=== PATIENT | male | born 1950 | race African-American/Black ===

== ENCOUNTER 2020-04-12 14:48 | Outpatient (RCR) | payer MEDICARE, OTHER, SELFPAY | END 2020-04-12 23:59 | LOC: IMMUN 14:48 | PROVIDERS: PCP Nurse Practitioner Family; Referring Provider Family Medicine; Visit Provider Family Medicine | DX: Z23 Encounter for immunization (principal) | CPT/HCPCS: 0011A; 0012A ==

== ENCOUNTER → 2022-05-07 | Outpatient (CLI) | payer MEDICARE, OTHER, SELFPAY ==
[2022-05-07] MEDS: 0.9% NaCl Peripheral Flush Adult/Peds IV (11:52)
[2022-05-07] MEDS: 0.9% NaCl IVPB Med Flush (250 mL) 15 ML IV (11:52)
[2022-05-07 11:53] VITALS: BP 146/78; PULSE 88; RESP 16; TEMP 36.2; O2SAT 98; BMI 26.1
[2022-05-07 14:09] VITALS: BP 126/64; PULSE 78; RESP 16; O2SAT 98
== END | disposition home or self-care (01) ==
LOC: MEDOUTP 10:56
PROVIDERS: PCP Nurse Practitioner Family; Referring Provider Internal Medicine Nephrology; Visit Provider Internal Medicine Nephrology
DX: N18.4 Chronic kidney disease, stage 4 (severe) (principal); D63.1 Anemia in chronic kidney disease
CPT/HCPCS: 96365; 96366; J1756; J7050; A4216

== ENCOUNTER → 2022-05-13 | Outpatient (CLI) | payer MEDICARE, OTHER, SELFPAY ==
[2022-05-13 12:10] VITALS: BP 144/70; PULSE 77; RESP 16; TEMP 35.9; O2SAT 100; BMI 25.0
[2022-05-13] MEDS: 0.9% NaCl IVPB Med Flush (250 mL) 15 ML IV (12:21)
[2022-05-13] MEDS: 0.9% NaCl Peripheral Flush Adult/Peds IV (12:21)
[2022-05-13 14:28] VITALS: BP 129/67; PULSE 81; RESP 17; TEMP 36.1; O2SAT 97
== END | disposition home or self-care (01) ==
LOC: MEDOUTP 11:57
PROVIDERS: PCP Nurse Practitioner Family; Referring Provider Internal Medicine Nephrology; Visit Provider Internal Medicine Nephrology
DX: N18.4 Chronic kidney disease, stage 4 (severe) (principal); D63.1 Anemia in chronic kidney disease
CPT/HCPCS: 96365; 96366; J1756; J7050; A4216

== ENCOUNTER → 2022-05-20 | Outpatient (CLI) | payer MEDICARE, OTHER, SELFPAY ==
[2022-05-20 12:04] VITALS: BP 153/71; PULSE 84; RESP 16; TEMP 36; O2SAT 100; BMI 25.0
[2022-05-20] MEDS: 0.9% NaCl IVPB Med Flush (250 mL) 15 ML IV (12:12)
[2022-05-20] MEDS: 0.9% NaCl Peripheral Flush Adult/Peds IV (12:12)
[2022-05-20 14:16] VITALS: BP 143/71; PULSE 82
== END | disposition home or self-care (01) ==
LOC: MEDOUTP 11:48
PROVIDERS: PCP Nurse Practitioner Family; Referring Provider Internal Medicine Nephrology; Visit Provider Internal Medicine Nephrology
DX: N18.4 Chronic kidney disease, stage 4 (severe) (principal); D63.1 Anemia in chronic kidney disease
CPT/HCPCS: 96365; 96366; J1756; J7050; A4216

== ENCOUNTER 2022-06-11 14:21 | Inpatient (IN) | payer MEDICARE, OTHER, SELFPAY ==
[2022-06-11 13:29] VITALS: BMI 20.4
[2022-06-11 13:30] VITALS: BP 120/62; PULSE 83; RESP 16; TEMP 36.6; O2SAT 94
--- NOTE | 2022-06-11 15:03 | WOUNDNOTE ---
wound photo: sacrum
--- NOTE | 2022-06-11 15:08 | WOUNDNOTE ---
wound photo: sacrum
--- NOTE | 2022-06-11 16:32 | RAD_ITS ---
STUDY: X-RAY CHEST REASON FOR EXAM: Male, 72 years old. cough TECHNIQUE: PA and lateral views of the chest. COMPARISON: None. FINDINGS: Left costophrenic angle blunting is noted with chronic effusion not excluded. There is no demonstrated pleural abnormality. Normal size heart. Normal mediastinum and leslie. Normal visualized pulmonary arteries. There is prominence along the left lateral mediastinum which is concerning for underlying aortic aneurysm though not completely characterized. There are diffuse degenerative changes of the visualized thoracic spine. Normal visualized ribs, clavicles, and shoulders. There is no demonstrated abnormality of the visualized soft tissue structures of the upper abdomen. RAD/Chest PA and Lateral IMPRESSION: There is a smooth bordered shadow overlying the left aspect of the aortic arch and mediastinum concerning for underlying thoracic aortic aneurysm with chronic layering left effusion also a consideration. Recommend cross-sectional CT chest imaging with contrast for further characterization and baseline imaging. Electronically Signed: Rony Luna DO at 17:03 EDT ,
--- NOTE | 2022-06-11 16:34 | CON.PCM.SX_ITS ---
Assessment & Plan Assessment/Plan (1) Chronic kidney disease (CKD): PLAN: This is a 72-year-old male with past history of hypertension and hyperlipidemia who has been monitored for a diagnosis of chronic kidney disease over the previous 7 to 8 years. He appears to have had a gradual deterioration of his renal function with a more acute change this past week. Nephrology, Dr. Carrillo, now plans to initiate hemodialysis for patient?duration unknown. Patient has had no prior history of central line placement, but also does not have a fistula/graft. Therefore, he requires placement of chronic access via a tunneled hemodialysis catheter. This procedure was discussed with the patient in detail to include infection risk. He tentatively accepts the recommendation, but states that he must also discussed these plans with his spouse. Given that Mr. Zelaya is right-hand dominant, I would imagine his left upper extremity would be initially preferred for fistula consideration. Therefore, it is my plan to proceed to the operating room tomorrow early afternoon for ultrasound and fluoroscopy guided placement of right versus left tunneled hemodialysis catheter. Patient should be made n.p.o. past midnight in anticipation of this procedure. HPI Consult Data Date of Consult: 06/11/22 HPI Narrative Reason for Consultation: Placement of tunneled hemodialysis catheter HPI Narrative: ILDA ZELAYA, is a 72 M who presents to [facility] at the behest of his specialist field engineer, Dr. Carrillo for worsening renal function. He states that he has been monitored for the last 70 years for kidney dysfunction, but over the last 2 days developed increasing shortness of breath and weakness. Additionally he has noted a cough, but denies any increased confusion. With these reports, nephrology obtained new labs that showed increase in patient's BUN and creatinine. He was advised to present to the emergency department for evaluation, but first went to [place] emergency department before arriving to our facility. Surgery has been consulted to evaluate patient for possible tunneled hemodialysis access. Mr. Zelaya denies any prior consultation for fistula. He confirms that he is right-handed. He denies any history of central lines or PICC lines. He denies any history of MRSA or staph infections. [facility] Medical History (Updated 06/11/22 @ 16:[address] Bennie Jorgensen MD) CKD (chronic kidney disease), stage IV Hypertension Home Medications cholecalciferol (vitamin D3) 125 mcg (5,000 unit) tablet (Vitamin D3) 125 mcg PO DAILY 05/07/22 [History Last Taken Unknown] ferrous sulfate 325 mg (65 mg iron) tablet (iron) 325 mg PO DAILY 05/07/22 [History Last Taken Unknown] finasteride 5 mg tablet 5 mg PO DAILY 05/07/22 [History Last Taken 06/10/22] losartan 100 mg tablet 100 mg PO DAILY 05/07/22 [History Last Taken 06/10/22] multivitamin 1 tab PO DAILY 05/07/22 [History Last Taken Unknown] simvastatin 40 mg tablet 40 mg PO DAILY 05/07/22 [History Last Taken 06/10/22] tamsulosin 0.4 mg capsule (Flomax) 0.4 mg PO DAILY 05/07/22 [History Last Taken 06/10/22] vardenafil 20 mg tablet 20 mg PO DAILY PRN sexual dysfunction 05/07/22 [History Last Taken Unknown] amlodipine 10 mg tablet 10 mg PO DAILY bp 06/11/22 [History Last Taken Unknown] furosemide 40 mg tablet 40 mg PO DAILY PRN swelling 06/11/22 [History Last Taken Unknown] hydrocodone-acetaminophen 5-325mg 5mg-325mg 1 tab PO Q6H PRN Pain 06/11/22 [History Last Taken 06/10/22] Allergy/AdvReac Type Severity Reaction Status Date / Time No Known Allergies Allergy Verified 05/20/22 12:04 Family History no significant family his Surgical History (Updated 06/11/22 @ 13:42 by Reny Funes) H/O knee surgery Social History Smoking Status: Former smoker Physical Exam Const Constitutional Narrative: Patient appears somewhat drowsy and slow to respond at times General Appearance: cooperative Neck Neck Narrative: No scars along bilateral neck or upper chest. No signs of rash or infection Charges/Coding Visit Charges Inpatient E&M: 45246 Init Hosp L2
[2022-06-11 16:55] VITALS: O2SAT 86; O2SAT 93
[2022-06-11 16:57] VITALS: BP 118/46; PULSE 84; RESP 18; TEMP 36.7; O2SAT 93
[2022-06-11] MEDS: Tamsulosin HCl 0.4 MG Capsule PO (17:03)
--- NOTE | 2022-06-11 18:15 | CT_ITS ---
EXAM: CT ANGIOGRAPHY CHEST WITHOUT AND WITH INTRAVENOUS CONTRAST CLINICAL INDICATION: abnormal chest x-ray TECHNIQUE: Helically acquired angiography images were obtained of the chest without and with intravenous contrast. This CT exam was performed using one or more of the following dose reduction techniques: automated exposure control, adjustment of the mA and/or kV according to patient size, and/or use of iterative reconstruction technique. This report was created using [employer] [address] [employer] report generation technology. MIP reconstructed images were created and reviewed. CONTRAST: IV 75mL [id number]-[id number] COMPARISON: None. FINDINGS: PULMONARY ARTERIES: Unremarkable. Normal in caliber. No evidence of pulmonary embolism. AORTA: Unremarkable. Normal in caliber. No evidence of dissection. GREAT VESSELS OF AORTIC ARCH: Unremarkable. Normal in caliber. No evidence of dissection. LUNGS AND PLEURAL SPACES: There is a loculated fluid collection at the left base which may represent a loculated effusion. There is also consolidation in the left lower lobe compatible with pneumonia. There is a second fluid collection within the consolidated lung possibly representing developing left lower lobe abscess. No mass. HEART: Unremarkable. Heart size is normal. No pericardial effusion. No significant coronary artery calcifications. MEDIASTINUM: Unremarkable. No mediastinal or hilar adenopathy. Esophagus is unremarkable. No hiatal hernia. THYROID: Unremarkable. No thyroid lesions. BONES/JOINTS: Unremarkable. No suspicious lytic or blastic abnormality. CT/CTA Chest W/WO Contrast IMPRESSION: Large loculated fluid collection in the left lower lobe compatible with a loculated effusion. There is consolidation in the left base compatible with pneumonia. There is a second fluid collection within the consolidated lung which may represent a developing abscess. Electronically Signed: Flo Mcallister MD at 20:01 EDT ,
--- NOTE | 2022-06-11 19:58 | HP.PCM.HOS_ITS ---
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 It was noted that the patient's creatinine had elevated over his baseline and there were concerns that the patient was going into renal failure. Patient had been seen by nephrology for several years and his labs have been monitored for worsening kidney function. Patient's chronic medical problems include hypertension, hyperlipidemia, and BPH. Lab obtained in the emergency room at [facility] revealed his creatinine to be 9.44, BUN was 148, potassium was 3.3, and patient's hemoglobin was 7.5. Patient's creatinine last week was 8 according to the emergency room physician at [facility]. Patient was admitted to PCU, he will be seen by nephrology and also by general surgery for insertion of a tunneled dialysis catheter. [facility] Medical History (Updated 06/11/22 @ 16:[address] Bennie Jorgensen MD) CKD (chronic kidney disease), stage IV Hypertension Home Medications cholecalciferol (vitamin D3) 125 mcg (5,000 unit) tablet (Vitamin D3) 125 mcg PO DAILY 05/07/22 [History Last Taken Unknown] ferrous sulfate 325 mg (65 mg iron) tablet (iron) 325 mg PO DAILY 05/07/22 [History Last Taken Unknown] finasteride 5 mg tablet 5 mg PO DAILY 05/07/22 [History Last Taken 06/10/22] losartan 100 mg tablet 100 mg PO DAILY 05/07/22 [History Last Taken 06/10/22] multivitamin 1 tab PO DAILY 05/07/22 [History Last Taken Unknown] simvastatin 40 mg tablet 40 mg PO DAILY 05/07/22 [History Last Taken 06/10/22] tamsulosin 0.4 mg capsule (Flomax) 0.4 mg PO DAILY 05/07/22 [History Last Taken 06/10/22] vardenafil 20 mg tablet 20 mg PO DAILY PRN sexual dysfunction 05/07/22 [History Last Taken Unknown] amlodipine 10 mg tablet 10 mg PO DAILY bp 06/11/22 [History Last Taken Unknown] furosemide 40 mg tablet 40 mg PO DAILY PRN swelling 06/11/22 [History Last Taken Unknown] hydrocodone-acetaminophen 5-325mg 5mg-325mg 1 tab PO Q6H PRN Pain 06/11/22 [History Last Taken 06/10/22] Allergy/AdvReac Type Severity Reaction Status Date / Time No Known Allergies Allergy Verified 05/20/22 12:04 Family History no significant family his Surgical History (Updated 06/11/22 @ 13:42 by Reny Funes) H/O knee surgery Social History Smoking Status: Former smoker ROS Constitutional Constitutional: Reports change in weight, fatigue and weakness; Denies anorexia, fever(s) or night sweats Eyes Eyes: Denies blurry vision, change in vision, discharge from eye(s) or eye pain Cardiovascular Cardiovascular: Denies chest pain, claudication, dyspnea on exertion, edema or palpitations Respiratory/Chest Respiratory/Chest: Reports cough; Denies hemoptysis, shortness of breath at rest or shortness of breath with exertion Gastrointestinal Gastrointestinal: Denies abdominal pain, constipation, diarrhea, hematemesis, hematochezia, melena, nausea or vomiting Genitourinary Genitourinary: Denies dysuria, hematuria, urinary frequency, urinary hesitancy, urinary incontinence or urinary urgency Musculoskeletal Musculoskeletal: Denies back pain, joint pain, joint stiffness, joint swelling, myalgias or neck pain Neurologic Neurologic: Denies abnormal gait, abnormal speech, dizziness, focal weakness, headache(s), loss of vision, numbness, other visual disturbances, paresthesias, syncope or tingling Psychiatric Psychiatric: Denies anxiety, cognitive impairment, depression, irritability, mood swings or suicidal ideation Endocrine Endocrinology: Denies change in body appearance, cold intolerance, excessive sweating, heat intolerance, polydipsia or polyuria Hematologic/Lymphatic Hematologic/Lymphatic: Denies none, anemia, easy bleeding, easy bruising or lymphadenopathy Allergic/Immunologic Allergic/Immunologic: Denies rhinitis, urticaria, eczemia or asthma Vital Signs Vital Signs Vital Signs: 06/11/22 13:30 06/11/22 16:55 06/11/22 16:57 Temperature 97.8 F 98.1 F Temperature Source Oral Oral Pulse Rate 83 84 Respiratory Rate 16 18 Respiratory Effort Respiratory Depth Respiratory Pattern Blood Pressure 120/62 118/46 L Blood Pressure Mean 81 70 Blood Pressure Source Monitor Monitor Blood Pressure Position Semi-Fowlers Semi-Fowlers Blood Pressure Location Right Arm Right Arm Pulse Ox 94 86 93 Oxygen Delivery Method Room Air Room Air Nasal Cannula Oxygen Flow Rate (L/min) 2 06/11/22 16:55 06/11/22 14:00 06/11/22 17:14 Temperature Temperature Source Pulse Rate Respiratory Rate Respiratory Effort Normal Non-Labored Normal Non-Labored Respiratory Depth Normal Normal Respiratory Pattern Normal Normal Blood Pressure Blood Pressure Mean Blood Pressure Source Blood Pressure Position Blood Pressure Location Pulse Ox 93 Oxygen Delivery Method Nasal Cannula Room Air Nasal Cannula Oxygen Flow Rate (L/min) 2 2 Weight Weight: 70.1 kg Body Mass Index (BMI) 20.4 Physical Exam Const alert, oriented x3 and no apparent distress Constitutional Narrative: Patient appears cachectic and unwell General Appearance: cooperative, well kempt and well developed Orientation / Consciousness: awake, oriented to person, oriented to place and oriented to time HEENT normocephalic, head/scalp atraumatic, hearing grossly normal bilaterally and moist oral mucous membranes Eyes PERRL, EOMs intact bilaterally and conjunctivae normal Neck supple, no JVD, thyroid normal and no carotid bruits General: trachea midline Resp normal respiratory effort, no retractions and no use of accessory muscles Resp Narrative: Inspiratory rales are noted over the lower lung buckner bilaterally Auscultation: rales bilateral lower; Negative for rhonchi or wheezes Cardio regular rate, regular rhythm, S1 normal heart sound, S2 normal heart sound, no murmurs, no rub and no gallops GI normal to inspection, nondistended, normoactive bowel sounds, soft to palpation, non-tender and non-distended Extremity no clubbing, cyanosis or edema Skin no rashes or lesions noted General Skin Exam: no breakdown Neuro oriented x3, CN's II-XII intact bilaterally, moves all extremities, no focal motor deficits and no sensory deficits noted Sensorium / Orientation: awake and alert Speech: speech normal Psych affect normal Results Radiology Impression Chest X-Ray 06/11/22 16:32 IMPRESSION: There is a smooth bordered shadow overlying the left aspect of the aortic arch and mediastinum concerning for underlying thoracic aortic aneurysm with chronic layering left effusion also a consideration. Recommend cross-sectional CT chest imaging with contrast for further characterization and baseline imaging. Electronically Signed: Rony Luna DO at 17:03 EDT , Assessment & Plan Assessment/Plan (1) Chronic kidney disease (CKD): PLAN: Plan 1. Acute renal failure on a backdrop of chronic kidney disease stage IV-patient was admitted to PCU as a direct admission from [facility], he will be seen in consultation by nephrology, he will be seen by general surgery for placement of a tunneled dialysis catheter. Labs will be monitored. #2 essential hypertension-patient will remain on his current blood pressure medications and his blood pressure will be monitored #3 cough-nonproductive according to patient, etiology unclear-I have decided to order chest x-ray, patient stated that he has not had a chest x-ray recently, d epending on this result, he may need to have further imaging studies. #4 anorexia-etiology unclear, according to nursing, patient and patient's spouse have told nursing that he has lost 20 to 30 pounds of weight over the last few months, this may be due to increasing kidney failure or some other process such as a neoplasm. Patient will be seen by nutritional services #5 BPH-patient's bladder will be scanned to make sure he is not retaining urine, I will talk to nephrology regarding the last time the patient had an ultrasound of the kidneys. Total clinical time spent by myself addressing the patient's medical issues, reviewing all of his data, and collaborating with patient's care team: 75 minutes Charges/Coding Visit Charges Inpatient E&M: 46436 Init Hosp L3
--- NOTE | 2022-06-11 20:35 | PCM.HOSP.N ---
Hospitalist Note Patient had abnormal chest x-ray done this afternoon, it required a CTA of the chest which showed a possible pneumonia at the left lung base, there was also noted to be a large loculated fluid collection in the left lower lobe compatible with a loculated effusion. I will obtain sputum cultures on the patient, get blood cultures x2, I have the patient be seen by pulmonary medicine, and placed the patient on IV Rocephin and Zithromax.
[2022-06-11] MEDS: Ceftriaxone 1 GM/50 ML BAG IV (21:47)
[2022-06-11] MEDS: Atorvastatin Calcium 20 MG Tablet PO (21:53)
[2022-06-11 21:54] VITALS: BP 124/56; PULSE 91; RESP 18; TEMP 36.8; O2SAT 95
[2022-06-11 23:10] VITALS: O2SAT 88
[2022-06-11 23:16] VITALS: O2SAT 93
--- NOTE | 2022-06-11 23:19 | NURSING ---
pt refused heparin subq and also refused 2nd set of blood cultures. Pt education provided, pt continues to refused. aware.
[2022-06-12] VITALS (10 sets, daily range): BP systolic 89–126; BP diastolic 42–78; PULSE 65–100; RESP 16–18; TEMP 36.1–36.8; O2SAT 88–100; BMI 20.4
--- NOTE | 2022-06-12 | FLU_PTH ---
PATIENT: ILDA CAST LOC: [facility] U#:[id number] AGE/SX: 72/M ROOM: [facility] RE06/11/[address]: Dr. Deon Boucher DO : 1950 BED: 1 DIS: 06/12/2022 SPEC #: [id number] RECD: 06/12/22 12:32 STATUS: RUSSEL RE #: [id number] SEBASTIEN: 06/12/22 00:[address]: Deon Boucher DEPT: CYTOLOGY RECD BY: Griselda Singh ENTERED: 06/13/22 10:03 SP TYPE: Fluid OTHR DR: MD Dr. Brandyn Espinal DO Dr. Jayaprakas Dasari, MD Dr. Lee Ann Baggott, MD Dr. Michael Bortz, MD Dr. Tanmay Panchabhai, MD Christina Muller, GATE WATCHMAN-C Jossue Yeboah, GATE WATCHMAN-C Tissues: Pleural fluid, NOS Procedures: Special Stain Group II Surgery Specimen Level IV Cytospin Fluid HEADER OPERATION: Ultrasound-guided thoracentesis left PRE-OP DIAGNOSIS: Left pleural effusion TISSUE SUBMITTED: Thoracentesis fluid for cytology DIAGNOSIS CYTOLOGY Thoracentesis fluid for cytology (cytospin and cell block): Negative for malignant cells. Marked acute inflammation. AM:barbara 06/14/2022 COMMENT Case has been reviewed in consultation with Dr. Grant who concurs with the above diagnosis. IDC:SJ CYTOLOGY STUDY Slides are reviewed. CYTOLOGY GROSS Received is 90 ml of milky white fluid labeled with the patient's name and and designated per the requisition as thoracentesis. Submitted for cytology preparation including cell block. / barbara 06/13/2022 TC:2 CPT: 82040, 53926
--- NOTE | 2022-06-12 05:14 | NURSING ---
pt refused AM lab works, notified.
--- NOTE | 2022-06-12 05:55 | EKG12_ITS ---
Test Reason : AM EKG Blood Pressure : / mmHG Vent. Rate : 088 BPM Atrial Rate : 088 BPM P-R Int : 166 ms QRS Dur : 112 ms QT Int : 388 ms P-R-T Axes : 047 014 064 degrees QTc Int : 469 ms Normal sinus rhythm Minimal voltage criteria for LVH, may be normal variant ( [place] ) Borderline ECG No previous ECGs available Confirmed by TRAM CASEY, LILIAN ([id number]), editor publications MIRTHA MELGAR ([id number]) on 06/13/2022 9:26:00 AM Referred By: Deon Boucher Confirmed By:LILIAN UGALDE MD
--- NOTE | 2022-06-12 10:00 | EX.PCM.CONCC ---
Assessment & Plan Assessment/Plan (1) Pleural effusion, left: PLAN: Plan RECOMMENDATIONS: 1. Obtain diagnostic and therapeutic thoracentesis on the left 2. Possible transfer for CT surgery evaluation 3. Consider temporary hemodialysis line until empyema can be ruled out 4. Encourage incentive spirometer 5. Outpatient evaluation with pulmonary function testing 6. Agree with empiric antibiotics IMPRESSIONS: 1. Acute hypoxic respiratory insufficiency secondary to new left pleural effusion with possible abscess Review of the CT scan does show findings consistent with a partially loculated left pleural effusion and potential secondary abscess. High clinical suspicion for empyema versus parapneumonic effusion. Patient does have some emphysematous changes, but this does not appear to be significant. Metabolic acidosis will increase respiratory muscle demand, but patient appears to be relatively comfortable at this time. A diagnostic and therapeutic thoracentesis has been ordered. If this is consistent with empyema, patient will have to be transferred for CT surgery evaluation. Patient will be at risk for bronchopleural fistula given the close proximity of possible abscess and pleural effusion. 2. Acute on chronic kidney disease Nephrology has been consulted. Patient with significant elevation of BUN and creatinine. Would consider placement of a temporary hemodialysis line as patient may be bacteremic given CT scan of the chest. Defer to surgery and primary service. Hemodialysis likely does not need to have much volume removal as patient appears to be overall volume low, likely secondary to decreased p.o. intake. However, acid-base and improvement in uremia will decrease metabolic demand for respiratory compensation. 3. Chronic pain syndrome/BPH/hypertension/Trypanophobia Complicates care, management, recovery and prognosis. Okay to continue with baseline medications from my perspective. We will continue to work with the patient to allow for blood draws and invasive procedures necessary to make a diagnosis. Patient's appears to be significantly helpful in this aspect. Would hold on any further diuretics HPI Consult Data Date of Consult: 06/12/22 HPI Narrative HPI Narrative: ILDA CAST is a 72 M, with past medical history listed below, who presents to [facility] 06/11/2022 as a direct transfer from [facility] secondary to abnormal labs. 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 Patient had been seen by nephrology for several years secondary to chronic kidney disease associated with hypertension. At the outside facility, patient was noted to have a creatinine of 9.44 with a BUN of 148, potassium of 3.3 and a hemoglobin of 7.5. Patient was admitted to be PCU for a possible tunneled hemodialysis catheter. After admission, patient has CTA of the chest suggestive of a possible pulmonary abscess versus empyema. Patient had initially refused labs until his arrived, so additional information was difficult to obtain. Most of the history that I have is from the at the bedside. Patient reportedly had had a productive cough in February for 2 to 3 weeks. Patient's is unclear if the patient received any antibiotics, but he was given Lasix with some improvement. Recently, patient had continued to have a cough productive of clear to white sputum. Patient's reports he has been more whiny with decreased p.o. intake over the last 2 to 3 weeks. Patient had not reported any chest discomfort and was unaware of any fevers. Patient does have a long smoking history, but quit sometime ago. Patient has never seen a manager helpdesk or had PFTs done. Patient does not require supplemental oxygen at baseline, but has been noted to be 86% on room air at rest while in the hospital. Patient has had some dry mouth, but is not reporting any polyuria or polydipsia. Patient has had significant weight loss that his attributes to his anorexia. Review of systems otherwise negative from a constitutional, HEENT, respiratory, cardiovascular, GI, genitourinary, musculoskeletal, skin, neurologic, psychiatric and hematologic system unless stated above. [facility] Medical History CKD (chronic kidney disease), stage IV Hypertension Home Medications cholecalciferol (vitamin D3) 125 mcg (5,000 unit) tablet (Vitamin D3) 125 mcg PO DAILY 05/07/22 [History Last Taken Unknown] ferrous sulfate 325 mg (65 mg iron) tablet (iron) 325 mg PO DAILY 05/07/22 [History Last Taken Unknown] finasteride 5 mg tablet 5 mg PO DAILY 05/07/22 [History Last Taken 06/10/22] losartan 100 mg tablet 100 mg PO DAILY 05/07/22 [History Last Taken 06/10/22] multivitamin 1 tab PO DAILY 05/07/22 [History Last Taken Unknown] simvastatin 40 mg tablet 40 mg PO DAILY 05/07/22 [History Last Taken 06/10/22] tamsulosin 0.4 mg capsule (Flomax) 0.4 mg PO DAILY 05/07/22 [History Last Taken 06/10/22] vardenafil 20 mg tablet 20 mg PO DAILY PRN sexual dysfunction 05/07/22 [History Last Taken Unknown] amlodipine 10 mg tablet 10 mg PO DAILY bp 06/11/22 [History Last Taken Unknown] furosemide 40 mg tablet 40 mg PO DAILY PRN swelling 06/11/22 [History Last Taken Unknown] hydrocodone-acetaminophen 5-325mg 5mg-325mg 1 tab PO Q6H PRN Pain 06/11/22 [History Last Taken 06/10/22] Allergy/AdvReac Type Severity Reaction Status Date / Time No Known Allergies Allergy Verified 05/20/22 12:04 Family History no significant family his Surgical History H/O knee surgery Social History Smoking Status: Former smoker ROS ROS Narrative See HPI Physical Exam Const alert, oriented x3 and no apparent distress Constitutional Narrative: Patient appears cachectic and unwell HEENT normocephalic, head/scalp atraumatic and hearing grossly normal bilaterally HEENT Narrative: Dry mucous membranes Eyes PERRL, EOMs intact bilaterally and conjunctivae normal Neck supple, no JVD, thyroid normal and no carotid bruits General: trachea midline Lymph Lymphatic Narrative: Some cervical lymphadenopathy appreciated Resp normal respiratory effort, no retractions and no use of accessory muscles Auscultation: rales bilateral lower and diminished lung sounds left lower; Negative for rhonchi or wheezes Percussion: dullness Lower: left Cardio regular rate, regular rhythm, S1 normal heart sound, S2 normal heart sound, no murmurs, no rub and no gallops GI normal to inspection, nondistended, normoactive bowel sounds, soft to palpation, non-tender and non-distended no CVA tenderness Extremity no clubbing, cyanosis or edema Skin no rashes or lesions noted General Skin Exam: no breakdown Neuro oriented x3, CN's II-XII intact bilaterally, moves all extremities, no focal motor deficits and no sensory deficits noted Psych Mood & Affect: anxious and flat affect Medical Records Data Attestation: I reviewed the patient's medical records Lab / Micro Data Attestation: I reviewed the patient's lab results. Result Diagrams: 06/12/22 09:50 06/12/22 09:50 Micro: Microbiology 06/11/22 22:08 Urine, Clean Catch Legionella Antigen - Final 06/11/22 22:08 Urine, Clean Catch Streptococcus pneumoniae Antigen (M - Final Radiology Impression Chest X-Ray 06/11/22 16:32 IMPRESSION: There is a smooth bordered shadow overlying the left aspect of the aortic arch and mediastinum concerning for underlying thoracic aortic aneurysm with chronic layering left effusion also a consideration. Recommend cross-sectional CT chest imaging with contrast for further characterization and baseline imaging. Electronically Signed: Rony Luna DO at 17:03 EDT , Chest CTA 06/11/22 18:15 IMPRESSION: Large loculated fluid collection in the left lower lobe compatible with a loculated effusion. There is consolidation in the left base compatible with pneumonia. There is a second fluid collection within the consolidated lung which may represent a developing abscess. Electronically Signed: Flo Mcallister MD at 20:01 EDT ,
[2022-06-12 10:26] LABS: International Normalized Ratio 1.4; Prothrombin Time (Protime)PT. 17.2 SECONDS (11.7-14.9)
[2022-06-12 10:27] LABS: LDH 133 U/L (87-241)
[2022-06-12 10:32] LABS: Absolute Lymphocyte Count 1.08 X10^3/uL (0.83-4.51); Basophil# 0.02 X10^3/uL; Basophil% 0.2 % (0-1); Eosinophil# 0.09 X10^3/uL; Hematocrit 19.9 % (40-54); Hemoglobin 6.7 g/dL (13.0-16.5); Lymphocyte # 1.08 X10^3/ul (0.83-4.51); Lymphocyte % 11.9 % (19-41); Mean Corp Hgb Conc 33.7 g/dL (32-36); Mean Corpuscular Hgb 25.4 pg (27.0-32.0); Mean Corpuscular Volume 75.4 fL (80-94); Mean Platelet Vol. 8.9 fl (6.2-12.0); Monocyte# 0.81 X10^3/uL; Monocyte% 8.9 % (0-10); NRBC Flagged by Analyzer 0 % (0-5); Neutrophil # 7.01 X10^3/uL (2.7-7.7); Neutrophil % 77.3 % (47-70); POSITIVE MORPHOLOGY YES; Platelet Count 353 K/mm3 (150-450); RBC Distribution Width CV 16.7 % (11.6-14.6); RBC Distribution Width SD 45.4 fl (35.1-43.9); Red Blood Count 2.64 M/mm3 (4.6-6.2); White Blood Count 9.1 K/mm3 (4.4-11.0)
[2022-06-12 10:33] LABS: ALB/GLOB Ratio 0.3 RATIO (0.9-2.4); AST(SGOT) 9 U/L (15-37); Alanine Aminotransfer ALT/SGPT 16 U/L (16-61); Albumin, Serum 1.6 g/dL (3.2-5.0); Alkaline Phosphatase 61 U/L (45-117); Anion Gap 13 (5-15); BUN 148 mg/dL (7-18); BUN/Creat Ratio 15.8 RATIO (10-20); Calcium,Total 8.3 mg/dL (8.5-10.1); Chloride 103 mmol/L (98-107); Creatinine, Serum 9.35 mg/dL (0.70-1.30); EST Glomerular Filtration Rate 6 mL/min (>60); Est Glom Filt Rate - Afr Amer 7 mL/min (>60); Estimated Creatinine Clearance 7.08 ml/min; Globulin 5.8 g/dL (2.2-4.2); Glucose 109 mg/dL (74-106); Magnesium 2.7 mg/dL (1.6-2.6); Partial Thromboplast Time 33.1 Seconds (24.1-36.2); Phosphorus 7.8 mg/dL (2.5-4.9); Potassium 3.3 mmol/L (3.5-5.1); Protein, Total 7.4 g/dL (6.4-8.2); Sodium Level 134 mmol/L (136-145)
[2022-06-12 10:39] LABS: Differential Indicated SCAN CRITERIA MET
--- NOTE | 2022-06-12 11:25 | US_ITS ---
PROCEDURE: ULTRASOUND GUIDED THORACENTESIS. DATE: June 12, 2022. INDICATION: Male, 72 years old. Left pleural effusion. PHYSICIAN: Harshil Craft M.D. PROCEDURE: The risks, benefits, and alternatives to the procedure were explained to the patient. The specific risks of bleeding, infection, and pneumothorax requiring chest tube insertion were discussed and accepted. Written informed consent was obtained. Ultrasonographic evaluation of the left lower pleural space was carried out. An adequate pocket was identified. The patient was placed in the sitting, upright position. The overlying skin was prepped and draped in sterile fashion. 1% lidocaine was administered subcutaneously for local anesthesia. Under ultrasound guidance, a 5 [place] thoracentesis needle/catheter system was advanced into the left posterior lower pleural fluid collection. Approximately 530 mL of purulent fluid was drained. The catheter was removed, and a sterile dressing was applied. A specimen was collected and sent to the laboratory for analysis, as requested by the referring clinician. The patient tolerated the procedure well. A chest x-ray was ordered. US/Thoracentesis W US IMPRESSION: Ultrasound-guided left thoracentesis. Electronically Signed: Harshil Craft MD at 12:52 EDT ,
[2022-06-12 11:38] LABS: Hypochromasia 1+
[2022-06-12] MEDS: Lidocaine 2% (20 ml mdv) 20 ML Vial INFILT (12:16)
--- NOTE | 2022-06-12 12:25 | RAD_ITS ---
STUDY: X-RAY CHEST REASON FOR EXAM: Male, 72 years old. Pneumothorax -- immediately post thoracentesis TECHNIQUE: AP inspiration and expiration views following a left thoracentesis. COMPARISON: Comparison is made with prior study dated June 11, 2022. FINDINGS: No evidence of pneumothorax. Mild residual left pleural-parenchymal changes. RAD/Chest Insp/Exp 2 View IMPRESSION: No evidence of pneumothorax on the immediate post left thoracentesis images. Mild degree of residual pleural parenchymal changes at the left lung base. Electronically Signed: Harshil Craft MD at 12:46 EDT ,
[2022-06-12 12:38] LABS: Cytology, Body Fluid / CSF SEE PATHOLOGY REPORT
[2022-06-12] MEDS: 0.9% Saline Lock 10 ML Syringe IV (13:11)
[2022-06-12] MEDS: Cefazolin 2 GM in 0.9% Normal Saline 100 ML IV (13:11)
--- NOTE | 2022-06-12 13:19 | CON.PCM.RE_ITS ---
Assessment & Plan Assessment/Plan (1) CKD stage 5 secondary to hypertension: PLAN: CKD stage V for several months. Had some uremic symptoms at the time of his last visit, recommended dialysis but he did not want to proceed. Came in with worsening azotemic and uremic symptoms. he needs to start dialysis. Plan was to have a tunneled dialysis catheter for dialysis initiation. Overnight he had a CT chest with contrast which showed empyema. Discussed with hospitalist. Plan is to get a pleural Today. If this is consistent with e mpyema, he will likely need to be transferred to tertiary care center for initiation of dialysis. Discussed with at bedside. HPI Consult Data Date of Consult: 06/12/22 HPI Narrative Reason for Consultation: cele HPI Narrative: ILDA CAST, is a 72 M who presents to the hospital with acute renal failure. Nephrology consultation requested due to advanced renal failurre. He is well known to me from my office. History of CKD stage V. He was seen in the office last month and at that time his GFR was 13 and he had uremic symptoms including lower extremity edema, shortness of breath and cough. Advised him to start dialysis but he was somewhat reluctant. He was supposed to come into the office next week, reported blood work showed extremely high BUN and creatinine since he was sent into the emergency room. Looks markedly cachectic. Poor appetite, significant weight loss. Lower extremity edema is resolved. No asterixis. [facility] Medical History CKD (chronic kidney disease), stage IV Hypertension Home Medications cholecalciferol (vitamin D3) 125 mcg (5,000 unit) tablet (Vitamin D3) 125 mcg PO DAILY 05/07/22 [History Last Taken Unknown] ferrous sulfate 325 mg (65 mg iron) tablet (iron) 325 mg PO DAILY 05/07/22 [History Last Taken Unknown] finasteride 5 mg tablet 5 mg PO DAILY 05/07/22 [History Last Taken 06/10/22] losartan 100 mg tablet 100 mg PO DAILY 05/07/22 [History Last Taken 06/10/22] multivitamin 1 tab PO DAILY 05/07/22 [History Last Taken Unknown] simvastatin 40 mg tablet 40 mg PO DAILY 05/07/22 [History Last Taken 06/10/22] tamsulosin 0.4 mg capsule (Flomax) 0.4 mg PO DAILY 05/07/22 [History Last Taken 06/10/22] vardenafil 20 mg tablet 20 mg PO DAILY PRN sexual dysfunction 05/07/22 [History Last Taken Unknown] amlodipine 10 mg tablet 10 mg PO DAILY bp 06/11/22 [History Last Taken Unknown] furosemide 40 mg tablet 40 mg PO DAILY PRN swelling 06/11/22 [History Last Taken Unknown] hydrocodone-acetaminophen 5-325mg 5mg-325mg 1 tab PO Q6H PRN Pain 06/11/22 [History Last Taken 06/10/22] Allergy/AdvReac Type Severity Reaction Status Date / Time No Known Allergies Allergy Verified 05/20/22 12:04 Family History no significant family his Surgical History H/O knee surgery Social History Smoking Status: Former smoker ROS ROS Narrative negative except above Physical Exam Narrative Alert awake oriented x 3 no obvious distress no pallor no icterus no JVD s1s2 no murmurs lungs clear abdomen soft no organomegaly no edema no cyanosis Lab / Micro Data Result Diagrams: 06/12/22 09:50 06/12/22 09:50 Labs: Laboratory Results - last 24 hr 06/12/22 09:50: WBC 9.1, RBC 2.64 L, Hgb 6.7 L, Hct 19.9 L, MCV 75.4 L, MCH 25.4 L, MCHC 33.7, RDW Std Deviation 45.4 H, RDW Coeff of Radhika 16.7 H, Plt Count 353, MPV 8.9, Immature Gran % (Auto) 0.700, Neut % (Auto) 77.3 H, Lymph % (Auto) 11.9 L, Waldo % (Auto) 8.9, Eos % (Auto) 1.0, Baso % (Auto) 0.2, Absolute Neuts (auto) 7.0, Absolute Lymphs (auto) 1.08, Nucleated RBC % 0, Hypochromasia 1+ 06/12/22 09:50: PT 17.2 H, INR 1.4 06/12/22 09:50: Sodium 134 L, Potassium 3.3 L, Chloride 103, Carbon Dioxide 18.0 L, Anion Gap 13, BUN 148 H*, Creatinine 9.35 H*, Estim Creat Clear Calc 7.08, Est GFR (MDRD) Af Amer 7 L, Est GFR (MDRD) Non-Af 6 L, BUN/Creatinine Ratio 15.8, Glucose 109 H, Calcium 8.3 L, Phosphorus 7.8 H, Magnesium 2.7 H, Total Bilirubin 0.30, AST 9 L, ALT 16, Alkaline Phosphatase 61, Total Protein 7.4, Albumin 1.6 L, Globulin 5.8 H, Albumin/Globulin Ratio 0.3 L 06/12/22 09:50: APTT 33.1 06/12/22 09:50: Lactate Dehydrogenase 133 Micro: Microbiology 06/11/22 22:08 Urine, Clean Catch Legionella Antigen - Final 06/11/22 22:08 Urine, Clean Catch Streptococcus pneumoniae Antigen (M - Final Radiology Impression Chest X-Ray 06/11/22 16:32 IMPRESSION: There is a smooth bordered shadow overlying the left aspect of the aortic arch and mediastinum concerning for underlying thoracic aortic aneurysm with chronic layering left effusion also a consideration. Recommend cross-sectional CT chest imaging with contrast for further characterization and baseline imaging. Electronically Signed: Rony Luna DO at 17:03 EDT , Chest CTA 06/11/22 18:15 IMPRESSION: Large loculated fluid collection in the left lower lobe compatible with a loculated effusion. There is consolidation in the left base compatible with pneumonia. There is a second fluid collection within the consolidated lung which may represent a developing abscess. Electronically Signed: Flo Mcallister MD at 20:01 EDT , Thoracentesis Ultrasound 06/12/22 11:25 IMPRESSION: Ultrasound-guided left thoracentesis. Electronically Signed: Harshil Craft MD at 12:52 EDT , Chest X-Ray 06/12/22 12:25 IMPRESSION: No evidence of pneumothorax on the immediate post left thoracentesis images. Mild degree of residual pleural parenchymal changes at the left lung base. Electronically Signed: Harshil Craft MD at 12:46 EDT ,
[2022-06-12 13:25] LABS: Body Fluid Mononuclear WBC % 28.2 %; Body Fluid Polynuclear WBC % 71.8 %; Red Cell Count/Body Fluid 0.133 10^6/ul
[2022-06-12 14:32] LABS: Glucose, Body Fluid 14 mg/dL (40-70)
[2022-06-12 15:11] LABS: Lymphocytes 1 %; Neutrophil (Segs) 94 %; Other Cell Type/BF 5 %
[2022-06-12 15:13] LABS: Auto B Fluid Analyzer BKGD Ct COUNTS W/IN LIMITS (W/IN LIMITS)
[2022-06-12 15:14] LABS: Appearance/Body Fluid TURBID; Color/Body Fluid YELLOW; Source- Body Fluid THORACENTESIS
[2022-06-12 15:15] LABS: Body Fluid QC Type(s) BF2Q
--- NOTE | 2022-06-12 15:58 | DS.PCM_ITS ---
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 Comment: wound on coccyx 06/11/22 16:02 Consult: General Surgery Routine Consulting Provider: Bennie Jorgensen Reason for Consult: dialysis cath insertion EMERGENT Consult: No Notified: Yes Date Notified: 06/11/22 Time Notified: 14:30 Method of Notification: Verbal Consult: Nephrology Routine Consulting Provider: Funmilayo Carrillo Reason for Consult: renal failure EMERGENT Consult: No Notified: Yes Date Notified: 06/11/22 Time Notified: 14:30 Method of Notification: Verbal 06/11/22 20:36 Consult: Family Life Counselor / Pulmonary Medicine Routine Consulting Provider: Pulmonary Medicine benigno [place] Reason for Consult: left lower lobe infiltrate/effusion EMERGENT Consult: No Notified: Yes Date Notified: 06/12/22 Time Notified: 07:31 Method of Notification: Text Reason For Visit: RENAL FAILURE Diagnosis Discharge Diagnosis (1) CKD stage 5 secondary to hypertension: Status: Chronic Code(s): I12.0 - Hypertensive chronic kidney disease with stage 5 chronic kidney disease or end stage renal disease; N18.5 - Chronic kidney disease, stage 5 Plan 1. Acute renal failure on a backdrop of chronic kidney disease stage IV #2 essential hypertension-patient will remain on his current blood pressure medications and his blood pressure will be monitored #3 Left-sided empyema-Gram stain positive for gram-positive cocci, exact bacterial etiology unknown at the time of discharge #4 anorexia-etiology unclear #5 BPH #6 acute hypoxia secondary to left-sided empyema Total clinical time spent by myself addressing the patient's medical issues, reviewing all of his data, and collaborating with patient's care team: 75 minutes Medications at Discharge Home Medications cholecalciferol (vitamin D3) 125 mcg (5,000 unit) tablet (Vitamin D3) 125 mcg PO DAILY 05/07/22 ferrous sulfate 325 mg (65 mg iron) tablet (iron) 325 mg PO DAILY 05/07/22 finasteride 5 mg tablet 5 mg PO DAILY 05/07/22 losartan 100 mg tablet 100 mg PO DAILY 05/07/22 multivitamin 1 tab PO DAILY 05/07/22 simvastatin 40 mg tablet 40 mg PO DAILY 05/07/22 tamsulosin 0.4 mg capsule (Flomax) 0.4 mg PO DAILY 05/07/22 vardenafil 20 mg tablet 20 mg PO DAILY PRN sexual dysfunction 05/07/22 amlodipine 10 mg tablet 10 mg PO DAILY bp 06/11/22 furosemide 40 mg tablet 40 mg PO DAILY PRN swelling 06/11/22 hydrocodone-acetaminophen 5-325mg 5mg-325mg 1 tab PO Q6H PRN Pain 06/11/22 Hospital Course Operations None Procedures Thoracentesis Summary of Care Provided Minutes Spent on Discharge: 32 Hospital Course: This 72-year-old white male was directly admitted to PCU from [facility] due to abnormal lab work which had been obtained several days prior indicating the patient had worsening renal failure. Patient is a chronic patient of nephrology (Dr. Carrillo) and abnormal labs were obtained last week and Dr. Carrillo notified the patient to go to the ER for evaluation. Patient went to [facility] ER, labs were obtained which showed an elevated creatinine and BUN, patient's potassium was slightly low, his hemoglobin was also low. Patient was directly admitted to PCU, he was seen and examined by myself and also seen in consultation by nephrology and general surgery initially. Upon examining the patient, he appeared to be unwell and he had a nonproductive cough, I obtained a chest x-ray which showed a possible aortic aneurysm, this was followed up by a CTA of the chest which showed a fluid collection in the left hemithorax suggestive of an abscess. Patient was placed on IV antibiotics and he was seen in consultation by pulmonology who recommended a thoracentesis be performed. Patient initially resisted any lab draws and care, his came in early in the morning on 06/12/2022 and talk to the patient and he changes mind and agreed to the thoracentesis and lab work. Thoracentesis was performed on that date, there was approximately 530 cc of purulent fluid removed and it was felt that the patient would be better served at a tertiary facility due to his empyema. I discussed this extensively with the patient's who requested [facility] in [facility] as a transfer hospital. I contacted [facility] at the request of the patient's and they agree to take the patient for further care. On 06/12/2022, patient was seen and examined: On examination he appeared frail and unwell. Vital signs as documented. Skin warm and dry and without overt rashes. Neck without JVD, neck was supple, trachea midline, thyroid was normal. Lungs-inspiratory rales were noted over the lung bases bilaterally, decreased breath sounds were noted over the left lower lung field. Heart exam notable for regular rhythm, normal sounds and absence of murmurs, rubs or gallops. Abdomen unremarkable and without evidence of organomegaly, masses, or abdominal aortic enlargement. Bowel sounds are present, abdomen is not distended. Extremities nonedematous, no cyanosis was noted, no clubbing was noted. Neuro: Cranial nerves II through XII are grossly intact, no focal motor deficits were noted, sensation to light touch and pinprick intact, motor exam 5/5 throughout. Psych: Patient is alert, his affect is flat and he appears unwell On 06/12/2022, patient was transferred to [facility] in [facility] for further care in stable condition. Medical Records Data Medical Nutrition Assessment Dietitian: Malnutrition Criteria Met Start: 06/12/22 14:21 Freq: Status: Active Protocol: Document 06/12/22 14:21 AG (Rec: 06/12/22 14:21 AG [id number]) Nutrition Malnutrition Evidence of Malnutrition Exists Yes Malnutrition (severe): Chronic Evidenced By Suboptimal Energy Intake ( Severe),Weight Loss (Severe) Clinical Problem Chronic Disease or Condition Related Malnutrition Etiology severe malnutrition related to inadequate energy intake Signs/Symptoms as evidenced by reported poor PO intake meeting <75% of estimated energy needs > 3 weeks, unintentional 55.5#/26% wt loss x3 months Status Active Problem Recommendation Dietitian Recommendations/Changes recommend advance diet as tolerated to renal-general; consider protein restriction if unable to initiate dialysis . Will offer ONS once PO intake is established pending plan of care given evidence of malnutrition. Weight / BMI Weight Weight: 70.1 kg Body Mass Index (BMI) 20.4 ABG / Lab / Microbiology Data Result Diagrams: 06/12/22 09:50 06/12/22 09:50 Laboratory: Laboratory Results - last 24 hr 06/12/22 09:50: WBC 9.1, RBC 2.64 L, Hgb 6.7 L, Hct 19.9 L, MCV 75.4 L, MCH 25.4 L, MCHC 33.7, RDW Std Deviation 45.4 H, RDW Coeff of Radhika 16.7 H, Plt Count 353, MPV 8.9, Immature Gran % (Auto) 0.700, Neut % (Auto) 77.3 H, Lymph % (Auto) 11.9 L, Trinity % (Auto) 8.9, Eos % (Auto) 1.0, Baso % (Auto) 0.2, Absolute Neuts (auto) 7.0, Absolute Lymphs (auto) 1.08, Nucleated RBC % 0, Hypochromasia 1+ 06/12/22 09:50: PT 17.2 H, INR 1.4 06/12/22 09:50: Sodium 134 L, Potassium 3.3 L, Chloride 103, Carbon Dioxide 18.0 L, Anion Gap 13, BUN 148 H*, Creatinine 9.35 H*, Estim Creat Clear Calc 7.08, Est GFR (MDRD) Af Amer 7 L, Est GFR (MDRD) Non-Af 6 L, BUN/Creatinine Ratio 15.8, Glucose 109 H, Calcium 8.3 L, Phosphorus 7.8 H, Magnesium 2.7 H, Total Bilirubin 0.30, AST 9 L, ALT 16, Alkaline Phosphatase 61, Total Protein 7.4, Albumin 1.6 L, Globulin 5.8 H, Albumin/Globulin Ratio 0.3 L 06/12/22 09:50: APTT 33.1 06/12/22 09:50: Lactate Dehydrogenase 133 06/12/22 09:59: Fluid Glucose 14 L*, Fluid Total Protein 4.0 06/12/22 12:36: Fluid Source THORACENTESIS, Fluid Color YELLOW, Fluid Appearance TURBID, Fluid WBC 800.700, Fluid RBC 0.133, Fluid Tot Cell Count 822.100, Fld Polynuclear WBCs # 376.302, Fld Polynuclear WBCs % 71.8, Fluid Mononuclear WBCs 147.665, Fld Mononuclear WBCs % 28.2, Fluid Neutrophils 94, Fluid Lymphocytes 1, Fluid Other Cells 5, Fl Pathologist Comment May follow, Fluid Comment 2 SEE CO MMENT Microbiology: Microbiology 06/11/22 23:03 Sputum, Expectorated/Coughed Gram Stain - Final 06/11/22 22:08 Urine, Clean Catch Legionella Antigen - Final 06/11/22 22:08 Urine, Clean Catch Streptococcus pneumoniae Antigen (M - Final Radiography Diagnostic Testing: Radiology Impression Chest X-Ray 06/11/22 16:32 IMPRESSION: There is a smooth bordered shadow overlying the left aspect of the aortic arch and mediastinum concerning for underlying thoracic aortic aneurysm with chronic layering left effusion also a consideration. Recommend cross-sectional CT chest imaging with contrast for further characterization and baseline imaging. Electronically Signed: Rony Luna DO at 17:03 EDT , Chest CTA 06/11/22 18:15 IMPRESSION: Large loculated fluid collection in the left lower lobe compatible with a loculated effusion. There is consolidation in the left base compatible with pneumonia. There is a second fluid collection within the consolidated lung which may represent a developing abscess. Electronically Signed: Flo Mcallister MD at 20:01 EDT , Thoracentesis Ultrasound 06/12/22 11:25 IMPRESSION: Ultrasound-guided left thoracentesis. Electronically Signed: Harshil Craft MD at 12:52 EDT , Chest X-Ray 06/12/22 12:25 IMPRESSION: No evidence of pneumothorax on the immediate post left thoracentesis images. Mild degree of residual pleural parenchymal changes at the left lung base. Electronically Signed: Harshil Craft MD at 12:46 EDT , Meaningful Use Info Meaningful Use Diagnoses (Choose all that apply): None applicable Discharge Plan Admission Admit Date/Time: 06/11/22 14:21 Attending Provider: Deon Boucher Primary Care Provider: Jossue Yeboah BLANKET BINDER Consulting Providers: Bennie Jorgensen ; Funmilayo Carrillo ; Manuelito Marques ; Brandyn Hannon ; Ceasar Tillman ; Bladimir Michel ; Rhiannon Rodriguez BLANKET BINDER Instructions Patient Instructions: KYM RN Thoracentesis Dc Discharge Orders/Prescriptions Prescriptions: No Action multivitamin Tablet 1 tab PO DAILY simvastatin 40 mg Tablet 40 mg PO DAILY tamsulosin [Flomax] 0.4 mg Capsule 0.4 mg PO DAILY ferrous sulfate [iron] 325 mg (65 mg iron) Tablet 325 mg PO DAILY losartan 100 mg Tablet 100 mg PO DAILY finasteride 5 mg Tablet 5 mg PO DAILY vardenafil [Levitra] 20 mg Tablet 20 mg PO DAILY PRN (Reason: sexual dysfunction) cholecalciferol (vitamin D3) [Vitamin D3] 125 mcg (5,000 unit) Tablet 125 mcg PO DAILY furosemide 40 mg tablet 40 mg PO DAILY PRN (Reason: swelling) Label Comments: take 1 tablet by mouth daily if needed hydrocodone-acetaminophen 5-325 mg tablet 1 tab PO Q6H PRN (Reason: Pain) Label Comments: take 1 tablet by mouth every 6 hours if needed for pain amlodipine 10 mg tablet 10 mg PO DAILY Label Comments: take 1 tablet by mouth once daily Referrals / Follow Up: Jossue Yeboah BLANKET BINDER, BLANKET BINDER-C [Primary Care Provider] - Disposition Discharge Orders: Discharge Patient (Routine); Ordered 06/12/22 Ordered By: Dr. Deon Boucher Charges/Coding Visit Charges Inpatient E&M: 65110 Disch Hosp >30min
[2022-06-12] MEDS: Tamsulosin HCl 0.4 MG Capsule PO (17:52)
[2022-06-12 17:54] LABS: LDH,Body Fluid > 10000 Units/l (Not Establ.)
[2022-06-13 14:18] LABS: Pathologist Comment/Body Fluid Reviewed
== END 2022-06-12 22:33 | disposition short-term general hospital (02) | DRG 682 ==
PROVIDERS: Anesthesiology; Internal Medicine Critical Care Medicine; Admitting Provider Internal Medicine; PCP Nurse Practitioner Family; Referring Provider Internal Medicine; Visit Provider Internal Medicine
DX: N17.9 Acute kidney failure, unspecified (principal); J86.9 Pyothorax without fistula; E43 Unspecified severe protein-calorie malnutrition; I12.0 Hypertensive chronic kidney disease with stage 5 chronic kidney disease or end stage renal disease; J90 Pleural effusion, not elsewhere classified; L89.152 Pressure ulcer of sacral region, stage 2; N18.5 Chronic kidney disease, stage 5; E78.5 Hyperlipidemia, unspecified; B95.4 Other streptococcus as the cause of diseases classified elsewhere; N40.0 Benign prostatic hyperplasia without lower urinary tract symptoms; G89.4 Chronic pain syndrome; R63.0 Anorexia; Z68.20 Body mass index [BMI] 20.0-20.9, adult; Z79.899 Other long term (current) drug therapy; Z87.891 Personal history of nicotine dependence
CPT/HCPCS: 32555; 36415; 71046; 71275; 80053; 82945; 83615; 83735; 84100; 84157; 85025; 85610; 85730; 87040; 87070; 87075; 87077; 87186; 87205; 87449; 88108; 88305; 88313; 89050; 93005; 99406; J2185; Q9967; A4216

== ENCOUNTER → 2022-09-02 | Outpatient (CLI) | payer MEDICARE, OTHER, SELFPAY ==
--- NOTE | 2022-09-02 08:15 | VDUE_ITS ---
Reason For Study: Pre-OP / Renal Failure Right Arm Left Arm Right cephalic vein is compressible. Left cephalic vein is compressible. Right Cephalic Vein at the wrist measures Left Cephalic Vein at the wrist measures 0.17 0.17 x 0.15 cm. x 0.18 cm. Right Cephalic Vein in the forearm measures Left Cephalic Vein in the forearm measures 0.17 x 0.20 cm. 0.14 x 0.16 cm. Right Cephalic Vein below antecub measures Left Cephalic Vein below antecub measures 0.16 x 0.17 cm. 0.12 x 0.16 cm. Right Cephalic Vein above antecub measures Left Cephalic Vein above antecub measures 0.25 x 0.25 cm. 0.16 x 0.16 cm. Right Cephalic Vein mid bicep measures 0.15 x Left Cephalic Vein at mid bicep measures 0.12 0.16 cm. x 0.14 cm. Right Cephalic Vein at the shoulder measures Left Cephalic Vein at the shoulder measures 0.28 x 0.29 cm. 0.26 x 0.30 cm. Vein wall thickening noted in Cephalic Vein. Vein wall thickening noted in Cephalic Vein. Right basilic vein is compressible. Left basilic vein is compressible. Right Basilic Vein at the origin measures Basilic vein at origin measures 0.55 x 0.58 0.35 x 0.42 cm. cm. Right Basilic Vein mid bicep measures 0.35 x Basilic vein at bicep measures 0.40 x 0.35 0.37 cm. cm. Right Basilic Vein above antecub measures Basilic vein above antecub measures 0.27 x 0.26 x 0.28 cm. 0.28 cm. Brachial artery measures 0.54 x 0.52 cm with Brachial artery measures 0.50 x 0.45 cm with a PSV of 86.7 cm/sec. a PSV of 69.9 cm/sec. Radial artery measures 0.25 x 0.24 cm with a Radial artery measures 0.23 x 0.23 cm with a PSV of 68.3 cm/sec. PSV of 14.9 cm/sec. Heterogenous irregular plaque noted in Radial Heterogenous irregular plaque noted in Radial Artery. Artery. VL/Dialysis Vein Map PRE-OP BILAT Interpretation Summary Patent and compressible bilateral upper extremity cephalic and basilic veins wi th dimensions as noted. Bilateral cephalic veins appear diminutive. Bilateral upper arm basilic veins appear to be adequate. Bilateral radial and brachial arteries appear to have normal flow although ther e is plaque noted in bilateral radial arteries Ordering Physician: Darren Russo Referring Physician: Jossue Yeboah Performed By: Hang Groves RVT ???
== END | disposition home or self-care (01) ==
LOC: CVS 08:11
PROVIDERS: PCP Nurse Practitioner Family; Referring Provider Nurse Practitioner Family; Visit Provider Surgery
DX: Z01.818 Encounter for other preprocedural examination (principal); I12.0 Hypertensive chronic kidney disease with stage 5 chronic kidney disease or end stage renal disease; N18.5 Chronic kidney disease, stage 5
CPT/HCPCS: 93985

== ENCOUNTER → 2022-09-19 | Outpatient (CLI) | payer MEDICARE, OTHER, SELFPAY ==
--- NOTE | 2022-09-20 05:46 | PFTCOMP_ITS ---
COMPLETE PULMONARY FUNCTION TEST INTERPRETATION Brief HPI: Patient is a 72-year-old Black male, currently under the care of myself, who presents to [facility] for complete pulmonary function tests secondary to diagnosis of pleural effusion. Respiratory therapist reports good effort and reproducible results. Interpretation: Forced expiration spirometry shows no large airways obstructive ventilatory defect with an FEV1 of 60% predicted. There is a significant bronchodilator response in FEV1 by strict ATS criteria. Spirograms are of good quality and plateau slowly, indicating slowly emptying areas of the lungs. The respiratory flow volume loop shows decreased expiratory flow rates at high lung volumes consistent with small airways obstruction. Lung volumes by body plethysmography show a decreased total lung capacity at 4.59 L, 59% predicted. FRC and RV are elevated out of proportion. Lung volume measurements are consistent with air-trapping. Diffusion capacity by carbon monoxide is decreased at 36% predicted. The airway resistance is normal. No previous pulmonary function tests were available for review. Impression: Partially reversible moderately severe mixed ventilatory defect with a disproportionate reduction in diffusion capacity
== END | disposition home or self-care (01) ==
LOC: PSN 06:59
PROVIDERS: PCP Nurse Practitioner Family; Referring Provider Internal Medicine Critical Care Medicine; Visit Provider Internal Medicine Critical Care Medicine
DX: J90 Pleural effusion, not elsewhere classified (principal)
CPT/HCPCS: 94060; 94726; 94729

== ENCOUNTER 2022-10-01 11:43 | Day surgery (SDC) | payer MEDICARE, OTHER, SELFPAY ==
[2022-09-27 14:22] LABS: Hematocrit 28.5 % (40-54); Hemoglobin 9.7 g/dL (13.0-16.5); Mean Corpuscular Hgb 29.2 pg (27.0-32.0); Mean Corpuscular Volume 85.8 fL (80-94); Mean Platelet Vol. 9.5 fl (6.2-12.0); Platelet Count 288 K/mm3 (150-450); RBC Distribution Width CV 18.6 % (11.6-14.6); RBC Distribution Width SD 54.9 fl (35.1-43.9); Red Blood Count 3.32 M/mm3 (4.6-6.2); White Blood Count 7.4 K/mm3 (4.4-11.0)
[2022-09-27 14:28] LABS: ALB/GLOB Ratio 0.6 RATIO (0.9-2.4); AST(SGOT) 11 U/L (15-37); Alanine Aminotransfer ALT/SGPT 19 U/L (16-61); Alkaline Phosphatase 95 U/L (45-117); Anion Gap 7 (5-15); BUN 49 mg/dL (7-18); BUN/Creat Ratio 6.7 RATIO (10-20); Calcium,Total 8.7 mg/dL (8.5-10.1); Chloride 103 mmol/L (98-107); Creatinine, Serum 7.26 mg/dL (0.70-1.30); EST Glomerular Filtration Rate 8 mL/min (>60); Est Glom Filt Rate - Afr Amer 10 mL/min (>60); Globulin 4.7 g/dL (2.2-4.2); Glucose 117 mg/dL (74-106); Potassium 3.7 mmol/L (3.5-5.1); Protein, Total 7.7 g/dL (6.4-8.2); Sodium Level 140 mmol/L (136-145)
[2022-10-01] VITALS (8 sets, daily range): BP systolic 114–152; BP diastolic 64–86; PULSE 54–59; RESP 16; TEMP 35.9–36.9; O2SAT 99–100; BMI 22.1
--- NOTE | 2022-10-01 12:14 | PCM.HP.BLA ---
History and Physical Date of Admission: 10/01/22 Visit Reasons: FISTULA Chief Complaint: fistula Is patient in pain?: No Allergies No Known Allergies Allergy (Verified 09/04/22 13:28) Medications finasteride 5 mg tablet 5 mg PO DAILY 05/07/22 [History Confirmed 09/04/22] multivitamin 1 tab PO DAILY 05/07/22 [History Confirmed 09/04/22] tamsulosin 0.4 mg capsule (Flomax) 0.4 mg PO DAILY 05/07/22 [History Confirmed 09/04/22] acetaminophen 325 mg tablet (Tylenol) 650 mg PO Q4H PRN fever or pain 08/28/22 [History Confirmed 09/04/22] acetaminophen 650 mg rectal suppository 650 mg DE Q4H PRN fever or pain 08/28/22 [History Confirmed 09/04/22] aluminum-magnesium hydroxide 225 mg-200 mg/5 mL oral suspension 30 ml PO Q4H PRN GI Distress 08/28/22 [History Confirmed 09/04/22] ascorbate calcium (vitamin C) 500 mg tablet 500 mg PO DAILY 08/28/22 [History Confirmed 09/04/22] atorvastatin 80 mg tablet 80 mg PO DAILY 08/28/22 [History Confirmed 09/04/22] bisacodyl 10 mg rectal suppository 10 mg DE DAILY PRN 08/28/22 [History Confirmed 09/04/22] calcitriol 0.25 mcg capsule 0.25 mcg PO DAILY 08/28/22 [History Confirmed 09/04/22] dextrose 40 % oral gel (Glucose Gel) 10 g PO Q15M PRN 08/28/22 [History Confirmed 09/04/22] glucagon 1 mg solution for injection (Glucagon Emergency Kit) 1 mg subcut Q20M PRN 08/28/22 [History Confirmed 09/04/22] guaifenesin 100 mg/5 mL oral liquid 200 mg PO Q4H PRN 08/28/22 [History Confirmed 09/04/22] honey 80 % topical gel (MediHoney (honey)) 1 applic topical QHS 08/28/22 [History Confirmed 09/04/22] magnesium hydroxide 400 mg/5 mL oral suspension (Milk of Magnesia) 30 ml PO DAILY PRN constipation 08/28/22 [History Confirmed 09/04/22] metoprolol tartrate 25 mg tablet 25 mg PO DAILY 08/28/22 [History Confirmed 09/04/22] mineral oil (Fleet Mineral Oil enema) 118 ml DE DAILY PRN 08/28/22 [History Confirmed 09/04/22] pantoprazole 40 mg tablet,delayed release 40 mg PO DAILY 08/28/22 [History Confirmed 09/04/22] PFSH Medical History CKD (chronic kidney disease), stage IV Hypertension Surgical History H/O knee surgery Social History Smoking Status: Former smoker second hand exposure: Yes HPI HPI HPI: 72-year-old gentleman is being referred by Shavonne Flores RN and Dr. Carrillo [place] [facility] regarding dialysis access. As noted below on September 02, 2022 the patient had bilateral extremity vein mapping. I have personally reviewed and interpreted the studies. Unfortunately the right upper extremity cephalic vein appears to be small with vein wall thickening noted. The right upper arm basilic vein appears to be adequate. The left upper extremity cephalic vein also is small. The left upper extremity basilic vein appears to be adequate. Bilateral brachial arteries appear to be of normal diameter and flow. The patient was to have Dr. Bennie Jorgensen placed tunneled dialysis catheters but he was found to have a left chest empyema and therefore was referred to a tertiary center. Patient is most recently been seen by Dr. Manuelito Marques who has him scheduled for a chest CT on September 19, 2022 in follow-up. The patient claims no fever chills or sweats and that his breathing has improved. He states that he is not currently on any inhalers. The patient is right arm dominant September 02, 2022 Reason For Study: Pre-OP / Renal Failure Right Arm Left Arm Right cephalic vein is compressible. Left cephalic vein is compressible. Right Cephalic Vein at the wrist measures Left Cephalic Vein at the wrist measures 0.17 0.17 x 0.15 cm. x 0.18 cm. Right Cephalic Vein in the forearm measures Left Cephalic Vein in the forearm measures 0.17 x 0.20 cm. 0.14 x 0.16 cm. Right Cephalic Vein below antecub measures Left Cephalic Vein below antecub measures 0.16 x 0.17 cm. 0.12 x 0.16 cm. Right Cephalic Vein above antecub measures Left Cephalic Vein above antecub measures 0.25 x 0.25 cm. 0.16 x 0.16 cm. Right Cephalic Vein mid bicep measures 0.15 x Left Cephalic Vein at mid bicep measures 0.12 0.16 cm. x 0.14 cm. Right Cephalic Vein at the shoulder measures Left Cephalic Vein at the shoulder measures 0.28 x 0.29 cm. 0.26 x 0.30 cm. Vein wall thickening noted in Cephalic Vein. Vein wall thickening noted in Cephalic Vein. Right basilic vein is compressible. Left basilic vein is compressible. Right Basilic Vein at the origin measures Basilic vein at origin measures 0.55 x 0.58 0.35 x 0.42 cm. cm. Right Basilic Vein mid bicep measures 0.35 x Basilic vein at bicep measures 0.40 x 0.35 0.37 cm. cm. Right Basilic Vein above antecub measures Basilic vein above antecub measures 0.27 x 0.26 x 0.28 cm. 0.28 cm. Brachial artery measures 0.54 x 0.52 cm with Brachial artery measures 0.50 x 0.45 cm with a PSV of 86.7 cm/sec. a PSV of 69.9 cm/sec. Radial artery measures 0.25 x 0.24 cm with a Radial artery measures 0.23 x 0.23 cm with a PSV of 68.3 cm/sec. PSV of 14.9 cm/sec. Heterogenous irregular plaque noted in Radial Heterogenous irregular plaque noted in Radial Artery. Artery. VL/Dialysis Vein Map PRE-OP BILAT Interpretation Summary Patent and compressible bilateral upper extremity cephalic and basilic veins with dimensions as noted. Bilateral cephalic veins appear diminutive. Bilateral upper arm basilic veins appear to be adequate. Bilateral radial and brachial arteries appear to have normal flow although there is plaque noted in bilateral radial arteries Ordering Physician: Darren Russo Referring Physician: Jossue Yebaoh Performed By: Hang Groves Fani General General: Yes weight change and fatigue; No appetite, colon cancer, breast cancer or weakness HEENT HEENT: No difficulty swallowing, eye injury, eye surgery, swollen glands or hoarseness Endo Endocrine: No thyroid disease, diabetes mellitus, thyroid cancer, Hair loss, heat intolerance or cold intolerance Skin Skin: No rash or changing moles Musc Musculoskeletal: No back problems, arthritis, rheumatoid arthritis, gout or joint pain Cardio Cardiovascular: Yes high blood pressure; No murmur, pacemaker, heart disease, atrial fibrillation, heart attack, heart stent, palpitations, shortness of breat with exertion or chest pain Psych Psychiatric: No depression, anxiety or hearing voices Resp Respiratory: No shortness of breath, Yes sleep apnea, No cough, No COPD, No asthma, No emphysema and No wheezing Gastro Gastrointestinal: No abdominal pain, No nausea or vomiting, No diarrhea, No constipation, No blood in stool, No acid reflux, No hemorrhoids, No ulcers, No gallbladder problem and No black,tarry stools Darius Hematologic: No blood thinners, No blood disorders, No bleeding, Yes anemia and No blood clots Neuro Neurologic: No system reviewed and no additional complaints, except as documented, No as per HPI, No abnormal gait, No abnormal hearing, No abnormal movements, No abnormal speech, No behavioral changes, No burning sensations, No confusion, No convulsions, No disequilibrium, No dizziness, No localized weakness, No frequent falls, No headache(s), No lack of coordination, No loss of vision, No memory loss, No numbness, No other visual disturbances, No radicular pain, No restless legs, No sensory deficit, No syncope, No tingling, No tremor(s), No weakness and No other Exam Const General: cooperative, comfortable and no acute distress Nutritional Appearance: underweight Other: Patient demonstrates evidence of significant body weight/muscle mass loss HENMT Head: normal to inspection Eyes General: appearance normal, both eyes and all related structures Neck Neck: normal visual inspection Chest Other: Increased anterior posterior diameter Resp Other: Diminished respiratory excursion Generally clear Cardio Rate: regular rate Rhythm: regular rhythm GI Palpation: soft and no hepatosplenomegaly Musc Cervical Spine: normal cervical lordosis Skin General: no rashes or lesions noted Neuro General: patient alert, patient awake and patient oriented x3 Extrem General: no calf tenderness Psych Appearance: grossly normal Assessment and Plan Assessment and Plan (1) CKD stage 5 secondary to hypertension: Status: Chronic Plan: I recommended the patient stage I left upper extremity upper arm brachial to basilic arteriovenous hemodialysis fistula creation and I described the technique, benefit, risk, alternatives. He and his have had an opportunity to ask and have questions answered. They are both aware that a stage II transposition will be required in the future. The patient claims he has no intolerance to aspirin therapy. He denies any history of peptic ulcer disease. We will initiate him on 81 mg aspirin therapy. Finally the patient is still smoking cigarettes. I have prescribed him that this significantly affects our ability to create and maintain a fistula for dialysis and I have asked him to strongly consider stopping completely. He has had an opportunity to ask and have questions answered. I appreciate the opportunity of assisting with the surgical care and we will schedule and proceed at his discretion. Copy: Dr. Carrillo and Po Yeboah, CMP Darren Russo M.D., F.A.C.S I have examined the patient and the H&P has been reviewed. There are no clinical changes since date of exam. Darren Russo M.D., F.A.C.S.
--- NOTE | 2022-10-01 12:15 | DCINST_ITS ---
Discharge Instructions Procedure Fistula Diet Discharge Diet: Renal Diet Activity Discharge Activity: May Not Drive (for 2-3 days or while taking narcotic pain medications.), May Shower and May Take a Tub Bath (in 5 days.) Lifting Restrictions: 5 pounds Keep extremity elevated above heart level: - (Keep arm elevated above the heart level for 3 days.) Dressing / Incision Call your doctor if your incision/area has: Continuous Slow Oozing, Sudden Increased Bleeding (apply pressure and call your doctor.), Increased Pain/ Swelling, Increased Redness and Foul Smelling Discharge Call your doctor if you observe: Fever of 101 or Higher Suture Line Care: Avoid Pulling/Pushing and Avoid Pinching/Bending Cleanse incision/area with: Keep Dressing Clean & Dry Additional Dressing/Incision Instructions:: Change or remove dressing in one day. May protect with a gauze bandaid. Follow Up Care Please Follow Up With: Darren Russo MD When: Call [phone] to make an appointment for suture removal and follow up in 1 week. Test Results: Test results from this visit will be discussed in further detail at your follow- up appointment, if applicable. Discharge Plan Admission Attending Provider: Darren Russo Primary Care Provider: Jossue Yeboah NP Discharge Orders/Prescriptions Prescriptions: No Action atorvastatin 80 mg tablet 80 mg PO DAILY pantoprazole 40 mg tablet,delayed release (DR/EC) 40 mg PO DAILY metoprolol tartrate 25 mg tablet 12.5 mg PO DAILY ascorbate calcium (vitamin C) 500 mg tablet 500 mg PO DAILY multivitamin Tablet 1 tab PO DAILY tamsulosin [Flomax] 0.4 mg Capsule 0.4 mg PO DAILY finasteride 5 mg Tablet 5 mg PO DAILY cholecalciferol (vitamin D3) 25 mcg (1,000 unit) capsule 25 mcg PO DAILY aspirin 81 mg capsule 81 mg PO DAILY Referrals / Follow Up: Jossue Yeboah NP, FITTING ROOM MAINTENANCE MECHANIC-C [Primary Care Provider] - Disposition Disposition (needs filled in before D/C Order can be placed): Home, Self Care
[2022-10-01] MEDS: Heparin Injection (Vial) 5,000 UNIT/ML VIAL 5000 UNIT (13:18)
[2022-10-01] MEDS: Lidocaine 1% (20 ml mdv) 20 ML Vial (13:18)
[2022-10-01] MEDS: Bupivacaine Mpf 0.5% 30 ML VIAL (13:18)
--- NOTE | 2022-10-01 14:09 | OP.PCM_ITS ---
Report of Operation Date of Procedure: 10/01/22 Pre-Operative Diagnosis: Page 5 chronic renal insufficiency Post-Operative Diagnosis: Same Surgery/Procedure Performed:: Stage I left upper extremity basilic vein to brachial artery arteriovenous hemodialysis fistula creation Description of Surgical Findings:: Timeout informed consent was obtained. 72-year-old gentleman was taken to the operating placed on the table underwent monitored anesthesia care. Clean procedure no antibiotics required. The left upper extremity was sterilely prepped and draped. Ultrasound mapping of the branch of the basilic vein had been performed. 1% lidocaine mixed 50-50 with 0.5% Marcaine was used a local anesthetic. A total of 5 cc was used. A oblique incision was made in the left antecubital space sharp and blunt dissection was used to identify branch of the basilic vein. Then circumferential dissection was performed of the brachial artery. The patient received 7000 units of heparin. The vein was secured distally with a Hemoclip. The vein was spatulated I used 3 mm Dario dilator dilatation. Vein was spatulated. End-to-side venous to arterial anastomosis created with a running 7-0 Prolene. Prior to completion there appeared to be wi rubens patent anastomosis. Flow was resumed Doppler was used demonstrated that there was excellent flow within the basilic vein. The hand was viable and there was good flow at the radial artery level. The wound was closed with deep sutures of interrupted 3-0 Vicryl and then a running subicular 4 Monocryl. Steri-Strips Telfa tape dressings applied. Sponge and instrument and needle counts were reported to surgically correct. Specimens none. Drains none. Blood loss minimal The patient was taken to recovery area in satisfactory addition without apparent complication Darren Russo M.D., F.A.C.S. Surgeon: Darren Russo Type of Anesthesia: Local MAC Anesthesiologist: Celso Khanna
== END 2022-10-01 15:47 | disposition home or self-care (01) ==
LOC: SDC 11:43 → AC 11:44
PROVIDERS: PCP Nurse Practitioner Family; Referring Provider Surgery; Visit Provider Surgery
PROC: (CPT 36821; principal; 2022-10-01 13:30)
DX: I12.0 Hypertensive chronic kidney disease with stage 5 chronic kidney disease or end stage renal disease (principal); N18.5 Chronic kidney disease, stage 5; E78.00 Pure hypercholesterolemia, unspecified; K21.9 Gastro-esophageal reflux disease without esophagitis; Z87.891 Personal history of nicotine dependence; Z79.82 Long term (current) use of aspirin; Z79.899 Other long term (current) drug therapy
CPT/HCPCS: 36821; 01844; 80053; 85027; A4648; J7040; J2405

== ENCOUNTER 2022-12-03 05:01 | Day surgery (SDC) | payer MEDICARE, OTHER, SELFPAY ==
--- NOTE | 2022-12-03 05:42 | PCM.HP.BLA ---
History and Physical Date of Admission: 12/03/22 nterpreter Required: No Is patient in pain?: No Allergies No Known Allergies Allergy (Verified 11/20/22 14:42) Medications finasteride 5 mg tablet 5 mg PO DAILY 05/07/22 [History Confirmed 11/20/22] multivitamin 1 tab PO DAILY 05/07/22 [History Confirmed 11/20/22] tamsulosin 0.4 mg capsule (Flomax) 0.4 mg PO DAILY 05/07/22 [History Confirmed 11/20/22] ascorbate calcium (vitamin C) 500 mg tablet 500 mg PO DAILY 08/28/22 [History Confirmed 11/20/22] atorvastatin 80 mg tablet 80 mg PO DAILY 08/28/22 [History Confirmed 11/20/22] metoprolol tartrate 25 mg tablet 12.5 mg PO DAILY 08/28/22 [History Confirmed 11/20/22] pantoprazole 40 mg tablet,delayed release 40 mg PO DAILY 08/28/22 [History Confirmed 11/20/22] aspirin 81 mg capsule 81 mg PO DAILY 09/26/22 [History Confirmed 11/20/22] cholecalciferol (vitamin D3) 25 mcg (1,000 unit) capsule 25 mcg PO DAILY 09/26/22 [History Confirmed 11/20/22] hydrocodone-acetaminophen 5-325mg 5mg-325mg 1 tab PO Q8H PRN pain 2 days #5 tabs 10/01/22 [Rx Confirmed 11/20/22] albuterol sulfate 90 mcg/actuation aerosol inhaler (Ventolin HFA) 2 puff inhalation Q4H PRN shortness of breath or wheezing #18 grams 10/10/22 [Rx Confirmed 11/20/22] PFSH Medical History Alcohol use Chronic constipation CKD (chronic kidney disease), stage IV CPAP (continuous positive airway pressure) dependence Dietary restriction Gastric reflux High cholesterol History of renal dialysis Hypertension Leg cramps Marijuana use Polio Smoker Walker as ambulation aid Surgical History H/O knee surgery Hx of surgical procedure S/P arteriovenous (AV) fistula creation Social History Smoking Status: Current every day smoker tobacco type: cigarettes second hand exposure: Yes HPI HPI Surgical H&P: Yes HPI: Patient is a 72 y/o M I am seeing for an update history and physical for an upcoming stage II transposition left upper extremity brachiobasilic AV fistula creation. Patient is s/p stage I left upper extremity brachiobasilic AV fistula creation by Dr. Russo on 10/01/22. Patient notes intermittent discomfort at the fistula site, which resolves within seconds. He denies numbness/tingling of the hand or fingertips. Patient denies any recent hospitalizations. His last visit with our office was on 10/30/22. Patient has been recovering from stage I very well. Patient is currently on dialysis via right tunneled chest catheters on , and . Dr. Carrillo is his metal bonding crib attendant. ROS General General: Yes weight change and fatigue; No appetite, colon cancer, breast cancer or weakness HEENT HEENT: No difficulty swallowing, eye injury, eye surgery, swollen glands or hoarseness Endo Endocrine: No thyroid disease, diabetes mellitus, thyroid cancer, Hair loss, heat intolerance or cold intolerance Skin Skin: No rash or changing moles Musc Musculoskeletal: No back problems, arthritis, rheumatoid arthritis, gout or joint pain Cardio Cardiovascular: Yes high blood pressure; No murmur, pacemaker, heart disease, atrial fibrillation, heart attack, heart stent, palpitations, shortness of breat with exertion or chest pain Psych Psychiatric: No depression, anxiety or hearing voices Resp Respiratory: No shortness of breath, Yes sleep apnea, No cough, No COPD, No asthma, No emphysema and No wheezing Gastro Gastrointestinal: No abdominal pain, No nausea or vomiting, No diarrhea, No constipation, No blood in stool, No acid reflux, No hemorrhoids, No ulcers, No gallbladder problem and No black,tarry stools Darius Hematologic: No blood thinners, No blood disorders, No bleeding, Yes anemia and No blood clots Neuro Neurologic: No system reviewed and no additional complaints, except as documented, No as per HPI, No abnormal gait, No abnormal hearing, No abnormal movements, No abnormal speech, No behavioral changes, No burning sensations, No confusion, No convulsions, No disequilibrium, No dizziness, No localized weakness, No frequent falls, No headache(s), No lack of coordination, No loss of vision, No memory loss, No numbness, No other visual disturbances, No radicular pain, No restless legs, No sensory deficit, No syncope, No tingling, No tremor(s), No weakness and No other Exam Const General: cooperative, healthy appearing, comfortable and no acute distress [facility] Head: normal to inspection Eyes General: appearance normal, both eyes and all related structures Neck Neck: normal visual inspection Neck mass: No Chest Other: Right chest- tunneled dialysis catheter Resp Effort & Inspection: normal respiratory effort Auscultation: clear to auscultation bilaterally Cardio Rate: regular rate Rhythm: regular rhythm GI Inspection: normal to inspection Palpation: soft Auscultation: normal bowel sounds Musc Cervical Spine: normal cervical lordosis Skin General: no rashes or lesions noted Neuro General: no focal motor deficits and CN's II-XI intact bilaterally Extrem General: normal to inspection Other: Left upper extremity AV fistula- god pulse, bruit and thrill. Incision completely healed. Psych Appearance: grossly normal Affect: normal affect Assessment and Plan Assessment and Plan (1) CKD stage 5 secondary to hypertension: Status: Chronic Plan: Dr. Russo will plan to perform stage II transposition left upper extremity brachiobasilic arteriovenous fistula creation. Procedure details, risks and benefits have been explained. Patient and his significant other have had the opportunity to ask and have questions answered. Patient verbally understands and agrees with the plan. He may continue his aspirin. I have examined the patient and the H&P has been reviewed. There are no clinical changes since date of exam. He has a good thrill in his left upper arm. He has a solid left radial 2-3+ pulse. Darren Russo M.D., F.A.C.S.
[2022-12-03] MEDS: 0.9% Normal Saline (500mL Bag) 500 ML 15 ML IV (05:50)
[2022-12-03 05:55] VITALS: BP 159/77; PULSE 70; RESP 16; TEMP 37.3; O2SAT 100; BMI 22.2
--- NOTE | 2022-12-03 06:06 | DCINST_ITS ---
Discharge Instructions Procedure Fistula Diet Discharge Diet: Renal Diet Activity Discharge Activity: May Not Drive (for 2-3 days or while taking narcotic pain medications.), May Shower and May Take a Tub Bath (in 5 days.) Lifting Restrictions: 5 pounds Keep extremity elevated above heart level: - (Keep arm elevated above the heart level for 3 days.) Dressing / Incision Call your doctor if your incision/area has: Continuous Slow Oozing, Sudden Increased Bleeding (apply pressure and call your doctor.), Increased Pain/ Swelling, Increased Redness and Foul Smelling Discharge Call your doctor if you observe: Fever of 101 or Higher Suture Line Care: Avoid Pulling/Pushing and Avoid Pinching/Bending Cleanse incision/area with: Keep Dressing Clean & Dry Additional Dressing/Incision Instructions:: Elevate your left upper extremity for comfort. You may leave the elastic bandage on for 2 to 3 days and then you may remove that. Leave your Steri-Strips on for 1 week. Follow Up Care Please Follow Up With: Darren Russo MD When: Call [phone] to make an appointment for suture removal and follow up in 1 week. Test Results: Test results from this visit will be discussed in further detail at your follow- up appointment, if applicable. Discharge Plan Admission Attending Provider: Darren Russo Primary Care Provider: Jossue Yeboah NP Discharge Orders/Prescriptions Prescriptions: No Action atorvastatin 80 mg tablet 80 mg PO DAILY pantoprazole 40 mg tablet,delayed release (DR/EC) 40 mg PO DAILY metoprolol tartrate 25 mg tablet 12.5 mg PO DAILY ascorbate calcium (vitamin C) 500 mg tablet 500 mg PO DAILY albuterol sulfate [Ventolin HFA] 90 mcg/actuation HFA aerosol inhaler 2 puff inhalation Q4H PRN (Reason: shortness of breath or wheezing) Qty: 18 6RF multivitamin Tablet 1 tab PO DAILY tamsulosin [Flomax] 0.4 mg Capsule 0.4 mg PO QHS finasteride 5 mg Tablet 5 mg PO DAILY cholecalciferol (vitamin D3) 25 mcg (1,000 unit) capsule 25 mcg PO DAILY aspirin 81 mg capsule 81 mg PO DAILY Other Ambulatory Orders: Basic Metabolic Profile (BMP) (Routine) Timeframe: 20221203 Facility: [facility] - Location: Laboratory Ordered By: Dr. Darren Russo CBC-Complete Blood Cnt No Diff (Routine) Timeframe: 20221203 Facility: [facility] - Location: Laboratory Ordered By: Dr. Darren Russo Referrals / Follow Up: Jossue Yeboah FORECLOSURE SPECIALIST, FORECLOSURE SPECIALIST-C [Primary Care Provider] - Disposition Disposition (needs filled in before D/C Order can be placed): Home, Self Care
[2022-12-03] MEDS: Cefazolin 2 GM in 0.9% Normal Saline (100mL Bag) 100 ML IV (07:26)
[2022-12-03] MEDS: Bupivacaine 0.5% PF 10 ML VIAL (07:52)
[2022-12-03] MEDS: Heparin Injection (Vial) 5,000 UNIT/ML VIAL 5000 UNIT (07:52)
[2022-12-03] MEDS: Lidocaine 1% (20 ml mdv) 20 ML Vial (07:52)
--- NOTE | 2022-12-03 09:42 | OP.PCM_ITS ---
Report of Operation Date of Procedure: 12/03/22 Pre-Operative Diagnosis: Stage V chronic renal failure on hemodialysis Post-Operative Diagnosis: Same Surgery/Procedure Performed:: Stage II transposition left upper arm basilic vein to brachial artery arteriovenous hemodialysis fistula creation Description of Surgical Findings:: Timeout informed consent was obtained. 72-year-old gentleman was taken to the operating room placed supine on the table underwent general anesthesia Ancef 2 g were given intravenously clean procedure the left extremity was sterilely prepped and draped. 30 cc of 0.5% Marcaine was mixed with 20 cc 1% lidocaine w as used as a local anesthetic. Throughout the procedure total 50 cc was used. Ultrasound was used to map the course of the left upper arm basilic vein. Local was instilled. A longitudinal incision was serially made up the volar aspect of the left upper arm tedious sharp and blunt dissection was required to dissect free the basilic vein. Side branches were secured with interrupted 4-0 Vicryl l igatures or hemoclips. Small sidebranch secured with a 7-0 Prolene suture. Dissection was formed up to the axillary area but good length was felt to been achieved. Then after measuring length in the distal upper arm dissection performed to identify the brachial artery and this was dissected free. A subcutaneous tunnel was then tunneled with a 6 mm [place] tunneler from the brachial artery to the proximal upper arm. The patient received 8000 units of heparin. After adequate circulation time the vein was ligated distally with a 4-0 Vicryl ligature. It was placed through the tunneler the vein was carefully spatulated peripheral vascular clamps were placed on the brachial artery and 11 blade was used to make an arteriotomy which was extended with Hammer scissors a end-to-side venous to arterial anastomosis was created with a running 7-0 Prolene. Prior to completion there appeared to be good antegrade and retrograde flow. Anastomosis was completed and immediately was a palpable thrill. Vein appeared to be in good position. Some further hemostasis was obtained with a 3- 0 Vicryl suture ligature proximally in the upper arm. The patient received 30 mg of protamine. Floseal was used in the proximal upper arm to the extent of the wall tissue and dissection. The subdermal tissues were approximated so as to approximate the space with interrupted 3-0 Vicryl sutures. Skin edges were then approximated running subicular 4-0 Monocryl. Steri-Strips Telfa soft roll Casimiro wrap was applied. Sponge and instrument and needle counts were reported to the surgeon to be correct. Specimens none. Drains none. Blood loss 100 cc. He was taken to the recovery room in satisfactory addition without apparent complication Darren Russo M.D., F.A.C.S. Surgeon: Darren Russo Type of Anesthesia: General and Local Anesthesiologist: Celso Khanna
[2022-12-03 10:10] VITALS: BP 127/67; BP 159/77; PULSE 82; RESP 16; TEMP 36.6; O2SAT 100
[2022-12-03 10:15] VITALS: BP 116/68; BP 159/77; PULSE 81; RESP 16; O2SAT 99
[2022-12-03 10:30] VITALS: BP 111/61; BP 159/77; PULSE 75; RESP 16; O2SAT 98
[2022-12-03 10:46] VITALS: BP 112/54; BP 159/77; PULSE 75; RESP 18; TEMP 37.1; O2SAT 98
[2022-12-03 11:18] VITALS: BP 114/68; BP 159/77; PULSE 74; RESP 16; TEMP 36.4; O2SAT 98
== END 2022-12-03 11:21 | disposition home or self-care (01) ==
LOC: SDC 05:05 → AC 05:06
PROVIDERS: PCP Nurse Practitioner Family; Referring Provider Surgery; Visit Provider Surgery
PROC: (CPT 36819; principal; 2022-12-03 07:15)
DX: I12.0 Hypertensive chronic kidney disease with stage 5 chronic kidney disease or end stage renal disease (principal); Z99.2 Dependence on renal dialysis; N18.5 Chronic kidney disease, stage 5; E78.00 Pure hypercholesterolemia, unspecified; K21.9 Gastro-esophageal reflux disease without esophagitis; F17.210 Nicotine dependence, cigarettes, uncomplicated; Z79.82 Long term (current) use of aspirin; Z79.899 Other long term (current) drug therapy
CPT/HCPCS: 36819; 01844; A4648; J2405

== ENCOUNTER 2023-05-12 11:58 | Emergency (ER) | payer MEDICARE, OTHER, SELFPAY ==
[2023-05-12 11:59] VITALS: BP 129/62; PULSE 71; RESP 16; TEMP 36.4; O2SAT 100; BMI 25.0
--- NOTE | 2023-05-12 13:11 | EX.ED.DYSGE1 ---
HPI History of Present Illness Chief Complaint: Wound Informant: patient and EMS Narrative Narrative: 73-year-old male presenting to the emergency room with bleeding from AV fistula. Patient has been receiving dialysis for approximately 1 and half years. He states that today he had not been able to stop the bleeding after removing the needle from a left upper arm fistula. He denies any lightheadedness palpitations PFSH PFSH Medical History Alcohol use Chronic constipation CKD (chronic kidney disease), stage IV CPAP (continuous positive airway pressure) dependence Dietary restriction Gastric reflux High cholesterol History of renal dialysis Hypertension Leg cramps Marijuana use Polio Smoker Walker as ambulation aid Home Medications finasteride 5 mg tablet 5 mg PO DAILY 05/07/22 [History Last Taken 06/10/22] multivitamin 1 tab PO DAILY 05/07/22 [History Last Taken Unknown] tamsulosin 0.4 mg capsule (Flomax) 0.4 mg PO QHS 05/07/22 [History Last Taken 06/10/22] ascorbate calcium (vitamin C) 500 mg tablet 500 mg PO DAILY 08/28/22 [History Last Taken Unknown] atorvastatin 80 mg tablet 80 mg PO DAILY 08/28/22 [History Last Taken Unknown] metoprolol tartrate 25 mg tablet 12.5 mg PO DAILY 08/28/22 [History Last Taken 12/03/22 04:30] pantoprazole 40 mg tablet,delayed release 40 mg PO DAILY 08/28/22 [History Last Taken 12/03/22 04:30] aspirin 81 mg capsule 81 mg PO DAILY 09/26/22 [History Last Taken 11/28/22] cholecalciferol (vitamin D3) 25 mcg (1,000 unit) capsule 25 mcg PO DAILY 09/26/22 [History Last Taken Unknown] albuterol sulfate 90 mcg/actuation aerosol inhaler (Ventolin HFA) 2 puff inhalation Q4H PRN shortness of breath or wheezing #18 grams 10/10/22 [Rx Last Taken Unknown] hydrocodone-acetaminophen 5-325mg 5mg-325mg 1 tab PO Q8H PRN pain 2 days #5 tabs 12/03/22 [Rx Last Taken Unknown] Allergy/AdvReac Type Severity Reaction Status Date / Time No Known Allergies Allergy Verified 05/12/23 12:02 Surgical History H/O knee surgery Hx of surgical procedure S/P arteriovenous (AV) fistula creation Social History Smoking Status: Current every day smoker tobacco type: cigarettes second hand exposure: Yes ROS ROS ED Constitutional Constitutional ED: Denies chills, fever(s) or weight loss Eyes Eyes: Denies change in vision or diplopia ENT ENT ED: Denies ear pain, rhinorrhea or sore throat Cardiovascular Cardiovascular: Denies chest pain, orthopnea, palpitations or racing heartbeat Respiratory/Chest Respiratory/Chest: Denies cough, dyspnea or orthopnea Gastrointestinal Gastrointestinal: Denies abdominal pain, diarrhea, nausea or vomiting Genitourinary Genitourinary ED: Denies dysuria, hematuria or urinary frequency Musculoskeletal Musculoskeletal: Reports other Details: See history of present illness ; Denies arthralgias or myalgias Integumentary Denies abscess or rash Neurologic Neurologic: Denies headache(s) or weakness Psychiatric Psychiatric: Denies anxiety, depression, suicidal ideation or suicidal thoughts Endocrine Endocrinology: Denies polydipsia, polyphagia or polyuria Allergic/Immunologic Allergic/Immunologic ED: Denies mouth swelling, tongue swelling or urticaria EXAM Physical Exam Const Vital Signs: 05/12/23 11:59 Temperature 97.5 F L Temperature Source Temporal Pulse Rate 71 Respiratory Rate 16 Blood Pressure 129/62 H Blood Pressure Mean 84 Pulse Ox 100 Oxygen Delivery Method Room Air Positive well nourished and well developed General Appearance ED: well developed HEENT Reports normocephalic, head/scalp atraumatic and moist mucous membranes Eyes PERRL and EOMs intact bilaterally Neck no lymphadenopathy, supple and no JVD Resp normal respiratory effort and clear to auscultation bilaterally Cardio regular rate, regular rhythm and no murmurs GI normal to inspection, nondistended, normoactive bowel sounds and non-tender Palpation: soft Back/Spine no CVA tenderness and normal ROM Extremity Extremity Narrative: Left upper arm shows an AV fistula with positive thrill. Nursing has previously removed the remaining dialysis needle and held slight pressure and now currently only has dressing in place. Distal to the AV fistula of the left arm the hand appears normal. It is warm. Normal capillary refill. Normal movement. General Extremety ED: Negative for edema General Extremity: Negative for edema Neuro oriented x3 and CN's II-XII intact bilaterally Sensorium / Orientation: alert Motor Exam: strength 5/5 throughout Psych mental status grossly normal Mood & Affect: Negative for depressed or tearful Skin no rashes or lesions noted and no wounds MDM MDM MDM Narrative Medical decision making narrative: There is been no further bleeding from the AV fistula site. Patient does not appear to be hypovolemic from the bleeding. I do not believe we need to check an H&H. No hypotension no tachycardia. The fistula does not appear clotted as there is a positive thrill. He is not complaining of any distal symptoms. Patient will be discharged. Following up with his doctors as needed History & Record Review Discussion w/independent historian: Patient Discharge Plan Triage Chief Complaint: Wound ED Provider: Rizwan Leigh Dx/Rx/DC Orders Clinical Impression: Hemorrhage of arteriovenous fistula, Chronic kidney disease (CKD) Instructions: ED Hemodialysis Access Bleeding Prescriptions: No Action atorvastatin 80 mg tablet 80 mg PO DAILY pantoprazole 40 mg tablet,delayed release (DR/EC) 40 mg PO DAILY metoprolol tartrate 25 mg tablet 12.5 mg PO DAILY ascorbate calcium (vitamin C) 500 mg tablet 500 mg PO DAILY albuterol sulfate [Ventolin HFA] 90 mcg/actuation HFA aerosol inhaler 2 puff inhalation Q4H PRN (Reason: shortness of breath or wheezing) Qty: 18 6RF multivitamin Tablet 1 tab PO DAILY tamsulosin [Flomax] 0.4 mg Capsule 0.4 mg PO QHS finasteride 5 mg Tablet 5 mg PO DAILY cholecalciferol (vitamin D3) 25 mcg (1,000 unit) capsule 25 mcg PO DAILY aspirin 81 mg capsule 81 mg PO DAILY hydrocodone-acetaminophen 5-325 mg tablet 1 tab PO Q8H PRN (Reason: pain) 2 Days Qty: 5 0RF Primary Care Provider: Jossue Yeboah NP Referrals: Jossue Yeboah NP, FISH CUTTING MACHINE OPERATOR-C [Primary Care Provider] - As Needed Disposition Disposition: Home, Self Care
[2023-05-12 13:38] VITALS: BP 131/74; PULSE 73; RESP 14; TEMP 36.6; O2SAT 99
--- NOTE | 2023-05-12 13:39 | ED.RN ---
No signs of bleeding from fistula, dressings remain clean, dry and intact at discharge. Report given to Danielle lim.
== END 2023-05-12 13:40 | disposition home or self-care (01) ==
LOC: ED 13:16
PROVIDERS: Emergency Provider Emergency Medicine; PCP Nurse Practitioner Family; Visit Provider Emergency Medicine
DX: T82.838A Hemorrhage due to vascular prosthetic devices, implants and grafts, initial encounter (principal); N18.4 Chronic kidney disease, stage 4 (severe); F17.210 Nicotine dependence, cigarettes, uncomplicated; Z99.2 Dependence on renal dialysis; X58.XXXA Exposure to other specified factors, initial encounter
CPT/HCPCS: 99282

== ENCOUNTER 2024-01-21 12:08 | Emergency (ER) | payer MEDICARE, OTHER, SELFPAY ==
[2024-01-21 12:08] VITALS: BP 127/67; PULSE 84; RESP 16; TEMP 36.2; O2SAT 98; BMI 24.3
--- NOTE | 2024-01-21 13:36 | EX.ED.GENINJ ---
HPI History of Present Illness Chief Complaint: Other, Pain/Inj Narrative Narrative: Chief complaint and HPI: Bleeding fistula. 73-year-old male with history of CKD on dialysis presents for evaluation of bleeding fistula. Patient states that he had just finished dialysis and was removed from the machine when he developed bleeding at his fistula site. He states that the bleeding continued for about an hour and a half before EMS was called. He states on EMS arrival the bleeding had stopped. EMS dressed the wound and brought the patient to the emergency department. Patient denies blood thinner use. He denies any lightheadedness, nausea, vomiting, headache, syncope from the bleeding. Patient currently asymptomatic. Review of systems: See HPI Medications: As listed on the chart Allergies: As listed on the chart PFSH: Per chart Vital signs: As listed on the chart. Reviewed. Physical exam: Gen: A&O x3, NAD Head: Normocephalic, atraumatic Eyes: No sclera icterus, conjunctiva clear ENT: Moist mucous membranes Neck: Trachea midline, No JVD CV: RRR, no murmurs Resp: Lungs CTA BL, no w/r/c Musc: Moves all extremities, dressing applied to left upper extremity fistula-dressing was removed and fistula site was examined, patient has 2 puncture sites where his fistula was accessed. No active bleeding. Good thrill. Skin: Warm, dry Neuro: Alert, oriented, grossly intact, sensation intact Psych: Cooperative, appropriate mood and affect [facility] Medical History (Updated 01/21/24 @ 13:[address] Jesus Alberto Kelley, DO) History of Clostridium difficile infection Marijuana use Alcohol use Walker as ambulation aid History of renal dialysis High cholesterol Dietary restriction Chronic constipation Gastric reflux Smoker Leg cramps CPAP (continuous positive airway pressure) dependence Polio CKD (chronic kidney disease), stage IV Hypertension Home Medications ?Medication ?Instructions ?Recorded ?Last Taken ?Type finasteride 5 mg tablet 5 mg PO DAILY 05/07/22 06/10/22 History multivitamin 1 tab PO DAILY 05/07/22 Unknown History tamsulosin 0.4 mg capsule (Flomax) 0.4 mg PO QHS 05/07/22 06/10/22 History ascorbate calcium (vitamin C) 500 500 mg PO DAILY 08/28/22 Unknown History mg tablet atorvastatin 80 mg tablet 80 mg PO DAILY 08/28/22 Unknown History metoprolol tartrate 25 mg tablet 12.5 mg PO DAILY 08/28/22 12/03/22 04:30 History pantoprazole 40 mg tablet,delayed 40 mg PO DAILY 08/28/22 12/03/22 04:30 History release aspirin 81 mg capsule 81 mg PO DAILY 09/26/22 11/28/22 History cholecalciferol (vitamin D3) 25 25 mcg PO DAILY 09/26/22 Unknown History mcg (1,000 unit) capsule albuterol sulfate 90 mcg/actuation 2 puff inhalation Q4H PRN 10/10/22 Unknown Rx aerosol inhaler (Ventolin HFA) shortness of breath or wheezing #18 grams Allergy/AdvReac Type Severity Reaction Status Date / Time No Known Allergies Allergy Verified 05/14/23 13:09 Surgical History S/P arteriovenous (AV) fistula creation Hx of surgical procedure H/O knee surgery Social History Smoking Status: Current every day smoker tobacco type: cigarettes second hand exposure: Yes EXAM Physical Exam Const Vital Signs: 01/21/24 12:08 01/21/24 12:17 01/21/24 13:47 Temperature 97.2 F L 97.5 F L Temperature Source Oral Pulse Rate 84 72 Respiratory Rate 16 15 Respiratory Effort Normal Non-Labored Respiratory Pattern Normal Blood Pressure 127/67 H 139/76 H Blood Pressure Mean 87 97 Pulse Ox 98 99 Oxygen Delivery Method Room Air MDM MDM MDM Narrative Medical decision making narrative: 73-year-old male with history of CKD on dialysis presents for evaluation of bleeding fistula. Fistula bled after access for dialysis. Bleeding stopped prior to arrival. Fistula examined without any active bleeding. See physical exam. Good thrill. Patient asymptomatic. No laboratory or further workup needed. Site was redressed. Monitor for rebleeding at home. Return precautions explained. Patient stable to discharge home. Impression: 1. Left upper extremity fistula bleeding, resolved 2. History of CKD on dialysis Discharge Plan Triage Chief Complaint: Other, Pain/Inj ED Provider: Jesus Alberto Kelley Dx/Rx/DC Orders Clinical Impression: Bleeding Instructions: First Aid: Bleeding Prescriptions: No Action atorvastatin 80 mg tablet 80 mg PO DAILY pantoprazole 40 mg tablet,delayed release (DR/EC) 40 mg PO DAILY metoprolol tartrate 25 mg tablet 12.5 mg PO DAILY ascorbate calcium (vitamin C) 500 mg tablet 500 mg PO DAILY albuterol sulfate [Ventolin HFA] 90 mcg/actuation HFA aerosol inhaler 2 puff inhalation Q4H PRN (Reason: shortness of breath or wheezing) Qty: 18 6RF multivitamin Tablet 1 tab PO DAILY tamsulosin [Flomax] 0.4 mg Capsule 0.4 mg PO QHS finasteride 5 mg Tablet 5 mg PO DAILY cholecalciferol (vitamin D3) 25 mcg (1,000 unit) capsule 25 mcg PO DAILY aspirin 81 mg capsule 81 mg PO DAILY Primary Care Provider: Jossue Yeboah NP Referrals: Jossue Yeboah NP, [employer] [Primary Care Provider] - 3-5 Days Activity Restrictions/Additional Instructions: Return back to the ED if symptoms change or worsen Print Language: American Disposition Disposition: Home, Self Care Discharge Date/Time: 01/21/24 13:53
[2024-01-21 13:47] VITALS: BP 139/76; PULSE 72; RESP 15; TEMP 36.4; O2SAT 99
== END 2024-01-21 13:53 | disposition home or self-care (01) ==
PROVIDERS: Emergency Provider Surgery; PCP Nurse Practitioner Family; Visit Provider Surgery
DX: T82.838A Hemorrhage due to vascular prosthetic devices, implants and grafts, initial encounter (principal); N18.4 Chronic kidney disease, stage 4 (severe); Y84.1 Kidney dialysis as the cause of abnormal reaction of the patient, or of later complication, without mention of misadventure at the time of the procedure; K21.9 Gastro-esophageal reflux disease without esophagitis; I12.9 Hypertensive chronic kidney disease with stage 1 through stage 4 chronic kidney disease, or unspecified chronic kidney disease; E78.00 Pure hypercholesterolemia, unspecified; F17.210 Nicotine dependence, cigarettes, uncomplicated; Z86.19 Personal history of other infectious and parasitic diseases; Z87.19 Personal history of other diseases of the digestive system; Z79.82 Long term (current) use of aspirin; Z79.899 Other long term (current) drug therapy
CPT/HCPCS: 99284

== ENCOUNTER 2024-03-18 05:28 | Inpatient (IN) | payer MEDICARE, OTHER, SELFPAY ==
[2024-03-18] VITALS (23 sets, daily range): BP systolic 22–281; BP diastolic 76–91; PULSE 85–95; RESP 16–20; TEMP 36.6–37.2; O2SAT 87–100; BMI 24.3; BMI 22.6; BMI 23.6
--- NOTE | 2024-03-18 06:52 | EKG12_ITS ---
Test Reason : Blood Pressure : */* mmHG Vent. Rate : 86 BPM Atrial Rate : 86 BPM P-R Int : 178 ms QRS Dur : 96 ms QT Int : 400 ms P-R-T Axes : 53 -31 39 degrees QTcB Int : 478 ms Normal sinus rhythm Left axis deviation Left ventricular hypertrophy ( [place] , Romhilt-Marcelo ) Cannot rule out Inferior infarct , age undetermined Abnormal ECG Confirmed by TRAM CASEY, LILIAN ([id number]), editorial director CARMELA VALENTINE ([id number]) on 03/22/2024 7:08:02 AM Referred By: UMAIR Confirmed By: LILIAN UGALDE MD
--- NOTE | 2024-03-18 06:52 | RAD_ITS ---
PROCEDURE: CHEST PA AND LATERAL REASON FOR EXAM: Cough. TECHNIQUE: Single frontal image including the chest and abdomen. COMPARISON: [facility] chest 06/12/2022. RAD/Chest PA and Lateral IMPRESSION: Small bilateral pleural effusions are noted. [id number] interstitial pulmonary edema is noted. Left mid to lower lung and right middle lobe airspace disease is seen; differen tial diagnosis includes pneumonitis and atypical superimposed pulmonary edema. No pneumothorax is noted. The cardiomediastinal silhouette is unchanged, without evidence of cardiomegaly . Reading Location: [id number]
--- NOTE | 2024-03-18 06:54 | EX.ED.DYSGE1 ---
HPI History of Present Illness Chief Complaint: General Illness Informant: patient and spouse/S.O. Narrative Narrative: 2-day history of dyspnea cough intermittent wheeze. History of COPD and tobacco. No home oxygen. Dialysis patient Friday and Fridays. He missed yesterday due to not feeling well. He follows nephrology Dr. Mann. No fevers no myalgias. Denies sick contacts. He still does make urine. Blood pressure elevated on arrival, denies headache chest pain or abdominal pain. No diabetes history. Spouse reporting increasing weakness. [facility] Medical History History of Clostridium difficile infection Marijuana use Alcohol use Walker as ambulation aid History of renal dialysis High cholesterol Dietary restriction Chronic constipation Gastric reflux Smoker Leg cramps CPAP (continuous positive airway pressure) dependence Polio CKD (chronic kidney disease), stage IV Hypertension Home Medications ?Medication ?Instructions ?Recorded ?Last Taken ?Type finasteride 5 mg tablet 5 mg PO DAILY 05/07/22 06/10/22 History multivitamin 1 tab PO DAILY 05/07/22 Unknown History tamsulosin 0.4 mg capsule (Flomax) 0.4 mg PO QHS 05/07/22 06/10/22 History ascorbate calcium (vitamin C) 500 500 mg PO DAILY 08/28/22 Unknown History mg tablet atorvastatin 80 mg tablet 80 mg PO DAILY 08/28/22 Unknown History metoprolol tartrate 25 mg tablet 12.5 mg PO DAILY 08/28/22 12/03/22 04:30 History pantoprazole 40 mg tablet,delayed 40 mg PO DAILY 08/28/22 12/03/22 04:30 History release aspirin 81 mg capsule 81 mg PO DAILY 09/26/22 11/28/22 History cholecalciferol (vitamin D3) 25 25 mcg PO DAILY 09/26/22 Unknown History mcg (1,000 unit) capsule albuterol sulfate 90 mcg/actuation 2 puff inhalation Q4H PRN 10/10/22 Unknown Rx aerosol inhaler (Ventolin HFA) shortness of breath or wheezing #18 grams Allergy/AdvReac Type Severity Reaction Status Date / Time No Known Allergies Allergy Verified 03/18/24 06:50 Surgical History S/P arteriovenous (AV) fistula creation Hx of surgical procedure H/O knee surgery Social History Smoking Status: Current every day smoker tobacco type: cigarettes second hand exposure: Yes ROS ROS ED Constitutional Constitutional ED: Denies chills, fever(s) or sweats ENT ENT ED: Denies sore throat Cardiovascular Cardiovascular: Denies chest pain, leg edema, palpitations or racing heartbeat Respiratory/Chest Respiratory/Chest: Reports cough and dyspnea; Denies dyspnea on exertion Gastrointestinal Gastrointestinal: Denies abdominal pain, diarrhea, nausea or vomiting Genitourinary Genitourinary ED: Denies dysuria, hematuria or urinary frequency Musculoskeletal Musculoskeletal: Denies back pain, extremity pain or neck pain Integumentary Denies rash or wounds Neurologic Neurologic: Reports weakness; Denies headache(s) or paresthesias EXAM Physical Exam Const Vital Signs: 03/18/24 06:51 03/18/24 06:51 03/18/24 06:55 Temperature 98.2 F Temperature Source Oral Pulse Rate 89 Respiratory Rate 18 Respiratory Effort Normal Non-Labored Respiratory Pattern Normal Blood Pressure 189/90 H Blood Pressure Mean 123 Pulse Ox 92 87 Oxygen Delivery Method Room Air Room Air Oxygen Flow Rate (L/min) 03/18/24 07:01 Temperature Temperature Source Pulse Rate Respiratory Rate Respiratory Effort Respiratory Pattern Blood Pressure Blood Pressure Mean Pulse Ox 95 Oxygen Delivery Method Nasal Cannula Oxygen Flow Rate (L/min) 2 Positive well nourished and well developed General Appearance ED: well developed and NAD HEENT Reports moist mucous membranes normocephalic and atraumatic Eyes General Eye ED: Yes normal appearance of both eyes Neck full ROM Chest Wall Chest: Negative for tenderness Resp normal respiratory effort and normal air movement Effort and Inspection: symmetric chest movement; Negative for respiratory distress Cardio regular rate, regular rhythm and no murmurs Peripheral Pulses: pulses 2+ throughout GI normal to inspection, nondistended, normoactive bowel sounds and non-tender Palpation: Negative for guarding or rebound tenderness present Extremity normal to inspection Extremity Narrative: Left upper arm fistula with a positive thrill. General Extremety ED: Negative for edema or tenderness General Extremity: Negative for edema Neuro oriented x3 and no sensory deficits noted Sensorium / Orientation: awake and alert Skin no rashes or lesions noted and no wounds MDM MDM MDM Narrative Medical decision making narrative: Interventions / MDM: Differential diagnosis: COPD exacerbation, hypoxia, end-stage renal disease on hemodialysis. Anemia chronic disease. Pneumonia Diagnosis considered but do not suspect: My EKG interpretation: Sinus rate of 86, no ST or T wave changes. QTc 478. Imaging independently reviewed and interpreted by myself: 2 view chest x-ray: Right lower lobe infiltrate. External documents reviewed: N/A Test considered but not ordered:N/A ED course: Blood pressure in the room 212 rechecked 191 systolic. No headaches, chest pains, or abdominal pain. During room monitoring with good waveforms he is consistently in the high 80s going down to 87%. He is placed on 2 L oxygen. Increasing cough dyspnea and wheeze at home. COPD history. Will give Solu-Medrol, chest x-ray labs EKG ordered. Nasal swabs ordered for further evaluation. With hypoxia will require hospitalization. 0800: Patient's COVID, flu, RSV negative. X-ray chest interpreted myself right lower lobe infiltrate. Blood work pending results. He started on Rocephin and Zithromax. I spoke with hospitalist Dr. Gil for admission. Re-evaluation: stable Disposition discussed with patient/family/significant other: Patient significant other Case discussed with consulting clinician: Hospitalist This note was generated with [employer] dictation software. It may contain incorrect words, spelling, and punctuation that were not noted in checking the note before signing. Lab Data Attestation: I reviewed the patient's lab results. Labs: Laboratory Results - last 24 hr 03/18/24 07:26 WBC 7.0 RBC 2.87 L Hgb 8.5 L Hct 25.1 L MCV 87.5 MCH 29.6 MCHC 33.9 RDW Std Deviation 62.4 H RDW Coeff of Radhika 19.6 H Plt Count 208 MPV 10.3 Immature Gran % (Auto) 0.700 Neut % (Auto) 81.6 H Lymph % (Auto) 10.7 L [place] % (Auto) 5.6 Eos % (Auto) 1.0 Baso % (Auto) 0.4 Absolute Neuts (auto) 5.7 Absolute Lymphs (auto) 0.75 L Nucleated RBC % 0 Sodium 137 Potassium 5.5 H Chloride 105 Carbon Dioxide 25.0 Anion Gap 7 BUN 49 H Creatinine 8.60 H* Estim Creat Clear Calc 8.27 Est GFR (MDRD) Af Amer 8 L Est GFR (MDRD) Non-Af 7 L BUN/Creatinine Ratio 5.7 L Glucose 98 Calcium 9.6 Radiography Diagnostic Testing: Clinical Impression(s) from Imaging Studies Chest X-Ray 03/18/24 06:52 IMPRESSION: Small bilateral pleural effusions are noted. Chhh-ri-[id number] interstitial pulmonary edema is noted. Left mid to lower lung and right middle lobe airspace disease is seen; differential diagnosis includes pneumonitis and atypical superimposed pulmonary edema. No pneumothorax is noted. The cardiomediastinal silhouette is unchanged, without evidence of cardiomegaly. Reading Location: [id number] Discharge Plan Dx/Rx/DC Orders Clinical Impression: Pneumonia, Hypoxia, COPD (chronic obstructive pulmonary disease), Encounter for hemodialysis for ESRD, Hyperkalemia, Anemia Disposition Disposition: Acute Care [facility]
[2024-03-18] MEDS: MethylPREDNISolone 125 MG/2 ML Vial 60 MG IV (07:30)
[2024-03-18 07:43] LABS: Absolute Lymphocyte Count 0.75 X10^3/uL (0.83-4.51); Absolute Neutrophil Count 5.7 X10^3/uL (2.0-7.7); Basophil# 0.03 X10^3/uL; Basophil% 0.4 % (0-1); Eosinophil# 0.07 X10^3/uL; Hematocrit 25.1 % (40-54); Hemoglobin 8.5 g/dL (13.0-16.5); Lymphocyte # 0.75 X10^3/ul (0.83-4.51); Lymphocyte % 10.7 % (19-41); Mean Corp Hgb Conc 33.9 g/dL (32-36); Mean Corpuscular Hgb 29.6 pg (27.0-32.0); Mean Corpuscular Volume 87.5 fL (80-94); Mean Platelet Vol. 10.3 fl (6.2-12.0); Monocyte# 0.39 X10^3/uL; Monocyte% 5.6 % (0-10); NRBC Flagged by Analyzer 0 % (0-5); Neutrophil # 5.71 X10^3/uL (2.7-7.7); Neutrophil % 81.6 % (47-70); Platelet Count 208 K/mm3 (150-450); RBC Distribution Width CV 19.6 % (11.6-14.6); RBC Distribution Width SD 62.4 fl (35.1-43.9); Red Blood Count 2.87 M/mm3 (4.6-6.2)
[2024-03-18 08:11] LABS: Anion Gap 7 (5-15); BUN 49 mg/dL (7-18); BUN/Creat Ratio 5.7 RATIO (10-20); Calcium,Total 9.6 mg/dL (8.5-10.1); Chloride 105 mmol/L (98-107); EST Glomerular Filtration Rate 7 mL/min (>60); Est Glom Filt Rate - Afr Amer 8 mL/min (>60); Estimated Creatinine Clearance 8.27 ml/min; Glucose 98 mg/dL (74-106); Potassium 5.5 mmol/L (3.5-5.1); Sodium Level 137 mmol/L (136-145)
--- NOTE | 2024-03-18 08:23 | PCM.HP.STD ---
HPI - General General Date of Admission: 03/18/24 Date of Service: 03/18/24 Chief Complaint: Generalized weakness, cough and shortness of breath HPI Narrative ILDA CAST, is a 74 M came to ED with 2-day history of cough, shortness of breath and intermittent wheezing. Patient missed his hemodialysis on Friday/yesterday, usually on MWF schedule. Patient also complaining of generalized weakness. Sometimes mild chest tightness all around but no fever shivering. Denies acute sick contact. Dyspnea mainly on laying down/flat supine position and on walking. Patient not on home oxygen. In ED, BP 189/90, heart rate 89/min, pulse ox 87% on room air. Chest x-ray individually reviewed shows small bilateral pleural effusion/mild to moderate interstitial edema and airspace disease of RML and left midlung. [facility] Medical History History of Clostridium difficile infection Marijuana use Alcohol use Walker as ambulation aid History of renal dialysis High cholesterol Dietary restriction Chronic constipation Gastric reflux Smoker Leg cramps CPAP (continuous positive airway pressure) dependence Polio CKD (chronic kidney disease), stage IV Hypertension Home Medications ?Medication ?Instructions ?Recorded ?Last Taken ?Type finasteride 5 mg tablet 5 mg PO DAILY 05/07/22 06/10/22 History multivitamin 1 tab PO DAILY 05/07/22 Unknown History tamsulosin 0.4 mg capsule (Flomax) 0.4 mg PO QHS 05/07/22 06/10/22 History ascorbate calcium (vitamin C) 500 500 mg PO DAILY 08/28/22 Unknown History mg tablet atorvastatin 80 mg tablet 80 mg PO DAILY 08/28/22 Unknown History metoprolol tartrate 25 mg tablet 12.5 mg PO DAILY 08/28/22 12/03/22 04:30 History pantoprazole 40 mg tablet,delayed 40 mg PO DAILY 08/28/22 12/03/22 04:30 History release aspirin 81 mg capsule 81 mg PO DAILY 09/26/22 11/28/22 History cholecalciferol (vitamin D3) 25 25 mcg PO DAILY 09/26/22 Unknown History mcg (1,000 unit) capsule albuterol sulfate 90 mcg/actuation 2 puff inhalation Q4H PRN 10/10/22 Unknown Rx aerosol inhaler (Ventolin HFA) shortness of breath or wheezing #18 grams Allergy/AdvReac Type Severity Reaction Status Date / Time No Known Allergies Allergy Verified 03/18/24 06:50 Surgical History S/P arteriovenous (AV) fistula creation Hx of surgical procedure H/O knee surgery Social History Smoking Status: Current every day smoker tobacco type: cigarettes second hand exposure: Yes ROS ROS Narrative Constitutional: Reports fatigue and weakness. No fever. HEENT: Reports systems reviewed and no addt'l complaints, except as documented Respiratory/Chest: As described in HPI. CVS: No chest pressure. Gastrointestinal: Denies coffee ground emesis, hematemesis or vomiting Genitourinary: Denies burning urination or new urinary tract symptoms. On hemodialysis Musculoskeletal: Denies acute joint pain or limited range of motion. No acute injury Neurologic: Short and thin right lower extremity from polio. Denies seizure-like symptoms. skin: Left arm AV fistula. No ulcer. No rash Endocrinology: Reports systems reviewed and no addt'l complaints, except as documented Hematologic/Lymphatic: Reports systems reviewed and no addt'l complaints, except as documented Rest 14 ROS are negative except as mentioned in HPI Vital Signs Vital Signs Vital Signs: 03/18/24 06:51 03/18/24 06:51 03/18/24 06:55 Temperature 98.2 F Temperature Source Oral Pulse Rate 89 Respiratory Rate 18 Respiratory Effort Normal Non-Labored Respiratory Pattern Normal Blood Pressure 189/90 H Blood Pressure Mean 123 Pulse Ox 92 87 Oxygen Delivery Method Room Air Room Air Oxygen Flow Rate (L/min) 03/18/24 07:01 Temperature Temperature Source Pulse Rate Respiratory Rate Respiratory Effort Respiratory Pattern Blood Pressure Blood Pressure Mean Pulse Ox 95 Oxygen Delivery Method Nasal Cannula Oxygen Flow Rate (L/min) 2 Weight Weight: 179 lb 7.3 oz Body Mass Index (BMI) 24.3 Physical Exam Narrative General: Alert, Oriented x3, Cooperative HEENT: Atraumatic, PERRLA, EOMI, Normocephalic Oral: No Gingival or Mucosal Lesions/ Ulcerations Neck: Supple, No JVD, Negative Carotid Bruits Chest wall/Lungs: Air entry diminished in bilateral lung bases. Mild bilateral lower lobes wheezing. Cardiovascular: Regular rate, Regular Rhythm, Normal S1, Normal S2, No M/G/R Abdomen: Bowel Sounds Present, Soft, Non Tender, Non-Distended : No dysuria. No renal angle tenderness. No suprapubic tenderness. Extremities: No edema, Capillary Refill Less than 3 Seconds Skin: No rashes, No breakdown Musculoskeletal: RLE shorter and decreased muscle bulk of calf from polio. No Tenderness to Palpation of Joints or Extremities Neurological: Cranial nerves II-XII grossly intact, DTR 2+/4. No acute focal neurological deficit. Psych/Mental Status: Normal Affect, Appropriate. Results Lab / Micro Data 03/18/24 07:26 03/18/24 07:26 Labs: Laboratory Results - last 24 hr 03/18/24 07:26: WBC 7.0, RBC 2.87 L, Hgb 8.5 L, Hct 25.1 L, MCV 87.5, MCH 29.6, MCHC 33.9, RDW Std Deviation 62.4 H, RDW Coeff of Radhika 19.6 H, Plt Count 208, MPV 10.3, Immature Gran % (Auto) 0.700, Neut % (Auto) 81.6 H, Lymph % (Auto) 10.7 L, [place] % (Auto) 5.6, Eos % (Auto) 1.0, Baso % (Auto) 0.4, Absolute Neuts (auto) 5.7, Absolute Lymphs (auto) 0.75 L, Nucleated RBC % 0, Sodium 137, Potassium 5.5 H, Chloride 105, Carbon Dioxide 25.0, Anion Gap 7, BUN 49 H, Creatinine 8.60 H*, Estim Creat Clear Calc 8.27, Est GFR (MDRD) Af Amer 8 L, Est GFR (MDRD) Non-Af 7 L, BUN/Creatinine Ratio 5.7 L, Glucose 98, Calcium 9.6 Micro: Microbiology 03/18/24 07:02 Mucosa - Nasopharyngeal SARS-CoV-2, Influenza & RSV (PCR) - Final Imaging Radiology Impression Chest X-Ray 03/18/24 06:52 IMPRESSION: Small bilateral pleural effusions are noted. Mbsi-[id number] interstitial pulmonary edema is noted. Left mid to lower lung and right middle lobe airspace disease is seen; differential diagnosis includes pneumonitis and atypical superimposed pulmonary edema. No pneumothorax is noted. The cardiomediastinal silhouette is unchanged, without evidence of cardiomegaly. Reading Location: [id number] Assessment & Plan Assessment/Plan (1) COPD exacerbation: PLAN: Plan This 74-year-old gentleman came to ED for shortness of breath and wheezing and orthopnea for last 3 days. Diminished hemodialysis 1. Dyspnea at rest and mild hypoxia probably due to missed hemodialysis, possible heart failure and/or COPD exacerbation: Patient is being admitted on [facility] with telemetry on 2 L of oxygen. No prior echo therefore echo ordered. 2. COPD exacerbation possible due to pneumonia: Chest x-ray initially reviewed and shows bilateral RML and left lower airspace disease with a small pleural effusion and interstitial edema. Patient is being managed on scheduled bronchodilator, IV Solu-Medrol, Mucinex, incentive spirometry and Pep. Started on IV antibiotic Rocephin and Zithromax. Pneumonia workup ordered. Triple PCR for SARS-CoV-2, flu and RSV are negative. Respiratory panel negative 3. Possible heart failure: Patient is getting hemodialysis. BNP ordered. Started on hydralazine and nitrate. Cannot comment about the type, etiology and classification of heart failure. 4. Hypertension, essential uncontrolled: Blood pressure systolic in 170s. Hydralazine IV as needed also ordered. 5. ESRD on hemodialysis: Patient getting hemodialysis. Clinical Rn Manager consulted 6 BPH: Patient on tamsulosin and finasteride. 7. Other comorbidities include dyslipidemia and GERD: Patient on atorvastatin and PPI DVT prophylaxis: On heparin subcu for 30 days twice daily Living will/advanced directive/end of life care: Patient does have living will or advanced directive. His is power of commercial attorney for health. After discussion of benefits/risks procedures involved with full code, DNR CC arrest and DNR CC, the patient opted for full code. Patient does want artificial life support including intubation, tube feed, ventilator and/chest compression, central venous catheter, vasopressor and DC shock if needed Total time spent in [id number] encounter in discussion of advanced directive 17 minutes. Microbiology Past 72 Hours 03/18/24 09:28 Mucosa - Nose Respiratory Panel (PCR) - Final 03/18/24 07:02 Mucosa - Nasopharyngeal SARS-CoV-2, Influenza & RSV (PCR) - Final Laboratory Results 03/18/24 07:26: WBC 7.0, RBC 2.87 L, Hgb 8.5 L, Hct 25.1 L, MCV 87.5, MCH 29.6, MCHC 33.9, RDW Std Deviation 62.4 H, RDW Coeff of Radhika 19.6 H, Plt Count 208, MPV 10.3, Immature Gran % (Auto) 0.700, Neut % (Auto) 81.6 H, Lymph % (Auto) 10.7 L, [place] % (Auto) 5.6, Eos % (Auto) 1.0, Baso % (Auto) 0.4, Absolute Neuts (auto) 5.7, Absolute Lymphs (auto) 0.75 L, Nucleated RBC % 0, Sodium 137, Potassium 5.5 H, Chloride 105, Carbon Dioxide 25.0, Anion Gap 7, BUN 49 H, Creatinine 8.60 H*, Estim Creat Clear Calc 8.27, Est GFR (MDRD) Af Amer 8 L, Est GFR (MDRD) Non-Af 7 L, BUN/Creatinine Ratio 5.7 L, Glucose 98, Calcium 9.6, Phosphorus 5.0 H, Magnesium 2.6 Clinical Impression(s) from Imaging Studies Chest X-Ray 03/18/24 06:52 IMPRESSION: Small bilateral pleural effusions are noted. [id number] interstitial pulmonary edema is noted. Left mid to lower lung and right middle lobe airspace disease is seen; differential diagnosis includes pneumonitis and atypical superimposed pulmonary edema. No pneumothorax is noted. The cardiomediastinal silhouette is unchanged, without evidence of cardiomegaly. Charges/Coding Visit Charges Inpatient E&M: 15566 Init Hosp L3 Procedures Hospitalists Procedures: 98607 Advncd Care Plan 30 Min
[2024-03-18] MEDS: Ceftriaxone 1 GM/50 ML BAG IV (08:26)
[2024-03-18] MEDS: Albuterol 2.5 MG/3 ML VIAL.NEB. INHALATION (08:31)
[2024-03-18] MEDS: Azithromycin 500 MG in 0.9% Normal Saline (250mL Bag) 250 ML 255 MG IV (08:49)
[2024-03-18 09:19] LABS: Magnesium 2.6 mg/dL (1.6-2.6)
[2024-03-18] MEDS: Lidocaine/Prilocaine HCl 5 GM Tube TOPICAL (10:12)
[2024-03-18] MEDS: 0.9% Normal Saline 1,000 ML IV.SOLN. 1000 ML OPERA.SITE (11:21)
[2024-03-18] MEDS: PureFlow B 2K Dialysis Soln 1 BAG 6 BAG PF (11:21)
--- NOTE | 2024-03-18 11:30 | PCM.CONS.R ---
Assessment & Plan Assessment/Plan (1) ESRD (end stage renal disease): PLAN: On hemodialysis Friday, Friday, Friday schedule. Last dialysis was Friday. He missed dialysis yesterday due to being sick. Seen on dialysis today. Will plan to remove about 1 to 2 L as tolerated. Hyperkalemia. Will use 2K solution with dialysis today HPI Consult Data Date of Consult: 03/18/24 HPI Narrative Reason for Consultation: ESRD HPI Narrative: ILDA CAST, is a 74 M who presents To the hospital with generalized weakness, shortness of breath admitted with what looks like an episode of respiratory viral illness. Respiratory viral panel pending. ESRD on hemodialysis Friday, Friday, Friday. Did not go to dialysis yesterday since he was sick He says he has been feeling sick for the last 1 week or so. Nobody else around sick. [facility] Medical History History of Clostridium difficile infection Marijuana use Alcohol use Walker as ambulation aid History of renal dialysis High cholesterol Dietary restriction Chronic constipation Gastric reflux Smoker Leg cramps CPAP (continuous positive airway pressure) dependence Polio CKD (chronic kidney disease), stage IV Hypertension Home Medications ?Medication ?Instructions ?Recorded ?Last Taken ?Type finasteride 5 mg tablet 5 mg PO DAILY 05/07/22 06/10/22 History multivitamin 1 tab PO DAILY 05/07/22 Unknown History tamsulosin 0.4 mg capsule (Flomax) 0.4 mg PO QHS 05/07/22 06/10/22 History ascorbate calcium (vitamin C) 500 500 mg PO DAILY 08/28/22 Unknown History mg tablet atorvastatin 80 mg tablet 80 mg PO DAILY 08/28/22 Unknown History metoprolol tartrate 25 mg tablet 12.5 mg PO DAILY 08/28/22 12/03/22 04:30 History pantoprazole 40 mg tablet,delayed 40 mg PO DAILY 08/28/22 12/03/22 04:30 History release aspirin 81 mg capsule 81 mg PO DAILY 09/26/22 11/28/22 History cholecalciferol (vitamin D3) 25 25 mcg PO DAILY 09/26/22 Unknown History mcg (1,000 unit) capsule albuterol sulfate 90 mcg/actuation 2 puff inhalation Q4H PRN 10/10/22 Unknown Rx aerosol inhaler (Ventolin HFA) shortness of breath or wheezing #18 grams Allergy/AdvReac Type Severity Reaction Status Date / Time No Known Allergies Allergy Verified 03/18/24 06:50 Surgical History S/P arteriovenous (AV) fistula creation Hx of surgical procedure H/O knee surgery Social History Smoking Status: Current every day smoker tobacco type: cigarettes second hand exposure: Yes ROS ROS Narrative Negative except above Physical Exam Narrative Alert awake oriented x 3 no obvious distress no pallor no icterus no JVD s1s2 no murmurs lungs clear abdomen soft no organomegaly no edema no cyanosis Lab / Micro Data 03/18/24 07:26 03/18/24 07:26 Labs: Laboratory Results - last 24 hr 03/18/24 07:26: WBC 7.0, RBC 2.87 L, Hgb 8.5 L, Hct 25.1 L, MCV 87.5, MCH 29.6, MCHC 33.9, RDW Std Deviation 62.4 H, RDW Coeff of Radhika 19.6 H, Plt Count 208, MPV 10.3, Immature Gran % (Auto) 0.700, Neut % (Auto) 81.6 H, Lymph % (Auto) 10.7 L, [place] % (Auto) 5.6, Eos % (Auto) 1.0, Baso % (Auto) 0.4, Absolute Neuts (auto) 5.7, Absolute Lymphs (auto) 0.75 L, Nucleated RBC % 0, Sodium 137, Potassium 5.5 H, Chloride 105, Carbon Dioxide 25.0, Anion Gap 7, BUN 49 H, Creatinine 8.60 H*, Estim Creat Clear Calc 8.27, Est GFR (MDRD) Af Amer 8 L, Est GFR (MDRD) Non-Af 7 L, BUN/Creatinine Ratio 5.7 L, Glucose 98, Calcium 9.6, Phosphorus 5.0 H, Magnesium 2.6 Micro: Microbiology 03/18/24 07:02 Mucosa - Nasopharyngeal SARS-CoV-2, Influenza & RSV (PCR) - Final Imaging Radiology Impression Chest X-Ray 03/18/24 06:52 IMPRESSION: Small bilateral pleural effusions are noted. [id number] interstitial pulmonary edema is noted. Left mid to lower lung and right middle lobe airspace disease is seen; differential diagnosis includes pneumonitis and atypical superimposed pulmonary edema. No pneumothorax is noted. The cardiomediastinal silhouette is unchanged, without evidence of cardiomegaly. Reading Location: [id number]
--- NOTE | 2024-03-18 13:41 | ECHOD_ITS ---
Reason For Study: PULMONARY EDEMA Procedure This was a 2D Doppler, Color Flow transthoracic echocardiogram. Myocardial strain analysis was performed in this exam to aid in the assessment of cardiac function. Exam performed portable in patient room. Left Ventricle Normal LV size. Moderate concentric left ventricular hypertrophy. The global longitudinal strain = - 11.4% (abnormal). The left ventricular ejection fraction is 45 %. Stage 1 diastolic dysfunction. There is mild global hypokinesis of the left ventricle. Right Ventricle Normal RV size. Normal systolic function. Atria The left atrium is moderately enlarged. Normal right atrium. Mitral Valve Bileaflet diffuse mitral valve thickening. Mild (1+) eccentric mitral valve insufficiency. Tricuspid Valve Normal tricuspid valve. Mild tricuspid valve insufficiency. Pulmonary artery systolic pressure is 48 mmHg. Aortic Valve Trisinus/trileaflet aortic valve. Mild focal aortic valve calcification. Pulmonic Valve Normal pulmonic valve. Great Vessels Normal aortic root. The pulmonary artery is normal size. Inferior vena cava collapse with respiration. Pericardium/Pleural No pericardial effusion. MMode/2D Measurements & Calculations LVIDd: 6.1 cm IVSd: 1.5 cm LVOT diam: 2.1 cm LVIDs: 4.9 cm LVPWd: 1.4 cm LVOT area: 3.4 cm2 RVDd: 3.8 cm FS: 19.2 % _ asc Aorta Diam: 3.9 cm LAV(MOD-bp): 105.3 ml LVAd ap4: 39.1 cm2 LAV(MOD-bp) Indexed: 50.8 ml/m2 LVLd ap4: 9.0 cm LAV(MOD-sp2): 128.5 ml EDV(MOD- sp4): 140.5 ml LAV(MOD-sp4): 74.8 ml EDV(sp4- el): 144.7 ml LVAs ap4: 26.5 cm2 LVLs ap4: 7.8 cm ESV(MOD- sp4): 74.5 ml ESV(sp4- el): 76.2 ml EF(MOD- sp4): 46.9 % EF(sp4- el): 47.3 % _ LVAd ap2: 37.7 cm2 SV(MOD-sp4): 65.9 ml SV(MOD- sp2): 56.7 ml LVLd ap2: 9.2 cm SI(MOD-sp4): 31.8 ml/m2 SI(MOD- sp2): 27.3 ml/m2 EDV(MOD-sp2): 130.7 ml EDV(sp2-el): 130.6 ml LVAs ap2: 26.6 cm2 LVLs ap2: 8.0 cm ESV(MOD-sp2): 74.0 ml ESV(sp2-el): 74.6 ml EF(MOD-sp2): 43.4 % _ SV(sp4-el): 68.5 ml Ao sinus diam: 3.[address] Junction: 3.2 cm _ LA dimension(2D): 4.1 cm LA A4 area: 23.8 cm2 RA A4 area: 17.4 cm2 _ TAPSE: 1.8 cm Time Measurements MV dec time: 0.17 sec Doppler Measurements & Calculations MV E max feroz: 88.9 cm/sec Lat Peak E' Feroz: 7.4 cm/sec Med Peak E' Feroz: 10.5 cm/sec MV A max feroz: 119.0 cm/sec E/E' lat: 11.9 E/E' med: 8.4 MV E/A: 0.75 _ MV dec slope: 538.7 cm/sec2 Ao V2 max: 163.7 cm/sec LV V1 max: 132.1 cm/sec Ao max P.7 mmHg LV V1 max P.0 mmHg Ao V2 mean: 113.6 cm/sec LV V1 mean P.4 mmHg Ao mean P.9 mmHg LV V1 mean: 84.7 cm/sec Ao V2 VTI: 35.0 cm LV V1 VTI: 24.6 cm AV (velocity ratio): 0.70 STEVEN(I,D): 2.4 cm2 STEVEN(V,D): 2.8 cm2 _ SV(LVOT): 84.7 ml PA V2 max: 92.2 cm/sec TR max feroz: 330.4 cm/sec TR max P.7 mmHg ECHO/Echo Complete Interpretation Summary Normal LV size. Moderate concentric left ventricular hypertrophy. The global longitudinal strain = -11.4% (abnormal). The left ventricular ejection fraction is 45 %. There is mild global hypokinesis of the left ventricle. Stage 1 diastolic dysfunction. The global longitudinal strain is moderately abnormal. Apicalsparing pattern no nj. cannot exclude amyloid. Pulmonary artery systolic pressure is 48 mmHg. The global longitudinal strain is moderately abnormal. Ordering Physician: Deshawn Gil Performed By: Melanie Pa RDCS
[2024-03-18 14:44] LABS: BNP,B-Type NATRIURETIC PEPTIDE 868.3 pg/mL (0-100)
[2024-03-18] MEDS: Isosorbide Mononitrate 30 MG Tablet PO (15:51)
[2024-03-18] MEDS: hydrALAZINE 25 MG Tablet PO ×2 (15:52→21:20)
[2024-03-18] MEDS: Metoprolol(XL)Succ 25 MG Tablet PO (15:53)
[2024-03-18] MEDS: Heparin Injection (Vial) 5,000 UNIT/ML VIAL 5000 UNIT SC ×2 (15:54→21:21)
[2024-03-18] MEDS: guaiFENesin 1,200 MG Tablet 1200 MG PO ×2 (15:54→21:21)
[2024-03-18] MEDS: Senna/Docusate Sodium 1 Tablet 2 TABLET PO ×2 (15:54→21:21)
[2024-03-18] MEDS: Heparin 10,000 UNITS/10 ML Vial 4000 UNITS IV (17:32)
[2024-03-18] MEDS: Tamsulosin HCl 0.4 MG Capsule PO (21:21)
[2024-03-18] MEDS: MELATONIN 3 MG TABLET PO (23:27)
[2024-03-19] VITALS (14 sets, daily range): BP systolic 67–273; BP diastolic 65–70; PULSE 70–79; RESP 14; TEMP 36.4–36.8; O2SAT 94–100; BMI 23.5; BMI 22.8
[2024-03-19] MEDS: hydrALAZINE 25 MG Tablet PO (05:05)
[2024-03-19] MEDS: 0.9% Saline Lock 10 ML Syringe IV (05:06)
[2024-03-19 06:44] LABS: Absolute Lymphocyte Count 1.07 X10^3/uL (0.83-4.51); Absolute Neutrophil Count 5.9 X10^3/uL (2.0-7.7); Hematocrit 22.1 % (40-54); Hemoglobin 7.7 g/dL (13.0-16.5); Lymphocyte # 1.07 X10^3/ul (0.83-4.51); Lymphocyte % 13.8 % (19-41); Mean Corp Hgb Conc 34.8 g/dL (32-36); Mean Corpuscular Hgb 29.7 pg (27.0-32.0); Mean Corpuscular Volume 85.3 fL (80-94); Mean Platelet Vol. 9.8 fl (6.2-12.0); NRBC Flagged by Analyzer 0 % (0-5); Neutrophil # 5.93 X10^3/uL (2.7-7.7); Neutrophil % 76.7 % (47-70); Platelet Count 169 K/mm3 (150-450); RBC Distribution Width CV 19.9 % (11.6-14.6); RBC Distribution Width SD 61.5 fl (35.1-43.9); Red Blood Count 2.59 M/mm3 (4.6-6.2); White Blood Count 7.7 K/mm3 (4.4-11.0)
[2024-03-19 07:21] LABS: Anion Gap 7 (5-15); BUN 43 mg/dL (7-18); BUN/Creat Ratio 6.3 RATIO (10-20); Calcium,Total 9.2 mg/dL (8.5-10.1); Chloride 101 mmol/L (98-107); Creatinine, Serum 6.79 mg/dL (0.70-1.30); EST Glomerular Filtration Rate 9 mL/min (>60); Est Glom Filt Rate - Afr Amer 10 mL/min (>60); Estimated Creatinine Clearance 10.64 ml/min; Glucose 97 mg/dL (74-106); Potassium 5.2 mmol/L (3.5-5.1); Sodium Level 135 mmol/L (136-145)
[2024-03-19] MEDS: PureFlow B 2K Dialysis Soln 1 BAG 6 BAG PF (11:19)
[2024-03-19] MEDS: 0.9% Normal Saline 1,000 ML IV.SOLN. 1000 ML OPERA.SITE (11:19)
--- NOTE | 2024-03-19 11:28 | PCM.DC ---
Discharge Instructions DC O2, CPAP, BIPAP needs RN Home O2 Qualification: Home O2 Qualification: Is the patient on home oxygen No 03/19/24 13:20 Home O2 Qualification: AT REST 1- Pulse Ox at rest 94 03/19/24 13:20 Home O2 Qualification: WITH AMBULATION 1- Pulse Ox with ambulation 95 03/19/24 13:20 1- Oxygen Flow Rate with 0 03/19/24 13:20 ambulation Home O2 Discharge instructions: No Follow Up Care Test Results: Test results from this visit will be discussed in further detail at your follow-up appointment, if applicable. Discharge Plan Admission Admit Date/Time: 03/18/24 08:23 Attending Provider: Deshawn Gil Primary Care Provider: Jossue Yeboah NP Consulting Providers: Funmilayo Carrillo Discharge Orders/Prescriptions Prescriptions: New sennosides-docusate sodium [Stimulant Laxative Plus] 8.6-50 mg Tablet 2 tab PO BID Qty: 0 0RF metoprolol succinate 25 mg Tablet Extended Release 24 Hr 25 mg PO DAILY 30 Days Qty: 30 2RF guaifenesin [Mucus Relief ER] 1,200 mg Tablet Extended Release 12hr 1,200 mg PO BID 7 Days Qty: 14 0RF hydralazine 50 mg tablet 50 mg PO BID 30 Days Qty: 60 1RF isosorbide mononitrate 30 mg Tablet Extended Release 24 Hr 30 mg PO DAILY 30 Days Qty: 30 1RF furosemide 40 mg tablet 40 mg PO DAILY 30 Days Qty: 30 2RF Rx Instructions: Take extra 40 mg dose at 5 PM for increased leg swelling or weight gain 5 pounds in 1 week. Continued atorvastatin 80 mg tablet 80 mg PO DAILY pantoprazole 40 mg tablet,delayed release (DR/EC) 40 mg PO DAILY ascorbate calcium (vitamin C) 500 mg tablet 500 mg PO DAILY albuterol sulfate [Ventolin HFA] 90 mcg/actuation HFA aerosol inhaler 2 puff inhalation Q4H PRN (Reason: shortness of breath or wheezing) Qty: 18 6RF multivitamin Tablet 1 tab PO DAILY tamsulosin [Flomax] 0.4 mg Capsule 0.4 mg PO QHS finasteride 5 mg Tablet 5 mg PO DAILY cholecalciferol (vitamin D3) 25 mcg (1,000 unit) capsule 25 mcg PO DAILY aspirin 81 mg capsule 81 mg PO DAILY Discontinued metoprolol tartrate 25 mg tablet 12.5 mg PO DAILY Referrals / Follow Up: Funmilayo Carrillo MD [Med Staff - Consulting] - Within 1 Month Batsheva Huston NP, STUDIO OPERATION ENGINEER-C [Non-Staff -Ordering Privileges] - Within 2 Weeks Jossue Yeboah NP, STUDIO OPERATION ENGINEER-C [Primary Care Provider] - Disposition Disposition (needs filled in before D/C Order can be placed): Home, Self Care
--- NOTE | 2024-03-19 11:45 | CASEMGMT ---
Addendum entered by Jose Adair 03/19/24 13:39: Strata: 2 Original Note: RN CM [employer] CM?to room to meet with patient for initial transition planning/care coordination assessment. RN CM?introduced self and role at [facility]. Pt voices understanding and consents to assessment?at this time. Pt resting in bed in no distress at this time, receiving HD. Pt is A/O at this time and answers all questions appropriately. Care providers, pharmacy, and demographics verified/updated at this time. PCP: PATRICIA Yeboah Specialists: Dr Bryant, [facility] HD: Goes to [facility] in [place] for OP HD, MWF, chair time 0630. Preferred Pharmacy: [facility] and [facility] in [place]. Insurance: [facility], [facility] Prescription Benefit: yes LNOK: [place] Living Arrangements: Lives w/ in one-story home w/basement and 3 steps to enter home. Pt states he is able to navigate the stairs independently. There is one handrail @ the back entrance and 2 handrails @ front entrance. Pt does not go to the basement. Pt states he is independent w/ADL's and manages his own medications. His does the grocery shopping and home mgnt tasks. Transportation:?Pt does not drive. provides transportation and will be taking pt home @ dc. DME: States has the following DME: shower chair, walker, rollator. Pt states he uses walker or rollator @ all times. Pt has a PAP, but states has not worn for a long time d/t unable to tolerate. He does not have a pulse ox, recommended to get one by GLORIA RAMOS, and made aware of locations this could be purchased. No home O2. If pt qualifies for home O2 @ dc, he states to use [employer] after verbal list of DME companies provided and he was made aware [employer] is affiliated w/[facility]. Pt states no need for further DME at this time. HHC/SNF: Pt [facility] and [facility]. Pt wishes to return home, feels safe returning home, and states has no concerns with going home at time of discharge. He declines wanting HHC or OP therapy. Made aware to f/u with PCP if he changes his mind once returning home. CM?to follow for home oxygen needs and any further discharge planning/needs. Pt voices no further concerns/needs at this time. Advised pt to ask for CM?if any further questions/concerns/needs arise. Voices understanding. PLAN: Home Follow for possible home O2. PT/OT evals pending. Aryan GASPAR RN CM
[2024-03-19] MEDS: Pantoprazole Sodium 40 MG Tablet PO (12:24)
[2024-03-19] MEDS: Senna/Docusate Sodium 1 Tablet 2 TABLET PO (12:24)
[2024-03-19] MEDS: Isosorbide Mononitrate 30 MG Tablet PO (12:25)
[2024-03-19] MEDS: Finasteride 5 MG Tablet PO (12:25)
[2024-03-19] MEDS: guaiFENesin 1,200 MG Tablet 1200 MG PO (12:25)
[2024-03-19] MEDS: Multivitamins,Therapeutic Tablet 1 TABLET PO (12:25)
[2024-03-19] MEDS: Atorvastatin Calcium 80 MG Tablet PO (12:25)
[2024-03-19] MEDS: Aspirin 81 MG TAB.CHEW PO (12:25)
[2024-03-19] MEDS: Metoprolol(XL)Succ 25 MG Tablet PO (12:26)
[2024-03-19] MEDS: Cholecalciferol (VIT D3) 25 MCG TABLET (1,000 UNITS) PO (12:26)
[2024-03-19] MEDS: Ascorbic Acid 500 MG Tablet PO (12:26)
--- NOTE | 2024-03-19 13:15 | PCM.PN.REN ---
Subjective Subjective no new events Objective Data Objective Data Vital Signs: Vital Signs Temp Pulse Resp BP Pulse Ox O2 Del Method O2 Flow Rate 97.9 F 79 14 156/67 H 95 Room Air 2 03/19/24 11:41 03/19/24 12:26 03/19/24 11:41 03/19/24 12:26 03/19/24 11:41 03/19/24 11:41 03/19/24 08:15 Oxygen Flow Rate (L/min) 2 Oxygen Delivery Method Room Air Weight: 76.5 kg Body Mass Index (BMI) 22.8 Intake & Output: Intake and Output for Last 24 Hours 03/17/24 03/18/24 03/19/24 23:59 23:59 23:59 Intake Total 545 / 920 775 / 775 Output Total 5010 / 5010 1979 Balance -4465 / -4090 -1205 / -1205 Lab / Micro Data 03/19/24 05:13 03/19/24 05:13 Labs: Laboratory Results - last 24 hr 03/18/24 07:26: B-Natriuretic Peptide 868.3 H 03/19/24 05:13: WBC 7.7, RBC 2.59 L, Hgb 7.7 L, Hct 22.1 L, MCV 85.3, MCH 29.7, MCHC 34.8, RDW Std Deviation 61.5 H, RDW Coeff of Radhika 19.9 H, Plt Count 169, MPV 9.8, Immature Gran % (Auto) 0.500, Neut % (Auto) 76.7 H, Lymph % (Auto) 13.8 L, [place] % (Auto) 9.0, Eos % (Auto) 0.0, Baso % (Auto) 0.0, Absolute Neuts (auto) 5.9, Absolute Lymphs (auto) 1.07, Nucleated RBC % 0, Sodium 135 L, Potassium 5.2 H, Chloride 101, Carbon Dioxide 27.0, Anion Gap 7, BUN 43 H, Creatinine 6.79 H, Estim Creat Clear Calc 10.64, Est GFR (MDRD) Af Amer 10 L, Est GFR (MDRD) Non-Af 9 L, BUN/Creatinine Ratio 6.3 L, Glucose 97, Calcium 9.2, TSH 0.970 Micro: Microbiology 03/18/24 15:36 Urine, Clean Catch Streptococcus pneumoniae Antigen (M - Final 03/18/24 15:36 Urine, Clean Catch Legionella Antigen - Final 03/18/24 13:45 Nasal Secretion MRSA (PCR) - Final 03/18/24 09:28 Mucosa - Nose Respiratory Panel (PCR) - Final 03/18/24 07:02 Mucosa - Nasopharyngeal SARS-CoV-2, Influenza & RSV (PCR) - Final Radiography Diagnostic Testing: Radiology Impression Echocardiogram 03/18/24 13:41 Interpretation Summary Normal LV size. Moderate concentric left ventricular hypertrophy. The global longitudinal strain = -11.4% (abnormal). The left ventricular ejection fraction is 45 %. There is mild global hypokinesis of the left ventricle. Stage 1 diastolic dysfunction. The global longitudinal strain is moderately abnormal. Apicalsparing pattern noted. cannot exclude amyloid. Pulmonary artery systolic pressure is 48 mmHg. The global longitudinal strain is moderately abnormal. Ordering Physician: Deshawn Gil Performed By: Melanie Pa RDCS Physical Exam Narrative Alert awake oriented x 3 no obvious distress no pallor no icterus no JVD s1s2 no murmurs lungs clear abdomen soft no organomegaly no edema no cyanosis Assessment & Plan Assessment/Plan (1) ESRD (end stage renal disease): PLAN: On hemodialysis Friday, Friday, Friday schedule. HD today Hyperkalemia. better
[2024-03-19] MEDS: Ceftriaxone 2 GM in 0.9% Normal Saline (50mL MB+) 50 ML IV (13:19)
--- NOTE | 2024-03-19 13:35 | CASEMGMT ---
Pt does not qualify for home oxygen.
--- NOTE | 2024-03-19 13:39 | DS.PCM_ITS ---
Providers Date of Admission: 03/18/24 Date of Discharge: 03/19/24 Primary Care Physician: Jossue Yeboah, [employer] LAW ENFORCEMENT AGENT-C Consultations 03/18/24 09:19 Consult: Nephrology Routine Consulting Provider: Funmilayo Carrillo Reason for Consult: Needs dialysis today EMERGENT Consult: No MD Notified: Yes Date Notified: 03/18/24 Time Notified: 08:49 Method of Notification: Verbal Reason For Visit: MISSED HD, COPD EXA Diagnosis Discharge Diagnosis (1) ESRD (end stage renal disease): Status: Acute Code(s): N18.6 - End stage renal disease Plan This 74-year-old gentleman came to ED for shortness of breath and wheezing and orthopnea for last 3 days. Diminished hemodialysis 1. Dyspnea at rest and mild hypoxia probably due to missed hemodialysis, possible heart failure and/or COPD exacerbation: Patient is being admitted on [facility] with telemetry on 2 L of oxygen. No prior echo therefore echo ordered. 03/19: 2D echocardiogram shows EF 45%, mild global hypokinesis, history of moderately enlarged. Mild eccentric MR, mild TR PASP 42 mmHg. Overall suggestive of acute on chronic diastolic heart failure 2. COPD: Chest x-ray shows bilateral lower airspace consolidation patient had cough and shortness of breath which got better after dialysis therefore most likely from C6 admission. Advised follow-up with pulmonary clinic., interstitial edema and bilateral small effusions suggestive of CHF exacerbation. Pneumonia ruled out. Urinary antigens, MRSA PCR and respiratory panel negative. Triple PCR for SARS-CoV-2, flu and RSV are negative. Antibiotics discontinued 3. Acute on chronic HFpEF probably due to uncontrolled hypertension/cardiorenal disease: Patient is getting hemodialysis. BNP elevated 868. Started on hydralazine and nitrate. Echo findings as mentioned above. Discharged on baby aspirin, metoprolol succinate, hydralazine and nitrate. Follow-up in [place] [facility] in 2 weeks 4. Hypertension, essential uncontrolled: Blood pressure systolic in 170s. Hydralazine IV as needed also ordered. 03/19: Blood pressure got better systolic 150s. Hydralazine dose increased to 50 mg twice daily, Imdur 30 mg daily. 5. ESRD on hemodialysis: Patient getting hemodialysis. Herbologist consulted 6 BPH: Patient on tamsulosin and finasteride. 7. Other comorbidities include dyslipidemia and GERD: Patient on atorvastatin and PPI DVT prophylaxis: On heparin subcu for 30 days twice daily Discharge medication reconciliation done. Discharge follow-up instructions completed. Discharge process discussed with the patient and all questions were answered to patient's satisfaction. Follow with PCP in 1 to 2 weeks Total time spent, exact 35 minutes on discharge meds reconciliation, examination, coordination of care with nurses and ancillary staff, review of imaging and blood test and discussion with the patient on follow-up instructions. Living will/advanced directive/end of life care: Patient does have living will or advanced directive. His is power of attorney at law for health. After discussion of benefits/risks procedures involved with full code, DNR CC arrest and DNR CC, the patient opted for full code. Patient does want artificial life support including intubation, tube feed, ventilator and/chest compression, central venous catheter, vasopressor and DC shock if needed Clinical Impression(s) from Imaging Studies Chest X-Ray 03/18/24 06:52 IMPRESSION: Small bilateral pleural effusions are noted. [id number] interstitial pulmonary edema is noted. Left mid to lower lung and right middle lobe airspace disease is seen; differential diagnosis includes pneumonitis and atypical superimposed pulmonary edema. No pneumothorax is noted. The cardiomediastinal silhouette is unchanged, without evidence of cardiomegaly. Medications at Discharge Home Medications finasteride 5 mg tablet 5 mg PO DAILY 05/07/22 multivitamin 1 tab PO DAILY 05/07/22 tamsulosin 0.4 mg capsule (Flomax) 0.4 mg PO QHS 05/07/22 ascorbate calcium (vitamin C) 500 mg tablet 500 mg PO DAILY 08/28/22 atorvastatin 80 mg tablet 80 mg PO DAILY 08/28/22 pantoprazole 40 mg tablet,delayed release 40 mg PO DAILY 08/28/22 aspirin 81 mg capsule 81 mg PO DAILY 09/26/22 cholecalciferol (vitamin D3) 25 mcg (1,000 unit) capsule 25 mcg PO DAILY 09/26/22 albuterol sulfate 90 mcg/actuation aerosol inhaler (Ventolin HFA) 2 puff inhalation Q4H PRN shortness of breath or wheezing #18 grams 10/10/22 furosemide 40 mg tablet 40 mg PO DAILY 1 month #30 tabs 03/19/24 guaifenesin 1,200 mg tablet, extended release 12 hr (Mucus Relief ER) 1,200 mg PO BID 7 days #14 tabs 03/19/24 hydralazine 50 mg tablet 50 mg PO BID 30 days #60 tabs 03/19/24 isosorbide mononitrate 30 mg tablet,extended release 24 hr 30 mg PO DAILY 30 days #30 tabs 03/19/24 metoprolol succinate 25 mg tablet,extended release 24 hr 25 mg PO DAILY 30 days #30 tabs 03/19/24 sennosides 8.6 mg-docusate sodium 50 mg tablet (Stimulant Laxative Plus) 2 tab PO BID #0 tabs 03/19/24 Physical Exam Narrative Seen and examined. Discussed with the patient's about the diagnosis and course of the events. Patient other family members including nephew present. General: Alert, Oriented x3, Cooperative HEENT: Atraumatic, PERRLA, EOMI, Normocephalic Oral: No Gingival or Mucosal Lesions/ Ulcerations Neck: Supple, No JVD, Negative Carotid Bruits Chest wall/Lungs: Air entry diminished in bilateral lung bases. No wheezing send crepitations resolved. Mild bilateral effusion Cardiovascular: Regular rate, Regular Rhythm, Normal S1, Normal S2, systolic murmur Abdomen: Bowel Sounds Present, Soft, Non Tender, Non-Distended : No dysuria. No renal angle tenderness. No suprapubic tenderness. Extremities: No edema, Capillary Refill Less than 3 Seconds Skin: No rashes, No breakdown Musculoskeletal: RLE shorter and decreased muscle bulk of calf from polio. No Tenderness to Palpation of Joints or Extremities Neurological: Cranial nerves II-XII grossly intact, DTR 2+/4. No acute focal neurological deficit. Psych/Mental Status: Normal Affect, Appropriate. Weight / BMI Weight Weight: 168 lb 10.458 oz Body Mass Index (BMI) 22.8 ABG / Lab / Microbiology Data 03/19/24 05:13 03/19/24 05:13 Laboratory: Laboratory Results - last 24 hr 03/18/24 07:26: B-Natriuretic Peptide 868.3 H 03/19/24 05:13: WBC 7.7, RBC 2.59 L, Hgb 7.7 L, Hct 22.1 L, MCV 85.3, MCH 29.7, MCHC 34.8, RDW Std Deviation 61.5 H, RDW Coeff of Radhika 19.9 H, Plt Count 169, MPV 9.8, Immature Gran % (Auto) 0.500, Neut % (Auto) 76.7 H, Lymph % (Auto) 13.8 L, [place] % (Auto) 9.0, Eos % (Auto) 0.0, Baso % (Auto) 0.0, Absolute Neuts (auto) 5.9, Absolute Lymphs (auto) 1.07, Nucleated RBC % 0, Sodium 135 L, Potassium 5.2 H, Chloride 101, Carbon Dioxide 27.0, Anion Gap 7, BUN 43 H, Creatinine 6.79 H, Estim Creat Clear Calc 10.64, Est GFR (MDRD) Af Amer 10 L, Est GFR (MDRD) Non-Af 9 L, BUN/Creatinine Ratio 6.3 L, Glucose 97, Calcium 9.2, TSH 0.970 Microbiology: Microbiology 03/18/24 15:36 Urine, Clean Catch Streptococcus pneumoniae Antigen (M - Final 03/18/24 15:36 Urine, Clean Catch Legionella Antigen - Final 03/18/24 13:45 Nasal Secretion MRSA (PCR) - Final 03/18/24 09:28 Mucosa - Nose Respiratory Panel (PCR) - Final 03/18/24 07:02 Mucosa - Nasopharyngeal SARS-CoV-2, Influenza & RSV (PCR) - Final Radiography Diagnostic Testing: Radiology Impression Echocardiogram 03/18/24 13:41 Interpretation Summary Normal LV size. Moderate concentric left ventricular hypertrophy. The global longitudinal strain = -11.4% (abnormal). The left ventricular ejection fraction is 45 %. There is mild global hypokinesis of the left ventricle. Stage 1 diastolic dysfunction. The global longitudinal strain is moderately abnormal. Apicalsparing pattern noted. cannot exclude amyloid. Pulmonary artery systolic pressure is 48 mmHg. The global longitudinal strain is moderately abnormal. Ordering Physician: Deshawn Gil Performed By: Melanie Pa RDCS D/C Instructions DC O2, CPAP, BIPAP Needs RN Home O2 Qualification: Home O2 Qualification: Is the patient on home oxygen No 03/19/24 13:20 Home O2 Qualification: AT REST 1- Pulse Ox at rest 94 03/19/24 13:20 Home O2 Qualification: WITH AMBULATION 1- Pulse Ox with ambulation 95 03/19/24 13:20 1- Oxygen Flow Rate with 0 03/19/24 13:20 ambulation Home O2 Discharge instructions: No Meaningful Use Info Meaningful Use Meaningful Use Diagnoses (Choose all that apply): None applicable and CHF CHF ALBAN/ARB ordered at discharge?: No Reason ALBAN/ARB not ordered?: Worsening renal disease Documented LVEF (%): 45 Ischemic Stroke Statin Dosing Therapy Reference: STATIN DOSE THERAPY REFERENCE: * Patients > 75 years receive moderate or high dose statin therapy. * Patients 75 years or YOUNGER should receive HIGH intensity statin dose unless contraindicated. You will be required to document reason for non-treatment if statin daily dose does not meet guidelines. HIGH DOSE STATIN THERAPY DAILY Atorvastatin > than or = to 40 mg Rosuvastatin > than or = to 20 mg Amlodipine + Atorvastatin > than or = to 2.5/40 mg Ezetimibe + Simvastatin 10/80 mg Simvastatin 80mg Discharge Plan Admission Admit Date/Time: 03/18/24 08:23 Primary Reason for Your Visit: Acute on chronic HFpEF Attending Provider: Deshawn Gil Primary Care Provider: Jossue Yeboah [employer] ENFORCEMENT AGENT Consulting Providers: Funmilayo Carrillo Discharge Orders/Prescriptions Prescriptions: New sennosides-docusate sodium [Stimulant Laxative Plus] 8.6-50 mg Tablet 2 tab PO BID Qty: 0 0RF metoprolol succinate 25 mg Tablet Extended Release 24 Hr 25 mg PO DAILY 30 Days Qty: 30 2RF guaifenesin [Mucus Relief ER] 1,200 mg Tablet Extended Release 12hr 1,200 mg PO BID 7 Days Qty: 14 0RF hydralazine 50 mg tablet 50 mg PO BID 30 Days Qty: 60 1RF isosorbide mononitrate 30 mg Tablet Extended Release 24 Hr 30 mg PO DAILY 30 Days Qty: 30 1RF furosemide 40 mg tablet 40 mg PO DAILY 30 Days Qty: 30 2RF Rx Instructions: Take extra 40 mg dose at 5 PM for increased leg swelling or weight gain 5 pounds in 1 week. Continued atorvastatin 80 mg tablet 80 mg PO DAILY pantoprazole 40 mg tablet,delayed release (DR/EC) 40 mg PO DAILY ascorbate calcium (vitamin C) 500 mg tablet 500 mg PO DAILY albuterol sulfate [Ventolin HFA] 90 mcg/actuation HFA aerosol inhaler 2 puff inhalation Q4H PRN (Reason: shortness of breath or wheezing) Qty: 18 6RF multivitamin Tablet 1 tab PO DAILY tamsulosin [Flomax] 0.4 mg Capsule 0.4 mg PO QHS finasteride 5 mg Tablet 5 mg PO DAILY cholecalciferol (vitamin D3) 25 mcg (1,000 unit) capsule 25 mcg PO DAILY aspirin 81 mg capsule 81 mg PO DAILY Discontinued metoprolol tartrate 25 mg tablet 12.5 mg PO DAILY Referrals / Follow Up: Funmilayo Carrillo MD [Med Staff - Consulting] - Within 1 Month Batsheva Huston NP, [employer]COHOL LAW ENFORCEMENT AGENT-C [Non-Staff -Ordering Privileges] - Within 2 Weeks Jossue Yeboah NP, ALCOHOL LAW ENFORCEMENT AGENT-C [Primary Care Provider] - Disposition Disposition (needs filled in before D/C Order can be placed): Home, Self Care Charges/Coding Addendum Addendum: Patient was admitted as inpatient but was discharged and thought to be from COPD and heart failure exacerbation, pneumonia but patient had faster recovery after dialysis, sooner than expected at the time of admission. Pneumonia and COPD exacerbation ruled out. Visit Charges Inpatient E&M: 19075 Disch Hosp >30min
--- NOTE | 2024-03-19 16:15 | CHAPLAIN ---
Type of Pastoral Visit _x__ Initial Visit ___ Follow-up Visit ___ On-call Visit ___ General Patient Visit ___ Spiritual Assessment ___ Family Conference ___ Bereavement ___ Rapid Response ___ Code Blue ___ Other (describe below) Pastoral Care Referral From _x__ Patient ___ Family ___ Nurse ___ Physician ___ Internal Revenue Service Agent ___ Machine Turner ___ Other (describe below) Sacrament/Intervention _x__ Active listening ___ Anointing ___ Mandaeism ___ Bereavement ___ Communion ___ Genia exploration ___ _x__ Life review _x__ Prayer ___ Reconciliation ___ Sacrament of Sick ___ Supportive presence ___ Wedding ___ Other (describe below) Pastoral Comments patient is ready for discharge and asks about why it hasn't happened yet; pt is relaxing in the bed and states that he is doing fine; some life review given and a prayer is offered; spouse comes into room; this synthetic filament spinner left room and asked about his discharge orders for him at the desk; RN came immediately to begin his discharge
== END 2024-03-19 14:11 | disposition home or self-care (01) | DRG 291 ==
LOC: ED 08:26 → MS3 08:57
PROVIDERS: Admitting Provider Internal Medicine; Emergency Provider Emergency Medicine; PCP Nurse Practitioner Family; Visit Provider Internal Medicine
DX: I13.2 Hypertensive heart and chronic kidney disease with heart failure and with stage 5 chronic kidney disease, or end stage renal disease (principal); N18.6 End stage renal disease; I50.33 Acute on chronic diastolic (congestive) heart failure; J44.1 Chronic obstructive pulmonary disease with (acute) exacerbation; D63.1 Anemia in chronic kidney disease; Z99.2 Dependence on renal dialysis; E87.5 Hyperkalemia; F17.210 Nicotine dependence, cigarettes, uncomplicated; K21.9 Gastro-esophageal reflux disease without esophagitis; Z11.52 Encounter for screening for COVID-19; Z79.899 Other long term (current) drug therapy; Z79.02 Long term (current) use of antithrombotics/antiplatelets
CPT/HCPCS: 36415; 71046; 80048; 83735; 83880; 84100; 84443; 85025; 87449; 87631; 87633; 87641; 90937; 93005; 93306; 94640; 94668; 99284; A4216; G0257; J0696

== ENCOUNTER → 2024-04-12 | Outpatient (CLI) | payer MEDICARE, OTHER, SELFPAY ==
--- NOTE | 2024-04-12 11:34 | RAD_ITS ---
EXAM: XR Chest, 2 Views CLINICAL INDICATION: TECHNIQUE: Frontal and lateral views of the chest. COMPARISON: No relevant prior studies available. FINDINGS: LUNGS AND PLEURAL SPACES: Left lower lobe atelectasis or pneumonia. Right pleural effusion. No pneumothorax. HEART: Unremarkable. No cardiomegaly. MEDIASTINUM: Unremarkable. Normal mediastinal contour. BONES/JOINTS: Unremarkable. No acute fracture. RAD/Chest PA and Lateral IMPRESSION: 1. Left lower lobe atelectasis or pneumonia. 2. Right pleural effusion. Reading [facility]
== END | disposition home or self-care (01) ==
LOC: MTRAD 11:33
PROVIDERS: PCP Nurse Practitioner Family; Referring Provider Nurse Practitioner Family; Visit Provider Nurse Practitioner Family
DX: J44.0 Chronic obstructive pulmonary disease with (acute) lower respiratory infection (principal); J90 Pleural effusion, not elsewhere classified; J18.9 Pneumonia, unspecified organism
CPT/HCPCS: 71046

== ENCOUNTER 2024-05-07 12:18 | Emergency (ER) | payer MEDICARE, OTHER, SELFPAY ==
[2024-05-07 12:21] VITALS: BP 146/99; PULSE 71; RESP 16; TEMP 36.6; O2SAT 99; BMI 22.4
[2024-05-07 13:20] VITALS: BP 139/71; PULSE 72; RESP 17; O2SAT 99
--- NOTE | 2024-05-07 14:12 | EDS_ITS ---
HPI History of Present Illness Chief Complaint: Upper Extremity Injury [facility] Medical History History of Clostridium difficile infection Marijuana use Alcohol use Walker as ambulation aid History of renal dialysis High cholesterol Dietary restriction Chronic constipation Gastric reflux Smoker Leg cramps CPAP (continuous positive airway pressure) dependence Polio CKD (chronic kidney disease), stage IV Hypertension Home Medications ?Medication ?Instructions ?Recorded ?Last Taken ?Type finasteride 5 mg tablet 5 mg PO DAILY 05/07/2206/10 History multivitamin 1 tab PO DAILY 05/07/22 Unkn own History tamsulosin 0.4 mg capsule (Flomax) 0.4 mg PO QHS 05/0706/10/22 History ascorbate calcium (vitamin C) 500 500 mg PO DAILY 08/17 04/11 Unknown History mg tablet atorvastatin 80 mg tablet 80 mg PO DAILY 08/28/22 Unkn own History pantoprazole 40 mg tablet,delayed 40 mg PO DAILY 08/2812/03/22 04:30 History release aspirin 81 mg capsule 81 mg PO DAILY 09/26/2211/17 History cholecalciferol (vitamin D3) 25 25 mcg PO DAILY Unknown History mcg (1,000 unit) capsule albuterol sulfate 90 mcg/actuation 2 puff inhalation Q 4H PRN 10/10/22 Unknown Rx aerosol inhaler (Ventolin HFA) shortness of breath or wheezing #18 grams furosemide 40 mg tablet 40 mg PO DAILY 1 month #30 t abs 03/19/24 Unknown Rx guaifenesin 1,200 mg tablet, 1,200 mg PO BID 7 days #1 4 tabs 03/19/24 Unknown Rx extended release 12 hr (Mucus Relief ER) hydralazine 50 mg tablet 50 mg PO BID 30 days #60 tab s 03/19/24 Unknown Rx isosorbide mononitrate 30 mg 30 mg PO DAILY 30 days #3 0 tabs 03/19/24 Unknown Rx tablet,extended release 24 hr metoprolol succinate 25 mg 25 mg PO DAILY 30 days #30 tabs 03/19/24 Unknown Rx tablet,extended release 24 hr sennosides 8.6 mg-docusate sodium 2 tab PO BID #0 tabs 03/19/24 Unknown Rx 50 mg tablet (Stimulant Laxative Plus) Allergy/AdvReac Type Severity Reaction Status Date / Time No Known Allergies Allergy Verified 05/07/24 12:26 Surgical History S/P arteriovenous (AV) fistula creation Hx of surgical procedure H/O knee surgery Social History Smoking Status: Light Smoker (<10/day) second hand exposure: Yes EXAM Physical Exam Const Vital Signs: 05/07/24 12:21 05/07/24 13:20 Temperature 97.9 F Temperature Source Oral Pulse Rate 71 72 Respiratory Rate 16 17 Blood Pressure 146/99 H 139/71 H Blood Pressure Mean 114 93 Pulse Ox 99 99 Oxygen Delivery Method Room Air Room Air Discharge Plan Triage Chief Complaint: Upper Extremity Injury ED Provider: Kenny Swift Dx/Rx/DC Orders Clinical Impression: Hemorrhage of arteriovenous fistula, ESRD (end stage renal disease) Instructions: ED Hemodialysis Access Bleeding Prescriptions: No Action atorvastatin 80 mg tablet 80 mg PO DAILY pantoprazole 40 mg tablet,delayed release (DR/EC) 40 mg PO DAILY ascorbate calcium (vitamin C) 500 mg tablet 500 mg PO DAILY albuterol sulfate [Ventolin HFA] 90 mcg/actuation HFA aerosol inhaler 2 puff inhalation Q4H PRN (Reason: shortness of breath or wheezing) Qty: 18 6RF multivitamin Tablet 1 tab PO DAILY tamsulosin [Flomax] 0.4 mg Capsule 0.4 mg PO QHS finasteride 5 mg Tablet 5 mg PO DAILY cholecalciferol (vitamin D3) 25 mcg (1,000 unit) capsule 25 mcg PO DAILY aspirin 81 mg capsule 81 mg PO DAILY sennosides-docusate sodium [Stimulant Laxative Plus] 8.6-50 mg Tablet 2 tab PO BID Qty: 0 0RF metoprolol succinate 25 mg Tablet Extended Release 24 Hr 25 mg PO DAILY 30 Days Qty: 30 2RF guaifenesin [Mucus Relief ER] 1,200 mg Tablet Extended Release 12hr 1,200 mg PO BID 7 Days Qty: 14 0RF hydralazine 50 mg tablet 50 mg PO BID 30 Days Qty: 60 1RF isosorbide mononitrate 30 mg Tablet Extended Release 24 Hr 30 mg PO DAILY 30 Days Qty: 30 1RF furosemide 40 mg tablet 40 mg PO DAILY 30 Days Qty: 30 2RF Rx Instructions: Take extra 40 mg dose at 5 PM for increased leg swelling or weight gain 5 p ounds in 1 week. Primary Care Provider: Jossue Yeboah NP Referrals: Darren Russo MD [Med Staff - Active Staff] - As Needed Print Language: Maltese Disposition Disposition: Home, Self Care
--- NOTE | 2024-05-07 14:12 | EX.ED.UPPERE ---
HPI History of Present Illness Chief Complaint: Upper Extremity Injury Informant: patient Narrative Narrative: 74-year-old male was at dialysis today, after finishing they removed one of the catheters from his left upper arm AV fistula, and they were unable to get the bleeding to stop. They put a clamp on it and sent him here to the ER, the other catheter still in place and clamped. Patient denies any symptoms states he feels fine. He takes no anticoagulants when he is not at dialysis. [facility] Medical History Anemia Hyperkalemia History of Clostridium difficile infection Marijuana use Alcohol use Walker as ambulation aid History of renal dialysis High cholesterol Dietary restriction Chronic constipation Gastric reflux Smoker Leg cramps CPAP (continuous positive airway pressure) dependence Polio CKD (chronic kidney disease), stage IV Hypertension Home Medications ?Medication ?Instructions ?Recorded ?Last Taken ?Type finasteride 5 mg tablet 5 mg PO DAILY 05/07/22 06/10/22 History multivitamin 1 tab PO DAILY 05/07/22 Unknown History tamsulosin 0.4 mg capsule (Flomax) 0.4 mg PO QHS 05/07/22 06/10/22 History ascorbate calcium (vitamin C) 500 500 mg PO DAILY 08/28/22 Unknown History mg tablet atorvastatin 80 mg tablet 80 mg PO DAILY 08/28/22 Unknown History pantoprazole 40 mg tablet,delayed 40 mg PO DAILY 08/28/22 12/03/22 04:30 History release aspirin 81 mg capsule 81 mg PO DAILY 09/26/22 11/28/22 History cholecalciferol (vitamin D3) 25 25 mcg PO DAILY 09/26/22 Unknown History mcg (1,000 unit) capsule albuterol sulfate 90 mcg/actuation 2 puff inhalation Q4H PRN 10/10/22 Unknown Rx aerosol inhaler (Ventolin HFA) shortness of breath or wheezing #18 grams furosemide 40 mg tablet 40 mg PO DAILY 1 month #30 tabs 03/19/24 Unknown Rx guaifenesin 1,200 mg tablet, 1,200 mg PO BID 7 days #14 tabs 03/19/24 Unknown Rx extended release 12 hr (Mucus Relief ER) hydralazine 50 mg tablet 50 mg PO BID 30 days #60 tabs 03/19/24 Unknown Rx isosorbide mononitrate 30 mg 30 mg PO DAILY 30 days #30 tabs 03/19/24 Unknown Rx tablet,extended release 24 hr metoprolol succinate 25 mg 25 mg PO DAILY 30 days #30 tabs 03/19/24 Unknown Rx tablet,extended release 24 hr sennosides 8.6 mg-docusate sodium 2 tab PO BID #0 tabs 03/19/24 Unknown Rx 50 mg tablet (Stimulant Laxative Plus) Allergy/AdvReac Type Severity Reaction Status Date / Time No Known Allergies Allergy Verified 05/07/24 12:26 Surgical History S/P arteriovenous (AV) fistula creation Hx of surgical procedure H/O knee surgery Social History Smoking Status: Light Smoker (<10/day) second hand exposure: Yes ROS ROS ED Constitutional Constitutional ED: Denies chills or fever(s) Eyes Eyes: Denies change in vision or diplopia ENT ENT ED: Denies rhinorrhea or sore throat Cardiovascular Cardiovascular: Denies chest pain or palpitations Respiratory/Chest Respiratory/Chest: Denies cough or dyspnea Gastrointestinal Gastrointestinal: Denies abdominal pain, diarrhea, nausea or vomiting Genitourinary Genitourinary ED: Denies dysuria or hematuria Musculoskeletal Musculoskeletal: Denies back pain or neck pain Integumentary Denies abscess or rash Neurologic Neurologic: Denies headache(s), paresthesias or weakness Psychiatric Psychiatric: Denies anxiety or suicidal thoughts Hematologic/Lymphatic Hematologic/Lymphatic: Reports easy bleeding and easy bruising EXAM Physical Exam Const Vital Signs: 05/07/24 12:21 05/07/24 13:20 Temperature 97.9 F Temperature Source Oral Pulse Rate 71 72 Respiratory Rate 16 17 Blood Pressure 146/99 H 139/71 H Blood Pressure Mean 114 93 Pulse Ox 99 99 Oxygen Delivery Method Room Air Room Air Positive well nourished and well developed General Appearance ED: well developed and NAD HEENT Reports moist mucous membranes normocephalic and atraumatic Eyes PERRL and EOMs intact bilaterally Neck full ROM and supple Resp normal respiratory effort Extremity Extremity Narrative: Left upper extremity: Intact distal radial pulse, clamp over removed line site without active bleeding, the more distal line is still in place and clamped with a small amount of blood in it but no bleeding from the site. Good thrill palpable throughout this area in the distal upper arm. Neuro oriented x3, CN's II-XII intact bilaterally and no sensory deficits noted Sensorium / Orientation: awake and alert Motor Exam: strength 5/5 throughout Psych mental status grossly normal Skin no rashes or lesions noted and no wounds MDM MDM MDM Narrative Medical decision making narrative: Vital signs unremarkable patient is well-appearing with distal circulation intact and a thrill at the fistula. I gently removed the clamp as well as the dressing underneath of it, good hemostasis is obtained and there is no active oozing. I had nursing remove the other catheter, and it stopped bleeding without any issues. We observed the patient for about an hour he had no recurrent bleeding, they put a wrap with a dressing over the site, he has a good palpable thrill and distal pulse, stable for discharge home. Discharge Plan Triage Chief Complaint: Upper Extremity Injury ED Provider: Kenny Swift Dx/Rx/DC Orders Clinical Impression: Hemorrhage of arteriovenous fistula, ESRD (end stage renal disease) Instructions: ED Hemodialysis Access Bleeding Prescriptions: No Action atorvastatin 80 mg tablet 80 mg PO DAILY pantoprazole 40 mg tablet,delayed release (DR/EC) 40 mg PO DAILY ascorbate calcium (vitamin C) 500 mg tablet 500 mg PO DAILY albuterol sulfate [Ventolin HFA] 90 mcg/actuation HFA aerosol inhaler 2 puff inhalation Q4H PRN (Reason: shortness of breath or wheezing) Qty: 18 6RF multivitamin Tablet 1 tab PO DAILY tamsulosin [Flomax] 0.4 mg Capsule 0.4 mg PO QHS finasteride 5 mg Tablet 5 mg PO DAILY cholecalciferol (vitamin D3) 25 mcg (1,000 unit) capsule 25 mcg PO DAILY aspirin 81 mg capsule 81 mg PO DAILY sennosides-docusate sodium [Stimulant Laxative Plus] 8.6-50 mg Tablet 2 tab PO BID Qty: 0 0RF metoprolol succinate 25 mg Tablet Extended Release 24 Hr 25 mg PO DAILY 30 Days Qty: 30 2RF guaifenesin [Mucus Relief ER] 1,200 mg Tablet Extended Release 12hr 1,200 mg PO BID 7 Days Qty: 14 0RF hydralazine 50 mg tablet 50 mg PO BID 30 Days Qty: 60 1RF isosorbide mononitrate 30 mg Tablet Extended Release 24 Hr 30 mg PO DAILY 30 Days Qty: 30 1RF furosemide 40 mg tablet 40 mg PO DAILY 30 Days Qty: 30 2RF Rx Instructions: Take extra 40 mg dose at 5 PM for increased leg swelling or weight gain 5 pounds in 1 week. Primary Care Provider: Jossue Yeboah NP Referrals: Darren Russo MD [Med Staff - Active Staff] - As Needed Print Language: Tamazight Disposition Disposition: Home, Self Care Discharge Date/Time: 05/07/24 14:27
[2024-05-07 14:26] VITALS: BP 155/69; PULSE 72; RESP 14; TEMP 36.6; O2SAT 99
== END 2024-05-07 14:27 | disposition home or self-care (01) ==
PROVIDERS: Emergency Provider Emergency Medicine; PCP Nurse Practitioner Family; Visit Provider Emergency Medicine
DX: T82.838A Hemorrhage due to vascular prosthetic devices, implants and grafts, initial encounter (principal); I12.0 Hypertensive chronic kidney disease with stage 5 chronic kidney disease or end stage renal disease; N18.6 End stage renal disease; K21.9 Gastro-esophageal reflux disease without esophagitis; E78.00 Pure hypercholesterolemia, unspecified; K59.09 Other constipation; F17.200 Nicotine dependence, unspecified, uncomplicated; Z79.899 Other long term (current) drug therapy
CPT/HCPCS: 99284

== ENCOUNTER 2024-05-23 19:50 | Emergency (ER) | payer MEDICARE, OTHER, SELFPAY ==
[2024-05-23 19:51] VITALS: BP 186/94; PULSE 96; RESP 16; TEMP 36.9; O2SAT 95; BMI 20.7
[2024-05-23 19:52] VITALS: BP 186/94; PULSE 95; RESP 16; TEMP 36.9; O2SAT 96
--- NOTE | 2024-05-23 20:02 | EDS_ITS ---
HPI History of Present Illness Chief Complaint: Cold Sx Narrative Narrative: 74-year-old male past medical history of COPD, smoker, presents with approximately 2 days worth of upper respiratory infection type symptoms. He has had a cough with yellow sputum production mild shortness of breath. He has had runny nose as well and has bodyaches. Denies any fever, but thinks he has the flu. Denies sick contacts. No exacerbating or alleviating factors. [facility] Medical History Anemia Hyperkalemia History of Clostridium difficile infection Marijuana use Alcohol use Walker as ambulation aid History of renal dialysis High cholesterol Dietary restriction Chronic constipation Gastric reflux Smoker Leg cramps CPAP (continuous positive airway pressure) dependence Polio CKD (chronic kidney disease), stage IV Hypertension Home Medications ?Medication ?Instructions ?Recorded ?Last Taken ?Type finasteride 5 mg tablet 5 mg PO DAILY 05/07/2206/10 History multivitamin 1 tab PO DAILY 05/07/22 Unkn own History tamsulosin 0.4 mg capsule (Flomax) 0.4 mg PO QHS 05/0706/10/22 History ascorbate calcium (vitamin C) 500 500 mg PO DAILY 08/17 04/11 Unknown History mg tablet atorvastatin 80 mg tablet 80 mg PO DAILY 08/28/22 Unkn own History pantoprazole 40 mg tablet,delayed 40 mg PO DAILY 08/2812/03/22 04:30 History release aspirin 81 mg capsule 81 mg PO DAILY 09/26/2211/17 History cholecalciferol (vitamin D3) 25 25 mcg PO DAILY Unknown History mcg (1,000 unit) capsule albuterol sulfate 90 mcg/actuation 2 puff inhalation Q 4H PRN 10/10/22 Unknown Rx aerosol inhaler (Ventolin HFA) shortness of breath or wheezing #18 grams furosemide 40 mg tablet 40 mg PO DAILY 1 month #30 t abs 03/19/24 Unknown Rx guaifenesin 1,200 mg tablet, 1,200 mg PO BID 7 days #1 4 tabs 03/19/24 Unknown Rx extended release 12 hr (Mucus Relief ER) hydralazine 50 mg tablet 50 mg PO BID 30 days #60 tab s 03/19/24 Unknown Rx isosorbide mononitrate 30 mg 30 mg PO DAILY 30 days #3 0 tabs 03/19/24 Unknown Rx tablet,extended release 24 hr metoprolol succinate 25 mg 25 mg PO DAILY 30 days #30 tabs 03/19/24 Unknown Rx tablet,extended release 24 hr sennosides 8.6 mg-docusate sodium 2 tab PO BID #0 tabs 03/19/24 Unknown Rx 50 mg tablet (Stimulant Laxative Plus) azithromycin 250 mg tablet 250 mg PO DAILY 4 days #4 T ABLETS 05/23/24 Unknown Rx Allergy/AdvReac Type Severity Reaction Status Date / Time No Known Allergies Allergy Verified 05/23/24 19:51 Surgical History S/P arteriovenous (AV) fistula creation Hx of surgical procedure H/O knee surgery Social History Smoking Status: Light Smoker (<10/day) second hand exposure: Yes ROS ROS ED ROS Narrative Review of systems positive for cough with mild shortness of breath. Denies fever or chills. Occasional body aches. Positive rhinorrhea, no chest pain. Decreased appetite. No nausea or vomiting. EXAM Physical Exam Narrative Exam Narrative: Afebrile. Vital signs noted. Nontoxic-appearing. Cardiovascular examination reveals regular rate and rhythm. Positive rhonchi bilateral lungs moving a good amount of air. Occasional cough on examination. Abdomen soft nontender. Neurological examination nonfocal and nonlateralizing. Const Vital Signs: 05/23/24 19:51 05/23/24 19:52 05/23/24 21:04 Temperature 98.5 F 98.5 F Temperature Source Oral Temporal Pulse Rate 96 95 Respiratory Rate 16 16 Respiratory Effort Normal Respiratory Pattern Normal Blood Pressure 186/94 H 186/94 H Blood Pressure Mean 124 124 Pulse Ox 95 96 MDM MDM MDM Narrative Medical decision making narrative: Differential diagnosis includes but not limited to bronchitis versus pneumonia versus pneumothorax versus viral syndrome. He may also have chronic COPD exacerbation. Pulse ox is 96% on room air without evidence of hypoxia. He is afebrile here. Chest x-ray and 2 views will be obtained to rule out pneumonia. He was also swabbed for COVID, influenza, and RSV. I do not feel he requires laboratory work currently. I reviewed his respiratory swabs and they are negative for COVID, influenza, and RSV. Chest x-ray in 2 views interpreted by myself independently shows a bit of fluid overload with bibasilar atelectasis versus infiltrates and small pleural effusions. I reviewed the radiology report which confirms my independent interpretation. Is not currently hypoxic. I do feel that while these infiltrates may be secondary to end-stage renal disease, he has dialysis tomorrow and last completed at on Friday 2 days ago. I will treat him with azithromycin for more COPD flare. He was given his first dose of 500 mg here and a prescription written for 250 mg for the next 4 days. I feel he can be discharged to follow-up. Patient is motivated for discharge. He was encouraged to go to dialysis tomorrow as scheduled. Disposition is discharged home in stable condition. Return instructions were reviewed. History & Record Review Discussion w/independent historian: Patient Radiography Chest X-Ray - ED: 2 View, Read by ED Physician and Read by Radiologist Diagnostic Testing: Clinical Impression(s) from Imaging Studies Chest X-Ray 05/23/24 20:10 IMPRESSION: Cardiomegaly with bibasilar effusion/infiltrates. [facility] Dis[facility] Triage Chief Complaint: Cold Sx ED Provider: Jorge Luis Mckinney Dx/Rx/DC Orders Clinical Impression: Bronchitis, COPD (chronic obstructive pulmonary disease) Instructions: ED COPD Flare Prescriptions: New azithromycin 250 mg tablet 250 mg PO DAILY 4 Days Qty: 4 0RF No Action atorvastatin 80 mg tablet 80 mg PO DAILY pantoprazole 40 mg tablet,delayed release (DR/EC) 40 mg PO DAILY ascorbate calcium (vitamin C) 500 mg tablet 500 mg PO DAILY albuterol sulfate [Ventolin HFA] 90 mcg/actuation HFA aerosol inhaler 2 puff inhalation Q4H PRN (Reason: shortness of breath or wheezing) Qty: 18 6RF multivitamin Tablet 1 tab PO DAILY tamsulosin [Flomax] 0.4 mg Capsule 0.4 mg PO QHS finasteride 5 mg Tablet 5 mg PO DAILY cholecalciferol (vitamin D3) 25 mcg (1,000 unit) capsule 25 mcg PO DAILY aspirin 81 mg capsule 81 mg PO DAILY sennosides-docusate sodium [Stimulant Laxative Plus] 8.6-50 mg Tablet 2 tab PO BID Qty: 0 0RF metoprolol succinate 25 mg Tablet Extended Release 24 Hr 25 mg PO DAILY 30 Days Qty: 30 2RF guaifenesin [Mucus Relief ER] 1,200 mg Tablet Extended Release 12hr 1,200 mg PO BID 7 Days Qty: 14 0RF hydralazine 50 mg tablet 50 mg PO BID 30 Days Qty: 60 1RF isosorbide mononitrate 30 mg Tablet Extended Release 24 Hr 30 mg PO DAILY 30 Days Qty: 30 1RF furosemide 40 mg tablet 40 mg PO DAILY 30 Days Qty: 30 2RF Rx Instructions: Take extra 40 mg dose at 5 PM for increased leg swelling or weight gain 5 pounds in 1 week. Primary Care Provider: Jossue Yeboah NP Referrals: Jossue Yeboah NP, [employer] [Primary Care Provider] - 3-5 Days if not improving Activity Restrictions/Additional Instructions: Antibiotic as directed. Return with increased difficulty breathing, new or worsening symptoms. Go to dialysis tomorrow as scheduled. Print Language: Irish Disposition Disposition: Home, Self Care
--- NOTE | 2024-05-23 20:10 | RAD_ITS ---
PROCEDURE: CHEST PA AND LATERAL 05/23/2024 REASON FOR EXAM: COUGH, SHORTNESS OF BREATH TECHNIQUE: Frontal and lateral views of the chest. COMPARISON: Chest radiograph dated April 12, 2024 FINDINGS: Hardware: None Heart: Cardiomegaly Mediastinum: The mediastinal contour is unremarkable. Lungs: Bibasilar effusion/infiltrates. No pneumothorax. Bones: Degenerative changes are identified within the thoracic spine. RAD/Chest PA and Lateral IMPRESSION: Cardiomegaly with bibasilar effusion/infiltrates. Reading Location: [facility]
[2024-05-23] MEDS: Azithromycin 250 MG Tablet 500 MG PO (21:21)
== END 2024-05-23 21:29 | disposition home or self-care (01) ==
PROVIDERS: Emergency Provider Emergency Medicine; PCP Nurse Practitioner Family; Referring Provider Emergency Medicine; Visit Provider Emergency Medicine
DX: J44.0 Chronic obstructive pulmonary disease with (acute) lower respiratory infection (principal); N18.4 Chronic kidney disease, stage 4 (severe); J40 Bronchitis, not specified as acute or chronic; K21.9 Gastro-esophageal reflux disease without esophagitis; I12.9 Hypertensive chronic kidney disease with stage 1 through stage 4 chronic kidney disease, or unspecified chronic kidney disease; E78.00 Pure hypercholesterolemia, unspecified; K59.09 Other constipation; F17.200 Nicotine dependence, unspecified, uncomplicated; Z99.2 Dependence on renal dialysis; Z79.82 Long term (current) use of aspirin; Z79.899 Other long term (current) drug therapy
CPT/HCPCS: 71046; 87631; 99282

== ENCOUNTER 2024-07-18 22:07 | Inpatient (IN) | payer MEDICARE, OTHER, SELFPAY ==
[2024-07-18 22:07] VITALS: BP 181/81; PULSE 90; RESP 18; TEMP 36.6; O2SAT 96
[2024-07-18 22:09] VITALS: BP 181/81; PULSE 90; RESP 18; TEMP 36.6; O2SAT 96; BMI 22.8
--- NOTE | 2024-07-18 22:45 | EKG12_ITS ---
Test Reason : DYSRHYTHMIA Blood Pressure : */* mmHG Vent. Rate : 89 BPM Atrial Rate : 89 BPM P-R Int : 158 ms QRS Dur : 98 ms QT Int : 390 ms P-R-T Axes : 32 -21 74 degrees QTcB Int : 474 ms Normal sinus rhythm Possible Left atrial enlargement Left ventricular hypertrophy ( [place] , [place] product , Romhilt-Marcelo ) Inferior infarct , age undetermined Abnormal ECG Confirmed by Bennie Lin ([id number]), newspaper or periodical editor MIRTHA MELGAR ([id number]) on 07/19/2024 11:02:12 AM Referred By: Confirmed By: Bennie Lin
--- NOTE | 2024-07-18 22:55 | ED.RN ---
2253: PT. CURRENTLY GETTING EKG BY RESPIRATORY. PT. INFORMED OF TESTING ORDERED BY PROVIDER AND REFUSED BLOOD WORK, SALINE LOCK, SALINE, AND COVID FLU RSV AT THIS TIME.
--- NOTE | 2024-07-18 23:00 | RAD_ITS ---
PROCEDURE: CHEST 1 VIEW (PORTABLE) 07/18/2024 REASON FOR EXAM: WEAKNESS TECHNIQUE: Frontal view of the chest. COMPARISON: 05/23/2024 FINDINGS: Bibasilar opacities may reflect pneumonia versus atelectasis versus aspiration. Stable moderate cardiomegaly. Mild pulmonary vascular congestion and mild interstitial edema. No significant pleural effusion or pneumothorax. Left chest wall vicky. RAD/Chest 1 View (Portable) IMPRESSION: Bibasilar opacities may reflect pneumonia versus atelectasis versus aspiration. Stable moderate cardiomegaly. Mild pulmonary vascular congestion and mild interstitial edema. Reading Location: [id number]
[2024-07-18 23:08] VITALS: O2SAT 88
[2024-07-18 23:09] VITALS: BP 176/87; PULSE 87; RESP 25; TEMP 36.6; O2SAT 90
[2024-07-18 23:10] VITALS: O2SAT 95
[2024-07-18] MEDS: 0.9% Normal Saline (500mL Bag) 500 ML 999 ML IV (23:16)
[2024-07-18 23:32] LABS: Absolute Lymphocyte Count 1.06 X10^3/uL (0.83-4.51); Absolute Neutrophil Count 5.3 X10^3/uL (2.0-7.7); Basophil# 0.04 X10^3/uL; Basophil% 0.6 % (0-1); Eosinophil# 0.16 X10^3/uL; Eosinophils% 2.2 % (0-5); Hematocrit 29.1 % (40-54); Hemoglobin 10.3 g/dL (13.0-16.5); Lymphocyte # 1.06 X10^3/ul (0.83-4.51); Lymphocyte % 14.7 % (19-41); Mean Corp Hgb Conc 35.4 g/dL (32-36); Mean Corpuscular Hgb 30.4 pg (27.0-32.0); Mean Corpuscular Volume 85.8 fL (80-94); Mean Platelet Vol. 11.2 fl (6.2-12.0); Monocyte# 0.63 X10^3/uL; Monocyte% 8.8 % (0-10); NRBC Flagged by Analyzer 0 % (0-5); Neutrophil # 5.27 X10^3/uL (2.7-7.7); Neutrophil % 73.3 % (47-70); Platelet Count 179 K/mm3 (150-450); RBC Distribution Width CV 19.9 % (11.6-14.6); RBC Distribution Width SD 61.1 fl (35.1-43.9); Red Blood Count 3.39 M/mm3 (4.6-6.2); White Blood Count 7.2 K/mm3 (4.4-11.0)
[2024-07-19] VITALS (19 sets, daily range): BP systolic 84–325; BP diastolic 65–127; PULSE 73–97; RESP 16–25; TEMP 36.6–37.1; O2SAT 89–100; BMI 22.6; BMI 22.7; BMI 22.2
[2024-07-19 00:09] LABS: Phosphorus 5.7 mg/dL (2.7-4.5)
[2024-07-19 00:10] LABS: Anion Gap 16 (5-15); BUN 54 mg/dL (4-19); BUN/Creat Ratio 7.1 RATIO (10-20); Calcium,Total 9.7 mg/dL (7.6-11.0); Carbon Dioxide 23.3 mmol/L (21.0-32.0); Chloride 97 mmol/L (98-108); EST Glomerular Filtration Rate 7 (>60); Estimated Creatinine Clearance 9.76 ml/min (50-250); Glucose 100 mg/dL (70-99); Potassium 4.3 mmol/L (3.3-5.1); Sodium Level 137 mmol/L (133-145)
--- NOTE | 2024-07-19 01:21 | EX.ED.DYSGE1 ---
HPI History of Present Illness Chief Complaint: General Illness Informant: patient and spouse/S.O. Narrative Narrative: Patient is a 74-year-old male with past medical history of hypertension hyperlipidemia and chronic kidney disease on dialysis. He also has a history of COPD but does not require supplemental oxygen at baseline. Patient receives dialysis Friday and Friday and reports he has received it as directed. He states that over the last 2 to 4 days he has noticed increased generalized weakness and fatigue and has had 2 bouts of vomiting. He denies overt cough chest pain shortness of breath or abdominal pain. He denies fevers chills or any known sick contacts. He states however that he is feeling so rundown tired and weak that he is now having difficulty getting around with his walker and secondary to the worsening symptoms comes in for evaluation [facility] Medical History Anemia Hyperkalemia History of Clostridium difficile infection Marijuana use Alcohol use Walker as ambulation aid History of renal dialysis High cholesterol Dietary restriction Chronic constipation Gastric reflux Smoker Leg cramps CPAP (continuous positive airway pressure) dependence Polio CKD (chronic kidney disease), stage IV Hypertension Home Medications ?Medication ?Instructions ?Recorded ?Last Taken ?Type finasteride 5 mg tablet 5 mg PO DAILY prostate 05/07/22 06/10/22 History multivitamin 1 tab PO DAILY supplement 05/07/22 Unknown History tamsulosin 0.4 mg capsule (Flomax) 0.4 mg PO QHS prostate 05/07/22 06/10/22 History ascorbate calcium (vitamin C) 500 500 mg PO DAILY supplement 08/28/22 Unknown History mg tablet atorvastatin 80 mg tablet 80 mg PO DAILY hld 08/28/22 Unknown History aspirin 81 mg capsule 81 mg PO DAILY thinner 09/26/22 11/28/22 History cholecalciferol (vitamin D3) 25 25 mcg PO DAILY supplement 09/26/22 Unknown History mcg (1,000 unit) capsule albuterol sulfate 90 mcg/actuation 2 puff inhalation Q4H PRN 10/10/22 Unknown Rx aerosol inhaler (Ventolin HFA) shortness of breath or wheezing #18 grams isosorbide mononitrate 30 mg 30 mg PO DAILY heart 30 days #30 03/19/24 Unknown Rx tablet,extended release 24 hr tabs metoprolol succinate 25 mg 25 mg PO DAILY heart 30 days #30 03/19/24 Unknown Rx tablet,extended release 24 hr tabs furosemide 40 mg tablet 40 mg PO DAILY PRN edema 07/19/24 Unknown History hydralazine 50 mg tablet 50 mg PO DAILY bp 07/19/24 Unknown History Allergy/AdvReac Type Severity Reaction Status Date / Time No Known Allergies Allergy Verified 07/18/24 22:09 Surgical History S/P arteriovenous (AV) fistula creation Hx of surgical procedure H/O knee surgery Social History Smoking Status: Light Smoker (<10/day) second hand exposure: Yes ROS ROS ED Constitutional Constitutional ED: Reports other Details: Positive generalized fatigue/weakness ; Denies chills or fever(s) ENT ENT ED: Denies rhinorrhea or sore throat Cardiovascular Cardiovascular: Denies chest pain Respiratory/Chest Respiratory/Chest: Denies cough or dyspnea Gastrointestinal Gastrointestinal: Reports nausea and vomiting; Denies abdominal pain Musculoskeletal Musculoskeletal: Denies myalgias Integumentary Denies rash Neurologic Neurologic: Reports weakness; Denies headache(s) Hematologic/Lymphatic Hematologic/Lymphatic: Denies easy bleeding or easy bruising EXAM Physical Exam Const Vital Signs: 07/18/24 22:07 07/18/24 22:09 07/18/24 23:08 Temperature 97.9 F 97.9 F Temperature Source Oral Oral Pulse Rate 90 90 Respiratory Rate 18 18 Respiratory Effort Respiratory Pattern Blood Pressure 181/81 H 181/81 H Blood Pressure Mean 114 114 Pulse Ox 96 96 88 Oxygen Delivery Method Room Air Room Air Room Air Oxygen Flow Rate (L/min) 07/18/24 23:09 07/18/24 23:10 07/18/24 23:21 Temperature 97.9 F Temperature Source Oral Pulse Rate 87 Respiratory Rate 25 H Respiratory Effort Normal Respiratory Pattern Normal Blood Pressure 176/87 H Blood Pressure Mean 116 Pulse Ox 90 95 Oxygen Delivery Method Room Air Nasal Cannula Oxygen Flow Rate (L/min) 2 07/19/24 00:00 07/19/24 01:00 07/19/24 01:00 Temperature 98.3 F 98.6 F Temperature Source Oral Oral Pulse Rate 88 89 Respiratory Rate 25 H 25 H Respiratory Effort Respiratory Pattern Blood Pressure 176/87 H 193/94 H Blood Pressure Mean 116 127 Pulse Ox 95 95 89 Oxygen Delivery Method Nasal Cannula Nasal Cannula Room Air Oxygen Flow Rate (L/min) 2 2 07/19/24 01:23 Temperature 98.6 F Temperature Source Pulse Rate 97 Respiratory Rate 23 H Respiratory Effort Respiratory Pattern Blood Pressure 182/127 H Blood Pressure Mean 145 Pulse Ox 94 Oxygen Delivery Method Oxygen Flow Rate (L/min) Positive well nourished and well developed General Appearance ED: well developed; Negative for pallor HEENT Reports dry mucous membranes HEENT Narrative: Mucous membranes are dry and tacky No tongue or lip swelling no oral lesions no airway edema or compromise No secondary findings in the posterior pharynx to suggest infection Mouth ED: Yes dry mucous membranes Mouth: dry mucous membranes Eyes PERRL and EOMs intact bilaterally General Eye ED: Negative for scleral icterus Neck supple and no JVD Neck Narrative: No nuchal rigidity or meningeal signs Resp normal respiratory effort Resp Narrative: Breath sounds are diminished throughout with rhonchi and crackles noted in the bilateral bases However no nasal flaring retractions tachypnea or accessory muscle use Cardio regular rate and regular rhythm GI normal to inspection, nondistended, normoactive bowel sounds, non-tender, non-distended and no masses GI Narrative: No pulsatile mass or fluid wave noted Auscultation: normoactive bowel sounds Palpation: soft Extremity Extremity Narrative: Fistula in place in the left arm with palpable thrill and good bruit Lower extremities do not show any type of asymmetric edema or pitting edema; negative Homans' sign bilaterally Neuro oriented x3, CN's II-XII intact bilaterally and no sensory deficits noted Sensorium / Orientation: alert Motor Exam: strength 5/5 throughout Psych mental status grossly normal Skin no rashes or lesions noted and No skin turgor normal Skin Narrative: Skin turgor is increased General Skin Exam: Negative for jaundice or pallor MDM MDM MDM Narrative Medical decision making narrative: Patient arrived to the ER hypertensive but has a past medical history of this and otherwise with stable vitals. He reported increased generalized fatigue without any associated secondary symptoms other than 2 bouts of vomiting. Differential diagnosis is for clinically significant [place] abnormalities such as hyperkalemia or hyperphosphatemia. There is concern for acute on chronic blood loss anemia. Patient could also have potential infection such as COVID influenza or RSV or pneumonia. Therefore basic blood work with EKG and the chest x-ray were obtained. Labs showed chronic renal insufficiency with creatinine at baseline and no clinically significant electrolyte abnormality. His hemoglobin is actually above baseline at 10.3. His physical exam did show findings consistent with dehydration as he had skin tenting and dry mucous membrane. With concern that his last dialysis session remove too much fluid he was given 500 mL of normal saline. After receiving the IV fluid he did report feeling better. However the patient does not have need for supplemental oxygen at baseline and at rest he dropped his pulse ox to 88% on room air. With simple ambulation such as sitting up to the edge of the bed his pulse ox dropped to 84% on room air. The radiologist does question developing pneumonia which could be a cause for his hypoxia and generalized fatigue. Therefore this time as he is now requiring supplemental oxygen at rest and with physical activity and as there is concern for developing secondary infection I do not feel he is safe for discharge especially as he does not have oxygen at home. The case was discussed with the hospitalist who agrees with this and will admit the patient for further care. At this time as he does not have findings of sepsis there is no need for lactic acid value or blood cultures. Patient will be started on Rocephin and Zithromax secondary to the concern for underlying infection. History & Record Review Discussion w/independent historian: Patient and Significant other Lab Data Attestation: I reviewed the patient's lab results. Labs: Laboratory Results - last 24 hr 07/18/24 23:16 WBC 7.2 RBC 3.39 L Hgb 10.3 L Hct 29.1 L MCV 85.8 MCH 30.4 MCHC 35.4 RDW Std Deviation 61.1 H RDW Coeff of Radhika 19.9 H Plt Count 179 MPV 11.2 Immature Gran % (Auto) 0.400 Neut % (Auto) 73.3 H Lymph % (Auto) 14.[address] [place] % (Auto) 8.8 Eos % (Auto) 2.2 Baso % (Auto) 0.6 Absolute Neuts (auto) 5.3 Absolute Lymphs (auto) 1.06 Nucleated RBC % 0 Sodium 137 Potassium 4.3 Chloride 97 L Carbon Dioxide 23.3 Anion Gap 16 H BUN 54 H Creatinine 7.60 H* Estim Creat Clear Calc 9.76 L* Est GFR (MDRD) Non-Af 7 L BUN/Creatinine Ratio 7.1 L Glucose 100 H Calcium 9.7 Phosphorus 5.7 H Radiography Diagnostic Testing: Clinical Impression(s) from Imaging Studies Chest X-Ray 07/18/24 23:00 IMPRESSION: Bibasilar opacities may reflect pneumonia versus atelectasis versus aspiration. Stable moderate cardiomegaly. Mild pulmonary vascular congestion and mild interstitial edema. Reading Location: [facility] 1 view chest x-ray as interpreted by the emergency medicine physician reveals opacities in the bilateral lower lungs concerning for pneumonia versus atelectasis Management Discussion w/another healthcare provider: Hospitalist Discharge Plan Dx/Rx/DC Orders Clinical Impression: Hypoxia, End stage renal disease on dialysis, Pneumonia, Generalized weakness, COPD (chronic obstructive pulmonary disease) Disposition Disposition: Acute Care [facility] Discharge Date/Time: 07/19/24 02:08
--- NOTE | 2024-07-19 01:35 | PCM.HP.STD ---
HPI - General General Date of Admission: 07/19/24 HPI Narrative ILDA CAST, is a 74 M who presents to the hospital with weakness and a cough. He says that he started feeling weak approximately Friday or of this week. He went dialysis on Friday but progressively got worse over the weekend and presented this morning. He has been tolerating his dialysis just fine and he denies any sick contacts. No fevers or chills at home, his cough is nonproductive. Imaging in the emergency room demonstrates possible pneumonia, his renal function is at his baseline, and is he is due for dialysis on Friday. Initially in the ER his oxygen saturations were normal however throughout his stay he started to require increased oxygen. He was ambulated on room air and immediately dropped to 84%. [facility] Medical History Anemia Hyperkalemia History of Clostridium difficile infection Marijuana use Alcohol use Walker as ambulation aid History of renal dialysis High cholesterol Dietary restriction Chronic constipation Gastric reflux Smoker Leg cramps CPAP (continuous positive airway pressure) dependence Polio CKD (chronic kidney disease), stage IV Hypertension Home Medications ?Medication ?Instructions ?Recorded ?Last Taken ?Type finasteride 5 mg tablet 5 mg PO DAILY prostate 05/07/22 06/10/22 History multivitamin 1 tab PO DAILY supplement 05/07/22 Unknown History tamsulosin 0.4 mg capsule (Flomax) 0.4 mg PO QHS prostate 05/07/22 06/10/22 History ascorbate calcium (vitamin C) 500 500 mg PO DAILY supplement 08/28/22 Unknown History mg tablet atorvastatin 80 mg tablet 80 mg PO DAILY hld 08/28/22 Unknown History aspirin 81 mg capsule 81 mg PO DAILY thinner 09/26/22 11/28/22 History cholecalciferol (vitamin D3) 25 25 mcg PO DAILY supplement 09/26/22 Unknown History mcg (1,000 unit) capsule albuterol sulfate 90 mcg/actuation 2 puff inhalation Q4H PRN 10/10/22 Unknown Rx aerosol inhaler (Ventolin HFA) shortness of breath or wheezing #18 grams isosorbide mononitrate 30 mg 30 mg PO DAILY heart 30 days #30 03/19/24 Unknown Rx tablet,extended release 24 hr tabs metoprolol succinate 25 mg 25 mg PO DAILY heart 30 days #30 03/19/24 Unknown Rx tablet,extended release 24 hr tabs furosemide 40 mg tablet 40 mg PO DAILY PRN edema 07/19/24 Unknown History hydralazine 50 mg tablet 50 mg PO DAILY bp 07/19/24 Unknown History Allergy/AdvReac Type Severity Reaction Status Date / Time No Known Allergies Allergy Verified 07/18/24 22:09 Surgical History S/P arteriovenous (AV) fistula creation Hx of surgical procedure H/O knee surgery Social History Smoking Status: Light Smoker (<10/day) second hand exposure: Yes ROS Constitutional Constitutional: Reports weakness; Denies chills, fatigue, fever(s) or malaise Eyes Eyes: Denies blurry vision ENT HEENT: Denies headache(s) or nasal discharge Cardiovascular Cardiovascular: Denies chest pain, dyspnea on exertion or syncope Respiratory/Chest Respiratory/Chest: Reports cough; Denies shortness of breath at rest or shortness of breath with exertion Gastrointestinal Gastrointestinal: Denies constipation, diarrhea, nausea or vomiting Genitourinary Genitourinary: Denies dysuria Neurologic Neurologic: Denies focal weakness, numbness or tremor(s) Psychiatric Psychiatric: Denies anxiety or depression Vital Signs Vital Signs Vital Signs: 07/18/24 22:07 07/18/24 22:09 07/18/24 23:08 Temperature 97.9 F 97.9 F Temperature Source Oral Oral Pulse Rate 90 90 Respiratory Rate 18 18 Respiratory Effort Respiratory Pattern Blood Pressure 181/81 H 181/81 H Blood Pressure Mean 114 114 Pulse Ox 96 96 88 Oxygen Delivery Method Room Air Room Air Room Air Oxygen Flow Rate (L/min) 07/18/24 23:09 07/18/24 23:10 07/18/24 23:21 Temperature 97.9 F Temperature Source Oral Pulse Rate 87 Respiratory Rate 25 H Respiratory Effort Normal Respiratory Pattern Normal Blood Pressure 176/87 H Blood Pressure Mean 116 Pulse Ox 90 95 Oxygen Delivery Method Room Air Nasal Cannula Oxygen Flow Rate (L/min) 2 07/19/24 01:00 07/19/24 01:23 Temperature 98.6 F Temperature Source Pulse Rate 89 97 Respiratory Rate 25 H 23 H Respiratory Effort Respiratory Pattern Blood Pressure 193/94 H 182/127 H Blood Pressure Mean 127 145 Pulse Ox 95 94 Oxygen Delivery Method Nasal Cannula Oxygen Flow Rate (L/min) 2 Weight Weight: 178 lb 5.663 oz Body Mass Index (BMI) 22.8 Physical Exam Narrative General: Alert, Oriented x3, Cooperative, No apparent distress HEENT: Atraumatic, PERRLA, EOMI, Normocephalic Oral: Moist Mucosa Neck: Supple, No JVD Lungs: Diminished, Normal air movement, No rhonchi, No wheeze, No rales, crackles at the bases Cardiovascular: Regular rate, Regular Rhythm, Normal S1, Normal S2, No murmurs Abdomen: Soft, Non Tender, Non-Distended, No Hepato-splenomegaly Extremities: No edema, Capillary Refill Less than 3 Seconds, fistula with a thrill in his left upper extremity Skin: No rashes, No breakdown Musculoskeletal: No Tenderness to Palpation of Joints or Extremities Neurological: No focal neurological deficits, moves all extremities Psych/Mental Status: Normal Affect, Appropriate Results Lab / Micro Data 07/18/24 23:16 07/18/24 23:16 Labs: Laboratory Results - last 24 hr 07/18/24 23:16: WBC 7.2, RBC 3.39 L, Hgb 10.3 L, Hct 29.1 L, MCV 85.8, MCH 30.4, MCHC 35.4, RDW Std Deviation 61.1 H, RDW Coeff of Radhika 19.9 H, Plt Count 179, MPV 11.2, Immature Gran % (Auto) 0.400, Neut % (Auto) 73.3 H, Lymph % (Auto) 14.7 L, [place] % (Auto) 8.8, Eos % (Auto) 2.2, Baso % (Auto) 0.6, Absolute Neuts (auto) 5.3, Absolute Lymphs (auto) 1.06, Nucleated RBC % 0, Sodium 137, Potassium 4.3, Chloride 97 L, Carbon Dioxide 23.3, Anion Gap 16 H, BUN 54 H, Creatinine 7.60 H*, Estim Creat Clear Calc 9.76 L*, Est GFR (MDRD) Non-Af 7 L, BUN/Creatinine Ratio 7.1 L, Glucose 100 H, Calcium 9.7, Phosphorus 5.7 H Micro: Microbiology 07/18/24 23:16 Mucosa - Nasopharyngeal SARS-CoV-2, Influenza & RSV (PCR) - Final Imaging Radiology Impression Chest X-Ray 07/18/24 23:00 IMPRESSION: Bibasilar opacities may reflect pneumonia versus atelectasis versus aspiration. Stable moderate cardiomegaly. Mild pulmonary vascular congestion and mild interstitial edema. Reading Location: [facility] Assessment & Plan Assessment/Plan (1) Generalized weakness: (2) Pneumonia: PLAN: Plan 1. Generalized weakness and debility with acute hypoxic respiratory insufficiency secondary to pneumonia ? PT/OT ? Continue with Rocephin and azithromycin ? Sputum cultures pending ? He was given a little bit of fluid in the emergency room which may have precipitated his shortness of breath to some extent 2. End-stage renal disease ? Will consult nephrology for dialysis 3. Essential HTN/HLD ? Will continue with his home blood pressure medications ? Will monitor make adjustments as necessary ? Echocardiogram on 03/18/2024 with an EF of 45% stage I diastolic dysfunction, PASP of 48 mmHg 4. COPD ? Continue with incentive spirometry ? Continue with albuterol ? Will monitor make adjustments as necessary, does not appear to be in a COPD exacerbation, no wheezing on exam. 5. BPH ? Stable?continue with Flomax DVT: Heparin 75 minutes was spent on direct patient care, including documentation as well as chart review and collaboration with colleagues Charges/Coding Visit Charges Inpatient E&M: 46735 Init Hosp L3
[2024-07-19] MEDS: Ceftriaxone 1 GM/50 ML BAG IV ×2 (01:43→20:58)
[2024-07-19] MEDS: Azithromycin 500 MG in 0.9% Normal Saline (250mL Bag) 250 ML 255 MG IV ×2 (02:14→22:16)
[2024-07-19] MEDS: hydrALAZINE 50 MG Tablet PO ×2 (02:23→08:38)
[2024-07-19] MEDS: Heparin Injection (Vial) 5,000 UNIT/ML VIAL 5000 UNIT SC ×3 (02:23→22:16)
[2024-07-19 06:55] LABS: Absolute Lymphocyte Count 1.11 X10^3/uL (0.83-4.51); Absolute Neutrophil Count 5.1 X10^3/uL (2.0-7.7); Basophil# 0.04 X10^3/uL; Basophil% 0.6 % (0-1); Eosinophil# 0.16 X10^3/uL; Eosinophils% 2.3 % (0-5); Hematocrit 28.4 % (40-54); Lymphocyte # 1.11 X10^3/ul (0.83-4.51); Mean Corp Hgb Conc 35.2 g/dL (32-36); Mean Corpuscular Hgb 30.2 pg (27.0-32.0); Mean Corpuscular Volume 85.8 fL (80-94); Mean Platelet Vol. 10.2 fl (6.2-12.0); Monocyte# 0.53 X10^3/uL; Monocyte% 7.7 % (0-10); NRBC Flagged by Analyzer 0 % (0-5); Neutrophil # 5.07 X10^3/uL (2.7-7.7); Neutrophil % 73.3 % (47-70); POSITIVE MORPHOLOGY YES; Platelet Count 171 K/mm3 (150-450); RBC Distribution Width CV 20.2 % (11.6-14.6); RBC Distribution Width SD 62.7 fl (35.1-43.9); Red Blood Count 3.31 M/mm3 (4.6-6.2); White Blood Count 6.9 K/mm3 (4.4-11.0)
[2024-07-19 06:58] LABS: Differential Indicated SCAN CRITERIA MET
[2024-07-19 07:32] LABS: Anion Gap 15 (5-15); Anisocytosis 2+; BUN 54 mg/dL (4-19); Calcium,Total 9.2 mg/dL (7.6-11.0); Carbon Dioxide 21.9 mmol/L (21.0-32.0); Chloride 99 mmol/L (98-108); Creatinine, Serum 7.76 mg/dL (0.70-1.20); EST Glomerular Filtration Rate 7 (>60); Glucose 92 mg/dL (70-99); Potassium 4.3 mmol/L (3.3-5.1); Sodium Level 136 mmol/L (133-145)
[2024-07-19] MEDS: Aspirin 81 MG TAB.CHEW PO (08:38)
[2024-07-19] MEDS: Metoprolol(XL)Succ 25 MG Tablet PO (08:38)
[2024-07-19] MEDS: Isosorbide Mononitrate 30 MG Tablet PO (08:38)
[2024-07-19] MEDS: Finasteride 5 MG Tablet PO (08:38)
--- NOTE | 2024-07-19 10:18 | CON.PCM.RE_ITS ---
Assessment & Plan Assessment/Plan (1) ESRD (end stage renal disease): PLAN: 74-year-old male with past medical history significant for ESRD on hemodialysis Friday last dialyzed Friday admitted for weakness, debility, acute hypoxic respiratory insufficiency secondary to pneumonia. Chest x-ray reviewed. Patient on IV antibiotics. We will continue dialysis Friday while in hospital, plan for dialysis today and attempt fluid removal as patient/blood pressure tolerates. Chest x-ray showing some pulmonary congestion, may need to challenge and/or lower EDW by time of hospital discharge. Patient has history of anemia of chronic disease, hemoglobin trends acceptable. Blood pressures acceptable. Further orders forthcoming as hospitalization evolves, thank you for allowing us to participate in the care of Mr. Ford. HPI Consult Data Date of Consult: 07/19/24 HPI Narrative HPI Narrative: ILDA CAST, is a 74 M with past medical history significant for ESRD on hemodialysis at [facility] Friday, last dialyzed Friday who presented emergency room with complaints of weakness, feeling unwell. Chest x-ray showing possible pneumonia, pulmonary congestion, with ambulation the emergency room oxygenation dropped, patient admitted for further evaluation and treatment. Nephrology consulted in view of history of ESRD and for dialysis management. Patient still is complaining of feeling weak, states did not sleep well last night. Denies any chest pain. No shortness of breath. [facility] Medical History Anemia Hyperkalemia History of Clostridium difficile infection Marijuana use Alcohol use Walker as ambulation aid History of renal dialysis High cholesterol Dietary restriction Chronic constipation Gastric reflux Smoker Leg cramps CPAP (continuous positive airway pressure) dependence Polio CKD (chronic kidney disease), stage IV Hypertension Home Medications ?Medication ?Instructions ?Recorded ?Last Taken ?Type finasteride 5 mg tablet 5 mg PO DAILY prostate 05/0706/10/22 History multivitamin 1 tab PO DAILY supplement Unknown History tamsulosin 0.4 mg capsule (Flomax) 0.4 mg PO QHS prost ate 05/07/22 06/10/22 History ascorbate calcium (vitamin C) 500 500 mg PO DAILY supp lement 08/28/22 Unknown History mg tablet atorvastatin 80 mg tablet 80 mg PO DAILY hld 08/28/22 Unknown History aspirin 81 mg capsule 81 mg PO DAILY thinner 09/2611/28/22 History cholecalciferol (vitamin D3) 25 25 mcg PO DAILY supple ment 09/26/22 Unknown History mcg (1,000 unit) capsule albuterol sulfate 90 mcg/actuation 2 puff inhalation Q 4H PRN 10/10/22 Unknown Rx aerosol inhaler (Ventolin HFA) shortness of breath or wheezing #18 grams isosorbide mononitrate 30 mg 30 mg PO DAILY heart 30 d ays #30 03/19/24 Unknown Rx tablet,extended release 24 hr tabs metoprolol succinate 25 mg 25 mg PO DAILY heart 30 day s #30 03/19/24 Unknown Rx tablet,extended release 24 hr tabs furosemide 40 mg tablet 40 mg PO DAILY PRN edema 04/13 Unknown History hydralazine 50 mg tablet 50 mg PO DAILY bp 07/19/24 U nknown History Allergy/AdvReac Type Severity Reaction Status Date / Time No Known Allergies Allergy Verified 07/18/24 22:09 Surgical History S/P arteriovenous (AV) fistula creation Hx of surgical procedure H/O knee surgery Social History Smoking Status: Light Smoker (<10/day) second hand exposure: Yes ROS ROS Narrative As in HPI Physical Exam Narrative Alert and oriented x 3, no apparent distress S1, S2, RRR Diminished breath sounds with scattered rhonchi Abdomen soft, nontender No edema AV fistula left arm Lab / Micro Data 07/19/24 06:28 07/19/24 06:28 Labs: Laboratory Results - last 24 hr 07/18/24 23:16: WBC 7.2, RBC 3.39 L, Hgb 10.3 L, Hct 29.1 L, MCV 85.8, MCH 30.4, MCHC 35.4, RDW Std Deviation 61.1 H, RDW Coeff of Radhika 19.9 H, Plt Count 179, MPV 11.2, Immature Gran % (Auto) 0.400, Neut % (Auto) 73.3 H, Lymph % (Auto) 14.7 L, [place] % (Auto) 8.8, Eos % (Auto) 2.2, Baso % (Auto) 0.6, Absolute Neuts (auto) 5.3, Absolute Lymphs (auto) 1.06, Nucleated RBC % 0, Sodium 137, Potassium 4.3, Chloride 97 L, Carbon Dioxide 23.3, Anion Gap 16 H, BUN 54 H, Creatinine 7.60 H* , Estim Creat Clear Calc 9.76 L*, Est GFR (MDRD) Non-Af 7 L, BUN/Creatinine Ratio 7.1 L, Glucose 100 H, Calcium 9.7, Phosphorus 5.7 H 07/19/24 06:28: WBC 6.9, RBC 3.31 L, Hgb 10.0 L, Hct 28.4 L, MCV 85.8, MCH 30.2, MCHC 35.2, RDW Std Deviation 62.7 H, RDW Coeff of Radhika 20.2 H, Plt Count 171, MPV 10.2, Immature Gran % (Auto) 0.100, Neut % (Auto) 73.3 H, Lymph % (Auto) 16.0 L, [place] % (Auto) 7.7, Eos % (Auto) 2.3, Baso % (Auto) 0.6, Absolute Neuts (auto) 5.1, Absolute Lymphs (auto) 1.11, Nucleated RBC % 0, Anisocytosis 2+, Sodium 136, Potassium 4.3, Chloride 99, Carbon Dioxide 21.9, Anion Gap 15, BUN 54 H, C reatinine 7.76 H*, Estim Creat Clear Calc 9.20 L*, Est GFR (MDRD) Non-Af 7 L, B UN/Creatinine Ratio 7.0 L, Glucose 92, Calcium 9.2 Micro: Microbiology 07/18/24 23:16 Mucosa - Nasopharyngeal SARS-CoV-2, Influenza & RSV (PCR) - Final Imaging Radiology Impression Chest X-Ray 07/18/24 23:00 IMPRESSION: Bibasilar opacities may reflect pneumonia versus atelectasis versus aspiration. Stable moderate cardiomegaly. Mild pulmonary vascular congestion and mild interstitial edema. Reading Location: [facility]
--- NOTE | 2024-07-19 13:11 | CASEMGMT ---
GLORIA RAMOS Assessment Face to Face with patient for initial transition planning/care coordination assessment. GLORIA RAMOS introduced self and role at [facility], pt voices understanding. Pt is A&Ox4 and is resting comfortably in the chair and is calm. Care providers, pharmacy, and demographics verified. Admitting dx: Hypoxia and PNA LACE Strata: 3 PCP: Jossue Yeboah Specialists: Gerardo (Nephrology) Preferred Pharmacy: [facility] Insurance: MCR A/B, AETNA Supplement Prescription Benefit: Yes LNOK: Alona (W) Living Arrangements: Pt lives with his , adult daughter, and 2 y/o GS in a single story home with a basement and 3 steps to enter ADLs/IADLs: Pt states that he is independent and denies concerns Transportation: Pt's and [facility] Transportation Services. Pt states that he uses to use [employer] but was not satisfied with the cost of the transportation DME: [employer]. [employer]. Grab bars. Shower chair. Pt is currently requiring additional oxygen and may qualify for home oxygen use. A verbal list of local in-network DME companies were provided to the pt at this time. Pt prefers [employer]. HHC/SNF: Hx at [facility]. Denies HH history. HD: Pt attends HD @ [facility] in [facility] with a 0630 chair time. Pt states that his brings him to dialysis and that the [facility] Transportation Van drives him home. Smoking history: Pt states that he smokes 1-2 cigarettes per day and denies resources Pt?s goal: home Plan: Home with the continuation of OP HD. Follow for new oxygen needs. See therapy notes. At this time, the pt denies HHC, OP therapy, or SNF needs. Pt states that he plans to DC home with his family once he is medically ready and denies further questions or concerns at this time. Report given to NED CASTRO CM. Nereyda Little RN, CM
[2024-07-19] MEDS: PureFlow B 2K Dialysis Soln 1 BAG 6 BAG PF (14:40)
[2024-07-19] MEDS: 0.9% Saline Lock 10 ML Syringe IV (14:40)
[2024-07-19] MEDS: 0.9% Normal Saline 1,000 ML IV.SOLN. 1000 ML OPERA.SITE (14:40)
--- NOTE | 2024-07-19 15:05 | PCM.PROGNOTE ---
Subjective Subjective Patient seen and examined. He is still coughing. He denies any fever, chills, chest pain, nausea, vomiting or any other symptoms. Review of systems is otherwise negative. He is on room air. Objective Data Objective Data Vital Signs: Vital Signs Temp Pulse Resp BP Pulse Ox O2 Del Method O2 Flow Rate 98.7 F 84 16 154/66 H 100 Nasal Cannula 2 07/19/24 07:56 07/19/24 14:30 07/19/24 14:30 07/19/24 14:30 07/19/24 14:30 07/19/24 14:30 07/19/24 14:30 Oxygen Flow Rate (L/min) 2 Oxygen Delivery Method Nasal Cannula Weight: 171 lb 11.841 oz Body Mass Index (BMI) 22.6 Intake & Output: Intake and Output for Last 24 Hours 07/17/24 07/18/24 07/19/24 23:59 23:59 23:59 Intake Total 1225 / 1225 Balance 1225 / 1225 Lab / Micro Data 07/19/24 06:28 07/19/24 06:28 Labs: Laboratory Results - last 24 hr 07/18/24 23:16: WBC 7.2, RBC 3.39 L, Hgb 10.3 L, Hct 29.1 L, MCV 85.8, MCH 30.4, MCHC 35.4, RDW Std Deviation 61.1 H, RDW Coeff of Radhika 19.9 H, Plt Count 179, MPV 11.2, Immature Gran % (Auto) 0.400, Neut % (Auto) 73.3 H, Lymph % (Auto) 14.7 L, [place] % (Auto) 8.8, Eos % (Auto) 2.2, Baso % (Auto) 0.6, Absolute Neuts (auto) 5.3, Absolute Lymphs (auto) 1.06, Nucleated RBC % 0, Sodium 137, Potassium 4.3, Chloride 97 L, Carbon Dioxide 23.3, Anion Gap 16 H, BUN 54 H, Creatinine 7.60 H*, Estim Creat Clear Calc 9.76 L*, Est GFR (MDRD) Non-Af 7 L, BUN/Creatinine Ratio 7.1 L, Glucose 100 H, Calcium 9.7, Phosphorus 5.7 H 07/19/24 06:28: WBC 6.9, RBC 3.31 L, Hgb 10.0 L, Hct 28.4 L, MCV 85.8, MCH 30.2, MCHC 35.2, RDW Std Deviation 62.7 H, RDW Coeff of Radhika 20.2 H, Plt Count 171, MPV 10.2, Immature Gran % (Auto) 0.100, Neut % (Auto) 73.3 H, Lymph % (Auto) 16.0 L, [place] % (Auto) 7.7, Eos % (Auto) 2.3, Baso % (Auto) 0.6, Absolute Neuts (auto) 5.1, Absolute Lymphs (auto) 1.11, Nucleated RBC % 0, Anisocytosis 2+, Sodium 136, Potassium 4.3, Chloride 99, Carbon Dioxide 21.9, Anion Gap 15, BUN 54 H, Creatinine 7.76 H*, Estim Creat Clear Calc 9.20 L*, Est GFR (MDRD) Non-Af 7 L, BUN/Creatinine Ratio 7.0 L, Glucose 92, Calcium 9.2 Micro: Microbiology 07/18/24 23:16 Mucosa - Nasopharyngeal SARS-CoV-2, Influenza & RSV (PCR) - Final Radiography Diagnostic Testing: Radiology Impression Chest X-Ray 07/18/24 23:00 IMPRESSION: Bibasilar opacities may reflect pneumonia versus atelectasis versus aspiration. Stable moderate cardiomegaly. Mild pulmonary vascular congestion and mild interstitial edema. Reading Location: [facility] Physical Exam Const alert, oriented x3, no apparent distress and well nourished General Appearance: cooperative HEENT normocephalic, head/scalp atraumatic, moist oral mucous membranes, oropharynx normal and gingiva normal Eyes PERRL and EOMs intact bilaterally Neck no lymphadenopathy, supple and no JVD Lymph Lymphatic: no lymphadenopathy noted and no lymphedema noted Resp Resp Narrative: mildly diminished breath sounds bibasally. Right sided coarse crackles. On 2L of oxygen by nasal canula. Cardio regular rate, regular rhythm, S1 normal heart sound, S2 normal heart sound and no murmurs GI normal to inspection, nondistended, normoactive bowel sounds, soft to palpation, non-tender and non-distended Extremity normal capillary refill, no clubbing, cyanosis or edema and no calf tenderness General Extremity: no tenderness to palpation of joints or extremities Skin General Skin Exam: no breakdown Neuro CN's II-XII intact bilaterally, no focal motor deficits and no sensory deficits noted Motor Exam: strength 5/5 throughout and general weakness Psych thought process normal and cooperative Appearance: appropriate Assessment & Plan Assessment/Plan (1) Pneumonia: (2) Generalized weakness: PLAN: Plan #Acute hypoxia due to pneumonia on ceftriaxone and azithromycin. on 2L of oxygen by nasal canula urine for strep and legionella negative. #ESRD: on HD MWF. Nephrology on board. #Benign essential hypertension: on metoprolol. #Hyperlipidemia: on statin #COPD: not in exacerbation. ON breathing treatment with bronchodilators. Titrate oxygen to maintain sats >90% #BPH: on flomax and finasteride DVT prophylaxis: heparin Charges/Coding Visit Charges Inpatient E&M: 67438 Subs Hosp L2
[2024-07-19] MEDS: Atorvastatin Calcium 80 MG Tablet PO (22:14)
[2024-07-19] MEDS: Tamsulosin HCl 0.4 MG Capsule PO (22:15)
[2024-07-19] MEDS: Albuterol 2.5 MG/3 ML VIAL.NEB. INHALATION (22:58)
[2024-07-19] MEDS: Ipratropium/Albuterol Sulfate 3 ML AMPUL.NEB INHALATION (23:58)
[2024-07-20] VITALS (10 sets, daily range): BP systolic 136–153; BP diastolic 63–84; PULSE 83–107; RESP 16–22; TEMP 36.7–36.9; O2SAT 93–99; BMI 22.2
[2024-07-20] MEDS: Heparin Injection (Vial) 5,000 UNIT/ML VIAL 5000 UNIT SC ×3 (06:22→22:07)
[2024-07-20 06:53] LABS: Absolute Lymphocyte Count 0.76 X10^3/uL (0.83-4.51); Absolute Neutrophil Count 4.9 X10^3/uL (2.0-7.7); Basophil# 0.02 X10^3/uL; Basophil% 0.3 % (0-1); Eosinophil# 0.03 X10^3/uL; Eosinophils% 0.5 % (0-5); Hematocrit 26.2 % (40-54); Hemoglobin 9.3 g/dL (13.0-16.5); Lymphocyte # 0.76 X10^3/ul (0.83-4.51); Lymphocyte % 12.3 % (19-41); Mean Corp Hgb Conc 35.5 g/dL (32-36); Mean Corpuscular Hgb 30.4 pg (27.0-32.0); Mean Corpuscular Volume 85.6 fL (80-94); Mean Platelet Vol. 9.9 fl (6.2-12.0); Monocyte# 0.42 X10^3/uL; Monocyte% 6.8 % (0-10); NRBC Flagged by Analyzer 0 % (0-5); Neutrophil # 4.94 X10^3/uL (2.7-7.7); Neutrophil % 79.8 % (47-70); Platelet Count 167 K/mm3 (150-450); RBC Distribution Width SD 61.5 fl (35.1-43.9); Red Blood Count 3.06 M/mm3 (4.6-6.2); White Blood Count 6.2 K/mm3 (4.4-11.0)
[2024-07-20] MEDS: Aspirin 81 MG TAB.CHEW PO (07:30)
[2024-07-20 07:35] LABS: Anion Gap 12 (5-15); BUN 41 mg/dL (4-19); BUN/Creat Ratio 6.5 RATIO (10-20); Calcium,Total 9.2 mg/dL (7.6-11.0); Carbon Dioxide 24.4 mmol/L (21.0-32.0); Chloride 101 mmol/L (98-108); Creatinine, Serum 6.39 mg/dL (0.70-1.20); EST Glomerular Filtration Rate 9 (>60); Estimated Creatinine Clearance 10.97 ml/min (50-250); Glucose 100 mg/dL (70-99); Potassium 4.5 mmol/L (3.3-5.1); Sodium Level 138 mmol/L (133-145)
[2024-07-20] MEDS: Ipratropium/Albuterol Sulfate 3 ML AMPUL.NEB INHALATION ×3 (10:38→19:56)
[2024-07-20] MEDS: hydrALAZINE 50 MG Tablet PO (11:08)
[2024-07-20] MEDS: Metoprolol(XL)Succ 25 MG Tablet PO (11:08)
[2024-07-20] MEDS: Isosorbide Mononitrate 30 MG Tablet PO (11:08)
[2024-07-20] MEDS: Finasteride 5 MG Tablet PO (11:08)
--- NOTE | 2024-07-20 11:19 | PCM.PN.REN ---
Subjective Subjective States feels better today. No chest pain or shortness of breath. Denies any cramping with dialysis yesterday. Objective Data Objective Data Vital Signs: Vital Signs Temp Pulse Resp BP Pulse Ox O2 Del Method O2 Flow Rate 98.2 F 92 20 H 144/74 H 99 Nasal Cannula 2 07/20/24 07:25 07/20/24 11:08 07/20/24 10:38 07/20/24 07:25 07/20/24 07:25 07/20/24 11:11 07/20/24 11:11 Oxygen Flow Rate (L/min) 2 Oxygen Delivery Method Nasal Cannula Weight: 76.5 kg Body Mass Index (BMI) 22.2 Intake & Output: Intake and Output for Last 24 Hours 07/18/24 07/19/24 07/20/24 23:59 23:59 23:59 Intake Total 1530 / 1780 250 / 250 Output Total 1430 / 1430 Balance 100 / 350 250 / 250 Lab / Micro Data 07/20/24 06:42 07/20/24 06:42 Labs: Laboratory Results - last 24 hr 07/20/24 06:42: WBC 6.2, RBC 3.06 L, Hgb 9.3 L, Hct 26.2 L, MCV 85.6, MCH 30.4, MCHC 35.5, RDW Std Deviation 61.5 H, RDW Coeff of Radhika 20.0 H, Plt Count 167, MPV 9.9, Immature Gran % (Auto) 0.300, Neut % (Auto) 79.8 H, Lymph % (Auto) 12.3 L, [place] % (Auto) 6.8, Eos % (Auto) 0.5, Baso % (Auto) 0.3, Absolute Neuts (auto) 4.9, Absolute Lymphs (auto) 0.76 L, Nucleated RBC % 0, Sodium 138, Potassium 4.5, Chloride 101, Carbon Dioxide 24.4, Anion Gap 12, BUN 41 H, Creatinine 6.39 H, Estim Creat Clear Calc 10.97 L, Est GFR (MDRD) Non-Af 9 L, BUN/Creatinine Ratio 6.5 L, Glucose 100 H, Calcium 9.2 Micro: Microbiology 07/18/24 23:16 Mucosa - Nasopharyngeal SARS-CoV-2, Influenza & RSV (PCR) - Final Physical Exam Narrative Alert and oriented x 3, no apparent distress S1, S2, RRR Diminished breath sounds. O2 nasal cannula 2 L Abdomen soft, nontender No edema AV fistula left arm Assessment & Plan Assessment/Plan (1) ESRD (end stage renal disease): PLAN: 74-year-old male with past medical history significant for ESRD on hemodialysis Friday last dialyzed Friday admitted for weakness, debility, acute hypoxic respiratory insufficiency secondary to pneumonia. 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 Next dialysis tomorrow and will attempt around 2 L fluid removal. Orders placed for dialysis 07/21/2024. Patient tolerated 1.4 L fluid removal with dialysis yesterday. Assessment and plan reviewed with Dr. Carrillo.
--- NOTE | 2024-07-20 12:43 | PCM.PROGNOTE ---
Subjective Subjective Patient seen and examined this morning. Complained of some wheezing earlier this morning which was relieved with 2 breathing treatments. Denies any fever or chills and has no other complaints. Review of systems otherwise negative. Objective Data Objective Data Vital Signs: Vital Signs Temp Pulse Resp BP Pulse Ox O2 Del Method O2 Flow Rate 98.2 F 92 20 H 144/74 H 99 Nasal Cannula 2 07/20/24 07:25 07/20/24 11:08 07/20/24 10:38 07/20/24 07:25 07/20/24 07:25 07/20/24 11:11 07/20/24 11:11 Oxygen Flow Rate (L/min) 2 Oxygen Delivery Method Nasal Cannula Weight: 168 lb 10.458 oz Body Mass Index (BMI) 22.2 Intake & Output: Intake and Output for Last 24 Hours 07/18/24 07/19/24 07/20/24 23:59 23:59 23:59 Intake Total 1530 / 1780 490 / 490 Output Total 1430 / 1430 Balance 100 / 350 490 / 490 Lab / Micro Data 07/20/24 06:42 07/20/24 06:42 Labs: Laboratory Results - last 24 hr 07/20/24 06:42: WBC 6.2, RBC 3.06 L, Hgb 9.3 L, Hct 26.2 L, MCV 85.6, MCH 30.4, MCHC 35.5, RDW Std Deviation 61.5 H, RDW Coeff of Radhika 20.0 H, Plt Count 167, MPV 9.9, Immature Gran % (Auto) 0.300, Neut % (Auto) 79.8 H, Lymph % (Auto) 12.3 L, [place] % (Auto) 6.8, Eos % (Auto) 0.5, Baso % (Auto) 0.3, Absolute Neuts (auto) 4.9, Absolute Lymphs (auto) 0.76 L, Nucleated RBC % 0, Sodium 138, Potassium 4.5, Chloride 101, Carbon Dioxide 24.4, Anion Gap 12, BUN 41 H, Creatinine 6.39 H, Estim Creat Clear Calc 10.97 L, Est GFR (MDRD) Non-Af 9 L, BUN/Creatinine Ratio 6.5 L, Glucose 100 H, Calcium 9.2 Micro: Microbiology 07/18/24 23:16 Mucosa - Nasopharyngeal SARS-CoV-2, Influenza & RSV (PCR) - Final Physical Exam Const alert, oriented x3, no apparent distress and well nourished General Appearance: cooperative HEENT normocephalic, head/scalp atraumatic, moist oral mucous membranes, oropharynx normal and gingiva normal Eyes PERRL and EOMs intact bilaterally Neck no lymphadenopathy, supple and no JVD Lymph Lymphatic: no lymphadenopathy noted and no lymphedema noted Resp Resp Narrative: mildly diminished breath sounds bibasally. Few right sided crackles. Still on 2L of oxygen by nasal canula. Cardio regular rate, regular rhythm, S1 normal heart sound, S2 normal heart sound and no murmurs GI normal to inspection, nondistended, normoactive bowel sounds, soft to palpation, non-tender and non-distended Extremity normal capillary refill, no clubbing, cyanosis or edema and no calf tenderness General Extremity: no tenderness to palpation of joints or extremities Skin General Skin Exam: no breakdown Neuro CN's II-XII intact bilaterally, no focal motor deficits and no sensory deficits noted Motor Exam: strength 5/5 throughout and general weakness Psych thought process normal and cooperative Appearance: appropriate Assessment & Plan Assessment/Plan (1) Pneumonia: (2) Generalized weakness: PLAN: Plan #Acute hypoxia due to pneumonia on ceftriaxone and azithromycin. on 2L of oxygen by nasal canula urine for strep and legionella negative. #ESRD: on HD MWF. Nephrology on board. He had dialysis yesterday with removal of 1.4L of of fluid. Management as per nephrology. #Benign essential hypertension: on metoprolol. #Hyperlipidemia: on statin #COPD: not in exacerbation. ON breathing treatment with bronchodilators. Titrate oxygen to maintain sats >90% #BPH: on flomax and finasteride DVT prophylaxis: heparin Charges/Coding Visit Charges Inpatient E&M: 39135 Subs Hosp L2
[2024-07-20] MEDS: Ceftriaxone 1 GM/50 ML BAG IV (21:26)
[2024-07-20] MEDS: 0.9% Saline Lock 10 ML Syringe IV (21:26)
[2024-07-20] MEDS: Azithromycin 500 MG in 0.9% Normal Saline (250mL Bag) 250 ML 255 MG IV (22:03)
[2024-07-20] MEDS: Atorvastatin Calcium 80 MG Tablet PO (22:07)
[2024-07-20] MEDS: Tamsulosin HCl 0.4 MG Capsule PO (22:07)
[2024-07-20] MEDS: Albuterol 2.5 MG/3 ML VIAL.NEB. INHALATION (22:28)
[2024-07-21] VITALS (18 sets, daily range): BP systolic 83–262; BP diastolic 59–99; PULSE 74–91; RESP 12–20; TEMP 36.4–36.8; O2SAT 95–100; BMI 22.2; BMI 21.5
[2024-07-21] MEDS: Heparin Injection (Vial) 5,000 UNIT/ML VIAL 5000 UNIT SC ×2 (05:57→13:54)
[2024-07-21 06:59] LABS: Absolute Lymphocyte Count 0.98 X10^3/uL (0.83-4.51); Absolute Neutrophil Count 4.3 X10^3/uL (2.0-7.7); Basophil# 0.03 X10^3/uL; Basophil% 0.5 % (0-1); Eosinophils% 3.3 % (0-5); Hematocrit 25.9 % (40-54); Hemoglobin 9.1 g/dL (13.0-16.5); Lymphocyte # 0.98 X10^3/ul (0.83-4.51); Lymphocyte % 16.3 % (19-41); Mean Corp Hgb Conc 35.1 g/dL (32-36); Mean Corpuscular Hgb 30.2 pg (27.0-32.0); Mean Platelet Vol. 9.9 fl (6.2-12.0); Monocyte# 0.52 X10^3/uL; Monocyte% 8.6 % (0-10); NRBC Flagged by Analyzer 0 % (0-5); Neutrophil # 4.28 X10^3/uL (2.7-7.7); Platelet Count 177 K/mm3 (150-450); RBC Distribution Width CV 19.9 % (11.6-14.6); RBC Distribution Width SD 61.9 fl (35.1-43.9); Red Blood Count 3.01 M/mm3 (4.6-6.2)
[2024-07-21] MEDS: Ipratropium/Albuterol Sulfate 3 ML AMPUL.NEB INHALATION ×3 (07:11→14:59)
[2024-07-21 07:40] LABS: Anion Gap 14 (5-15); BUN 51 mg/dL (4-19); BUN/Creat Ratio 6.5 RATIO (10-20); Calcium,Total 9.1 mg/dL (7.6-11.0); Chloride 99 mmol/L (98-108); EST Glomerular Filtration Rate 7 (>60); Estimated Creatinine Clearance 8.98 ml/min (50-250); Glucose 93 mg/dL (70-99); Potassium 4.7 mmol/L (3.3-5.1); Sodium Level 136 mmol/L (133-145)
[2024-07-21] MEDS: 0.9% Normal Saline 1,000 ML IV.SOLN. 1000 ML OPERA.SITE (09:10)
[2024-07-21] MEDS: 0.9% Saline Lock 10 ML Syringe IV (09:11)
[2024-07-21] MEDS: PureFlow B 2K Dialysis Soln 1 BAG 6 BAG PF (09:11)
[2024-07-21] MEDS: Aspirin 81 MG TAB.CHEW PO (12:47)
[2024-07-21] MEDS: hydrALAZINE 50 MG Tablet PO (12:47)
[2024-07-21] MEDS: Metoprolol(XL)Succ 25 MG Tablet PO (12:48)
[2024-07-21] MEDS: Isosorbide Mononitrate 30 MG Tablet PO (12:48)
[2024-07-21] MEDS: Finasteride 5 MG Tablet PO (12:48)
--- NOTE | 2024-07-21 13:39 | PCM.DC ---
Discharge Instructions Diet Discharge Diet: Low fat / Low cholesterol DC O2, CPAP, BIPAP needs Home O2 Discharge instructions: No Dressing / Incision Discharge Activity: Return to Normal Activity Weight Bearing Status: Weight bearing as tolerated Dressing / Incision Call your doctor if you observe: Fever of 101 or Higher, Shortness of breath, Dizziness and Swelling in the ankles Follow Up Care Test Results: Test results from this visit will be discussed in further detail at your follow-up appointment, if applicable. Discharge Plan Admission Admit Date/Time: 07/19/24 01:31 Primary Reason for Your Visit: pneumonia Attending Provider: Laurel Larson Primary Care Provider: Jossue Yeboah NP Consulting Providers: Vignesh Akhtar Jayaprakas Instructions Patient Instructions: ED Pneumonia (Adult) Discharge Orders/Prescriptions Prescriptions: New doxycycline hyclate 100 mg tablet 100 mg PO BID Qty: 10 0RF Continued atorvastatin 80 mg tablet 80 mg PO DAILY ascorbate calcium (vitamin C) 500 mg tablet 500 mg PO DAILY albuterol sulfate [Ventolin HFA] 90 mcg/actuation HFA aerosol inhaler 2 puff inhalation Q4H PRN (Reason: shortness of breath or wheezing) Qty: 18 6RF multivitamin Tablet 1 tab PO DAILY tamsulosin [Flomax] 0.4 mg Capsule 0.4 mg PO QHS finasteride 5 mg Tablet 5 mg PO DAILY cholecalciferol (vitamin D3) 25 mcg (1,000 unit) capsule 25 mcg PO DAILY aspirin 81 mg capsule 81 mg PO DAILY metoprolol succinate 25 mg Tablet Extended Release 24 Hr 25 mg PO DAILY 30 Days Qty: 30 2RF isosorbide mononitrate 30 mg Tablet Extended Release 24 Hr 30 mg PO DAILY 30 Days Qty: 30 1RF furosemide 40 mg tablet 40 mg PO DAILY PRN (Reason: edema) Rx Instructions: Take extra 40 mg dose at 5 PM for increased leg swelling or weight gain 5 pounds in 1 week. hydralazine 50 mg tablet 50 mg PO DAILY Referrals / Follow Up: Jossue Yeboah NP, [employer] DRAWING CHECKER-C [Primary Care Provider] - Within 1 Week Disposition Disposition (needs filled in before D/C Order can be placed): Home, Self Care
--- NOTE | 2024-07-21 13:40 | DS.PCM_ITS ---
Providers Date of Admission: 07/19/24 Date of Discharge: 07/21/24 Primary Care Physician: Jossue Yeboah, PEN TENDER-C Consultations 07/19/24 01:57 Consult: Nephrology Routine Consulting Provider: Funmilayo Crarillo Reason for Consult: Dialysis EMERGENT Consult: No MD Notified: Yes Date Notified: 07/19/24 Time Notified: 09:16 Method of Notification: Verbal Reason For Visit: HYPOXIA AND PNEUMONIA Diagnosis Discharge Diagnosis (1) Pneumonia: Status: Acute Code(s): J18.9 - Pneumonia, unspecified organism (2) Generalized weakness: Status: Acute Code(s): R53.1 - Weakness Plan #Acute hypoxia due to pneumonia * on ceftriaxone and azithromycin. * on 2L of oxygen by nasal canula * urine for strep and legionella negative. * #ESRD: on HD MWF. Nephrology on board. He had dialysis yesterday with removal of 1.4L of of fluid. Management as per nephrology. #Benign essential hypertension: on metoprolol. #Hyperlipidemia: on statin #COPD: not in exacerbation. ON breathing treatment with bronchodilators. Titrate oxygen to maintain sats >90% #BPH: on flomax and finasteride DVT prophylaxis: heparin Medications at Discharge Home Medications finasteride 5 mg tablet 5 mg PO DAILY prostate 05/07/22 multivitamin 1 tab PO DAILY supplement 05/07/22 tamsulosin 0.4 mg capsule (Flomax) 0.4 mg PO QHS prostate 05/07/22 ascorbate calcium (vitamin C) 500 mg tablet 500 mg PO DAILY supplement 08/28/22 atorvastatin 80 mg tablet 80 mg PO DAILY hld 08/28/22 aspirin 81 mg capsule 81 mg PO DAILY thinner 09/26/22 cholecalciferol (vitamin D3) 25 mcg (1,000 unit) capsule 25 mcg PO DAILY supplement 09/26/22 albuterol sulfate 90 mcg/actuation aerosol inhaler (Ventolin HFA) 2 puff inhalation Q4H PRN shortness of breath or wheezing #18 grams 10/10/22 isosorbide mononitrate 30 mg tablet,extended release 24 hr 30 mg PO DAILY heart 30 days #30 tabs 03/19/24 metoprolol succinate 25 mg tablet,extended release 24 hr 25 mg PO DAILY heart 30 days #30 tabs 03/19/24 furosemide 40 mg tablet 40 mg PO DAILY PRN edema 07/19/24 hydralazine 50 mg tablet 50 mg PO DAILY bp 07/19/24 doxycycline hyclate 100 mg tablet 100 mg PO BID #10 tabs 07/21/24 Hospital Course Operations None Procedures Dialysis Summary of Care Provided Minutes Spent on Discharge: 45 Hospital Course: Patient is a 74-year-old male with a past medical history as outlined was admitted through the ED on 07/19/2024 with complaint of weakness and cough which has been going on for several days prior to admission. He had dialysis on the Friday before admission but his symptoms worsened over the weekend so he came in to the ED. His cough was nonproductive. Chest x-ray showed evidence of pneumonia. The patient's saturation dropped to 84% with ambulation. He was therefore admitted and managed for hypoxia due to community-acquired pneumonia. Was started on IV antibiotics and nephrology was consulted. He did have dialysis during admission. His shortness of breath gradually improved and on day of discharge patient was weaned down to room air and did well. Urine for strep and Legionella were negative. Patient did improve and so was discharged on 07/21/2024. He was discharged on p.o. doxycycline 100 mg twice daily for 5 days. He is to follow-up with his primary care doctor and follow-up with nephrology on outpatient basis. Patient was seen and examined prior to discharge. He felt much better and had no complaints. He had an uneventful night. He was willing to be discharged home as long as were able to help him with a ride home. Review of systems otherwise negative. Labs and vitals reviewed. Home medication reviewed and reconciled. Physical Exam Const alert, oriented x3 and no apparent distress General Appearance: cooperative and comfortable Orientation / Consciousness: awake HEENT normocephalic, head/scalp atraumatic, hearing grossly normal bilaterally, moist oral mucous membranes, oropharynx normal and gingiva normal Mouth: oral and palatal mucosa normal Eyes EOMs intact bilaterally and conjunctivae normal Neck no lymphadenopathy, supple and no JVD Lymph Lymphatic: no lymphadenopathy noted and no lymphedema noted Resp Resp Narrative: mildly diminished breath sounds bibasally. Few right sided crackles. weaned down to room air Cardio regular rate, regular rhythm, S1 normal heart sound, S2 normal heart sound and no murmurs GI normal to inspection, nondistended, normoactive bowel sounds, soft to palpation, non-tender and non-distended Extremity normal to inspection, full ROM, normal capillary refill, no clubbing, cyanosis or edema and no calf tenderness General Extremity: no tenderness to palpation of joints or extremities Skin no rashes or lesions noted General Skin Exam: no breakdown Neuro oriented x3, CN's II-XII intact bilaterally, moves all extremities, no focal motor deficits and no sensory deficits noted Motor Exam: strength 5/5 throughout and general weakness Psych thought process normal and cooperative Appearance: appropriate Weight / BMI Weight Weight: 163 lb 2.273 oz Body Mass Index (BMI) 21.5 ABG / Lab / Microbiology Data 07/21/24 06:50 07/21/24 06:50 Laboratory: Laboratory Results - last 24 hr 07/21/24 06:50: WBC 6.0, RBC 3.01 L, Hgb 9.1 L, Hct 25.9 L, MCV 86.0, MCH 30.2, MCHC 35.1, RDW Std Deviation 61.9 H, RDW Coeff of Radhika 19.9 H, Plt Count 177, MPV 9.9, Immature Gran % (Auto) 0.300, Neut % (Auto) 71.0 H, Lymph % (Auto) 16.3 L, [place] % (Auto) 8.6, Eos % (Auto) 3.3, Baso % (Auto) 0.5, Absolute Neuts (auto) 4.3, Absolute Lymphs (auto) 0.98, Nucleated RBC % 0, Sodium 136, Potassium 4.7, Chloride 99, Carbon Dioxide 23.0, Anion Gap 14, BUN 51 H, Creatinine 7.80 H*, E stim Creat Clear Calc 8.98 L*, Est GFR (MDRD) Non-Af 7 L, BUN/Creatinine Ratio 6.5 L, Glucose 93, Calcium 9.1 Microbiology: Microbiology 07/18/24 23:16 Mucosa - Nasopharyngeal SARS-CoV-2, Influenza & RSV (PCR) - Final D/C Instructions Discharge Diet: Low fat / Low cholesterol Discharge Activity: Return to Normal Activity Weight Bearing Status: Weight bearing as tolerated Call your doctor if you observe: Fever of 101 or Higher, Shortness of breath, Dizziness and Swelling in the ankles DC O2, CPAP, BIPAP Needs Home O2 Discharge instructions: No DC home with Oxygen: No Meaningful Use Info Meaningful Use Meaningful Use Diagnoses (Choose all that apply): None applicable Ischemic Stroke Statin Dosing Therapy Reference: STATIN DOSE THERAPY REFERENCE: * Patients > 75 years receive moderate or high dose statin therapy. * Patients 75 years or YOUNGER should receive HIGH intensity statin dose unless contraindicated. You will be required to document reason for non-treatment if statin daily dose does not meet guidelines. HIGH DOSE STATIN THERAPY DAILY Atorvastatin > than or = to 40 mg Rosuvastatin > than or = to 20 mg Amlodipine + Atorvastatin > than or = to 2.5/40 mg Ezetimibe + Simvastatin 10/80 mg Simvastatin 80mg Discharge Plan Admission Admit Date/Time: 07/19/24 01:31 Primary Reason for Your Visit: pneumonia Attending Provider: Laurel Larson Primary Care Provider: Jossue Yeboah NP Consulting Providers: Vignesh Akhtar Jayaprakas Instructions Patient Instructions: ED Pneumonia (Adult) Discharge Orders/Prescriptions Prescriptions: New doxycycline hyclate 100 mg tablet 100 mg PO BID Qty: 10 0RF Continued atorvastatin 80 mg tablet 80 mg PO DAILY ascorbate calcium (vitamin C) 500 mg tablet 500 mg PO DAILY albuterol sulfate [Ventolin HFA] 90 mcg/actuation HFA aerosol inhaler 2 puff inhalation Q4H PRN (Reason: shortness of breath or wheezing) Qty: 18 6RF multivitamin Tablet 1 tab PO DAILY tamsulosin [Flomax] 0.4 mg Capsule 0.4 mg PO QHS finasteride 5 mg Tablet 5 mg PO DAILY cholecalciferol (vitamin D3) 25 mcg (1,000 unit) capsule 25 mcg PO DAILY aspirin 81 mg capsule 81 mg PO DAILY metoprolol succinate 25 mg Tablet Extended Release 24 Hr 25 mg PO DAILY 30 Days Qty: 30 2RF isosorbide mononitrate 30 mg Tablet Extended Release 24 Hr 30 mg PO DAILY 30 Days Qty: 30 1RF furosemide 40 mg tablet 40 mg PO DAILY PRN (Reason: edema) Rx Instructions: Take extra 40 mg dose at 5 PM for increased leg swelling or weight gain 5 pounds in 1 week. hydralazine 50 mg tablet 50 mg PO DAILY Referrals / Follow Up: Jossue Yeboah NP, PEN TENDER-C [Primary Care Provider] - Within 1 Week Disposition Disposition (needs filled in before D/C Order can be placed): Home, Self Care Charges/Coding Visit Charges Inpatient E&M: 56639 Disch Hosp >30min
--- NOTE | 2024-07-21 13:46 | CASEMGMT ---
RN RICHARD spoke with RN about pt needing O2. Nurse states Pt only used O2 HS and when resting during the day due to not having his CPAP machine here, otherwise Pt has not required O2 during hospital stay.
--- NOTE | 2024-07-21 14:32 | PN.RENAL_ITS ---
Subjective Subjective Sitting up in bed finishing lunch. States breathing is better today. Patient had dialysis this morning, denies any cramping during dialysis. Objective Data Objective Data Vital Signs: Vital Signs Temp Pulse Resp BP Pulse Ox O2 Del Method O2 Flow Rate 98 F 86 18 154/73 H 95 Room Air 2 07/21/24 13:57 07/21/24 13:57 07/21/24 13:57 07/21/24 13:57 07/21/24 13:57 07/21/24 13:59 07/21/24 08:35 Oxygen Flow Rate (L/min) 2 Oxygen Delivery Method Room Air Weight: 74 kg Body Mass Index (BMI) 21.5 Intake & Output: Intake and Output for Last 24 Hours 07/19/24 07/20/24 07/21/24 23:59 23:59 23:59 Intake Total 1530 / 1780 540 / 540 255 / 255 Output Total 1430 / 1430 100 / 100 3010 / 3010 Balance 100 / 350 440 / 440 -2755 / -2755 Lab / Micro Data 07/21/24 06:50 07/21/24 06:50 Labs: Laboratory Results - last 24 hr 07/21/24 06:50: WBC 6.0, RBC 3.01 L, Hgb 9.1 L, Hct 25.9 L, MCV 86.0, MCH 30.2, MCHC 35.1, RDW Std Deviation 61.9 H, RDW Coeff of Radhika 19.9 H, Plt Count 177, MPV 9.9, Immature Gran % (Auto) 0.300, Neut % (Auto) 71.0 H, Lymph % (Auto) 16.3 L, [place] % (Auto) 8.6, Eos % (Auto) 3.3, Baso % (Auto) 0.5, Absolute Neuts (auto) 4.3, Absolute Lymphs (auto) 0.98, Nucleated RBC % 0, Sodium 136, Potassium 4.7, Chloride 99, Carbon Dioxide 23.0, Anion Gap 14, BUN 51 H, Creatinine 7.80 H*, E stim Creat Clear Calc 8.98 L*, Est GFR (MDRD) Non-Af 7 L, BUN/Creatinine Ratio 6.5 L, Glucose 93, Calcium 9.1 Micro: Microbiology 07/18/24 23:16 Mucosa - Nasopharyngeal SARS-CoV-2, Influenza & RSV (PCR) - Final Physical Exam Narrative Alert and oriented x 3, no apparent distress S1, S2, RRR Diminished breath sounds. O2 nasal cannula 2 L Abdomen soft, nontender No edema AV fistula left arm Assessment & Plan Assessment/Plan (1) ESRD (end stage renal disease): PLAN: - ESRD on hemodialysis Friday. Patient underwent dialysis today with around 2.5 L fluid removal. Will evaluate dry weight at kidney center. Possible discharge to home today. Next dialysis will be Friday at his kidney center. Weight postdialysis today 74 kg. Hemoglobin 9.1 today, patient receives ALIX and iron at kidney center. Okay for discharge from renal standpoint.
--- NOTE | 2024-07-21 16:06 | PHA.DC.MC.R ---
Pharmacy [facility] Counseling Pharmacy Service has performed discharge medication reconciliation and counseling for this patient. 1. DOXYCYCLINE 100MG PO BID X 5 DAYS The patient's discharge medication list was reviewed for discrepancies and discrepancies were resolved. The patient was counseled on the following discharge medications and changes in medications for homegoing were reviewed. The Reason for Use, instructions for use, and potential side effects were reviewed for all new medications. The patient's questions regarding all of their medications were answered. The patient was able to verbally demonstrate an understanding of their discharge medications. Medications at Discharge Home Medications finasteride 5 mg tablet 5 mg PO DAILY prostate 05/07/22 multivitamin 1 tab PO DAILY supplement 05/07/22 tamsulosin 0.4 mg capsule (Flomax) 0.4 mg PO QHS prostate 05/07/22 ascorbate calcium (vitamin C) 500 mg tablet 500 mg PO DAILY supplement 08/28/22 atorvastatin 80 mg tablet 80 mg PO DAILY hld 08/28/22 aspirin 81 mg capsule 81 mg PO DAILY thinner 09/26/22 cholecalciferol (vitamin D3) 25 mcg (1,000 unit) capsule 25 mcg PO DAILY supplement 09/26/22 albuterol sulfate 90 mcg/actuation aerosol inhaler (Ventolin HFA) 2 puff inhalation Q4H PRN shortness of breath or wheezing #18 grams 10/10/22 isosorbide mononitrate 30 mg tablet,extended release 24 hr 30 mg PO DAILY heart 30 days #30 tabs 03/19/24 metoprolol succinate 25 mg tablet,extended release 24 hr 25 mg PO DAILY heart 30 days #30 tabs 03/19/24 furosemide 40 mg tablet 40 mg PO DAILY PRN edema 07/19/24 hydralazine 50 mg tablet 50 mg PO DAILY bp 07/19/24 doxycycline hyclate 100 mg tablet 100 mg PO BID #10 tabs 07/21/24
== END 2024-07-21 18:23 | disposition home or self-care (01) | DRG 193 ==
LOC: ED 07-19 01:23 → MS3 07-19 01:40
PROVIDERS: Admitting Provider Family Medicine; Emergency Provider Emergency Medicine; PCP Nurse Practitioner Family; Visit Provider Student in an Organized Health Care Education/Training Program
DX: J18.9 Pneumonia, unspecified organism (principal); N18.6 End stage renal disease; I12.0 Hypertensive chronic kidney disease with stage 5 chronic kidney disease or end stage renal disease; J44.0 Chronic obstructive pulmonary disease with (acute) lower respiratory infection; Z99.2 Dependence on renal dialysis; E78.2 Mixed hyperlipidemia; K59.09 Other constipation; R53.83 Other fatigue; R53.81 Other malaise; R53.1 Weakness; N40.0 Benign prostatic hyperplasia without lower urinary tract symptoms; Z79.02 Long term (current) use of antithrombotics/antiplatelets; Z79.82 Long term (current) use of aspirin; Z79.899 Other long term (current) drug therapy; Z79.51 Long term (current) use of inhaled steroids; R09.02 Hypoxemia
CPT/HCPCS: 36415; 71045; 80048; 84100; 85025; 87631; 90937; 93005; 94640; 94668; 97162; 97166; 97530; 97802; 99284; A4216; G0257

== ENCOUNTER → 2024-07-27 | Outpatient (CLI) | payer MEDICARE, OTHER, SELFPAY ==
--- NOTE | 2024-07-27 09:55 | AVDS_ITS ---
Reason For Study Reason For Study: Prolonged bleeding LEFT Inflow, 252.9/121.9 cm/sec. Inflow, 2729 ml/min. Prox anastamosis, 358.3/229 cm/sec. Prox anastamosis, 3611 ml/min. Prox graft, 426.8/221.4 cm/sec. Prox graft, 3658ml/min. Mid graft, 3305/178.4 cm/sec. Mid graft, 5637 ml/min. Distal graft, 262.9/142.2 cm/sec. Distal graft, 3040 ml/min. Outflow, 487/260.6 cm/sec. Outflow, 3619 ml/min. VL/AV Fistula/Dialysis Graft Scan Interpretation Summary Patent left upper extremity fistula with normal velocities, no evidence of sten osis. Adequate flow volume and caliber throughout. Ordering Physician: Brittany Oviedo Referring Physician: Jossue Yeboah Performed By: Prudence Rosenthal RVT
== END | disposition home or self-care (01) ==
LOC: CVS 09:55
PROVIDERS: PCP Nurse Practitioner Family; Referring Provider Physician Assistant; Visit Provider Physician Assistant
DX: N18.6 End stage renal disease (principal); T82.898A Other specified complication of vascular prosthetic devices, implants and grafts, initial encounter
CPT/HCPCS: 93990

== ENCOUNTER 2024-08-30 03:12 | Emergency (ER) | payer MEDICARE, OTHER, SELFPAY ==
[2024-08-30] VITALS (7 sets, daily range): BP systolic 183–196; BP diastolic 89–91; PULSE 91–98; RESP 16–26; TEMP 36.8–36.9; O2SAT 91–96
--- NOTE | 2024-08-30 03:17 | EKG12_ITS ---
Test Reason : DYSRHYTHMIA Blood Pressure : */* mmHG Vent. Rate : 94 BPM Atrial Rate : 94 BPM P-R Int : 166 ms QRS Dur : 102 ms QT Int : 420 ms P-R-T Axes : 32 -25 90 degrees QTcB Int : 525 ms Normal sinus rhythm Possible Left atrial enlargement Left ventricular hypertrophy ( R in aVL , [place] , [employer] product ) Inferior infarct (cited on or before 18-Mar-2024) Abnormal ECG Confirmed by Bennie Lin ([id number]), writer editor CARMELA VALENTINE ([id number]) on 08/30/2024 1:11:59 PM Referred By: Confirmed By: Bennie Lin
[2024-08-30 03:32] LABS: Hematocrit 30.5 % (40-54); Hemoglobin 10.8 g/dL (13.0-16.5); Immature Granulocytes Count 0.030 X10^3/uL (0.0-0.0); Mean Corp Hgb Conc 35.4 g/dL (32-36); Mean Corpuscular Volume 86.9 fL (80-94); Mean Platelet Vol. 10.2 fl (6.2-12.0); NRBC Flagged by Analyzer 0 % (0-5); Platelet Count 160 K/mm3 (150-450); RBC Distribution Width CV 18.0 % (11.6-14.6); RBC Distribution Width SD 57.6 fl (35.1-43.9); Red Blood Count 3.51 M/mm3 (4.6-6.2); White Blood Count 7.8 K/mm3 (4.4-11.0)
--- NOTE | 2024-08-30 04:00 | RAD_ITS ---
PROCEDURE: CHEST 1 VIEW (PORTABLE) 08/30/2024 REASON FOR EXAM: DYSPNEA TECHNIQUE: Frontal view of the chest. COMPARISON: 07/18/2024 FINDINGS: Scoliosis. Upper limits of normal heart size. Surgical clips left axilla and upper arm. Under aerated lungs. Small bilateral effusions. Bibasilar airspace disease, interval worsening, atelectasis/consolidation. No pneumothorax. RAD/Chest 1 View (Portable) IMPRESSION: Small effusions and bibasilar atelectasis/consolidation. Possible aspiration p neumonia. Advise correlation. Reading Location: [place] [id number]
[2024-08-30 04:02] LABS: Anion Gap 16 (5-15); BUN 44 mg/dL (4-19); BUN/Creat Ratio 5.8 RATIO (10-20); Calcium,Total 9.5 mg/dL (7.6-11.0); Carbon Dioxide 25.0 mmol/L (21.0-32.0); Chloride 101 mmol/L (98-108); Glucose 95 mg/dL (70-99); Potassium 3.9 mmol/L (3.3-5.1)
[2024-08-30 04:20] LABS: Magnesium 2.4 mg/dL (1.5-2.2)
--- NOTE | 2024-08-30 05:33 | EX.ED.DYSGE1 ---
HPI History of Present Illness Chief Complaint: Shortness of Breath Informant: patient and spouse/S.O. Narrative Narrative: Patient is a 74-year-old male with past medical history of hypertension COPD and end-stage renal disease on dialysis. He states he receives dialysis on Friday and Friday. He states he received dialysis as directed throughout the week. However over the weekend he has noticed increased cough and shortness of breath. He states that his pulse ox was reading low at home and secondary to this he comes in for evaluation. [facility] Medical History Anemia Hyperkalemia History of Clostridium difficile infection Marijuana use Alcohol use Walker as ambulation aid History of renal dialysis High cholesterol Dietary restriction Chronic constipation Gastric reflux Smoker Leg cramps CPAP (continuous positive airway pressure) dependence Polio CKD (chronic kidney disease), stage IV Hypertension Home Medications ?Medication ?Instructions ?Recorded ?Last Taken ?Type finasteride 5 mg tablet 5 mg PO DAILY prostate 05/07/22 06/10/22 History multivitamin 1 tab PO DAILY supplement 05/07/22 Unknown History tamsulosin 0.4 mg capsule (Flomax) 0.4 mg PO QHS prostate 05/07/22 06/10/22 History ascorbate calcium (vitamin C) 500 500 mg PO DAILY supplement 08/28/22 Unknown History mg tablet atorvastatin 80 mg tablet 80 mg PO DAILY hld 08/28/22 Unknown History aspirin 81 mg capsule 81 mg PO DAILY thinner 09/26/22 11/28/22 History cholecalciferol (vitamin D3) 25 25 mcg PO DAILY supplement 09/26/22 Unknown History mcg (1,000 unit) capsule albuterol sulfate 90 mcg/actuation 2 puff inhalation Q4H PRN 10/10/22 Unknown Rx aerosol inhaler (Ventolin HFA) shortness of breath or wheezing #18 grams isosorbide mononitrate 30 mg 30 mg PO DAILY heart 30 days #03/19/24 Unknown Rx tablet,extended release 24 hr tabs metoprolol succinate 25 mg 25 mg PO DAILY heart 30 days #03/19/24 Unknown Rx tablet,extended release 24 hr tabs furosemide 40 mg tablet 40 mg PO DAILY PRN edema 07/19/24 Unknown History hydralazine 50 mg tablet 50 mg PO DAILY bp 07/19/24 Unknown History doxycycline hyclate 100 mg tablet 100 mg PO BID #10 tabs 07/21/24 Unknown Rx Allergy/AdvReac Type Severity Reaction Status Date / Time No Known Allergies Allergy Verified 08/30/24 03:13 Surgical History S/P arteriovenous (AV) fistula creation Hx of surgical procedure H/O knee surgery Social History Smoking Status: Light Smoker (<10/day) second hand exposure: Yes ROS ROS ED Constitutional Constitutional ED: Denies chills or fever(s) ENT ENT ED: Denies rhinorrhea or sore throat Cardiovascular Cardiovascular: Denies chest pain Respiratory/Chest Respiratory/Chest: Reports cough and dyspnea Gastrointestinal Gastrointestinal: Denies abdominal pain, diarrhea, nausea or vomiting Musculoskeletal Musculoskeletal: Denies back pain or myalgias Integumentary Denies rash Neurologic Neurologic: Denies headache(s) Hematologic/Lymphatic Hematologic/Lymphatic: Denies easy bleeding or easy bruising EXAM Physical Exam Const Vital Signs: 08/30/24 03:13 08/30/24 03:26 08/30/24 03:26 Temperature 98.3 F 98.3 F Temperature Source Oral Oral Pulse Rate 95 95 Respiratory Rate 16 16 Respiratory Effort Respiratory Depth Respiratory Pattern Blood Pressure 183/89 H 183/89 H Blood Pressure Mean 120 120 Pulse Ox 93 93 Oxygen Delivery Method Room Air Room Air 08/30/24 03:26 08/30/24 03:28 08/30/24 04:16 Temperature Temperature Source Pulse Rate 91 Respiratory Rate 26 H Respiratory Effort Labored Respiratory Depth Shallow Respiratory Pattern Tachypnea Tachypnea Blood Pressure Blood Pressure Mean Pulse Ox 93 Oxygen Delivery Method 08/30/24 04:17 Temperature 98.5 F Temperature Source Oral Pulse Rate 91 Respiratory Rate 23 H Respiratory Effort Respiratory Depth Respiratory Pattern Blood Pressure 196/91 H Blood Pressure Mean 126 Pulse Ox 91 Oxygen Delivery Method Room Air Positive well nourished and well developed General Appearance ED: well developed; Negative for pallor HEENT HEENT Narrative: No tongue or lip swelling no oral lesions no airway edema or compromise; no secondary findings in the posterior pharynx to indicate infection Eyes PERRL and EOMs intact bilaterally General Eye ED: Negative for scleral icterus Neck supple and no JVD Resp normal respiratory effort Resp Narrative: Breath sounds are diminished throughout there are crackles present in the bilateral bases as well as expiratory wheezing in the upper lobes. However no nasal flaring retractions tachypnea or accessory muscle use Cardio regular rate and regular rhythm Extremity Extremity Narrative: Fistula is present and in the left upper arm with palpable thrill and good bruit There is trace to +1 pitting edema in the bilateral lower extremities that is equal and symmetric Neuro oriented x3, CN's II-XII intact bilaterally and no sensory deficits noted Sensorium / Orientation: alert Motor Exam: strength 5/5 throughout Psych mental status grossly normal Skin no rashes or lesions noted General Skin Exam: Negative for jaundice or pallor MDM MDM MDM Narrative Medical decision making narrative: Patient arrived to the ER hypertensive but otherwise with stable vitals and he was satting in the mid 90s on room air. He reported increased shortness of breath and based on his history of renal disease there is concern for volume overload. Patient may also have pneumonia or simply a COPD exacerbation or acute on chronic blood loss anemia. Secondary to his basic labs were obtained as well as a chest x-ray. Hemoglobin is low at 10.8 but this is at patient's baseline. Creatinine is elevated but this is consistent with his history of end-stage renal disease. Potassium is within normal range and phosphorus is not clinically significantly elevated. Chest x-ray does show pleural effusions consistent with need for dialysis and mild volume overload. At this time the patient has dialysis scheduled roughly 1 hour from now. His pulse ox is in the low to mid 90s without need for supplemental oxygen. He also is not requiring noninvasive ventilation such as high flow nasal cannula CPAP or BiPAP. By history and exam he does not have findings concerning for pneumonia/sepsis either. Therefore at this time without need for supplemental oxygen/noninvasive ventilation and the fact he will be able to go from the ER to dialysis to remove the extra volume which is most likely the cause of his increased shortness of breath and do not feel there is need for emergent admission and he can be discharged to dialysis at this time. Please note the radiologist did read the x-ray as possible aspiration with clinical correlation advised. The patient has not had any bouts of vomiting he is afebrile he does not have leukocytosis or left shift. Therefore this is not coming correlate and the pleural effusions seen are related to volume overload not secondary infection History & Record Review Discussion w/independent historian: Patient and Significant other Lab Data Attestation: I reviewed the patient's lab results. Labs: Laboratory Results - last 24 hr 08/30/24 03:24 WBC 7.8 RBC 3.51 L Hgb 10.8 L Hct 30.5 L MCV 86.9 MCH 30.8 MCHC 35.4 RDW Std Deviation 57.6 H RDW Coeff of Radhika 18.0 H Plt Count 160 MPV 10.2 Immature Gran % (Auto) 0.400 Neut % (Auto) 75.3 H Lymph % (Auto) 14.5 L Mccormick % (Auto) 7.6 Eos % (Auto) 1.7 Baso % (Auto) 0.5 Absolute Neuts (auto) 5.9 Absolute Lymphs (auto) 1.13 Nucleated RBC % 0 Sodium 141 Potassium 3.9 Chloride 101 Carbon Dioxide 25.0 Anion Gap 16 H BUN 44 H Creatinine 7.44 H* Est GFR (MDRD) Non-Af 7 L BUN/Creatinine Ratio 5.8 L Glucose 95 Calcium 9.5 Phosphorus 5.7 H Magnesium 2.4 H Radiography Diagnostic Testing: Clinical Impression(s) from Imaging Studies Chest X-Ray 08/30/24 04:00 IMPRESSION: Small effusions and bibasilar atelectasis/consolidation. Possible aspiration pneumonia. Advise correlation. Reading Location: [place] [address] Chest x-ray as interpreted by the emergency medicine physician reveals bilateral pleural effusions without acute infiltrate or pneumothorax Discharge Plan Triage Chief Complaint: Shortness of Breath ED Provider: Shahriar Schwab Dx/Rx/DC Orders Clinical Impression: ESRD (end stage renal disease) on dialysis, Pleural effusion, bilateral, COPD (chronic obstructive pulmonary disease), Hypertension Instructions: Understanding Pleural Effusion, ED Hemodialysis Prescriptions: No Action atorvastatin 80 mg tablet 80 mg PO DAILY ascorbate calcium (vitamin C) 500 mg tablet 500 mg PO DAILY albuterol sulfate [Ventolin HFA] 90 mcg/actuation HFA aerosol inhaler 2 puff inhalation Q4H PRN (Reason: shortness of breath or wheezing) Qty: 18 6RF multivitamin Tablet 1 tab PO DAILY tamsulosin [Flomax] 0.4 mg Capsule 0.4 mg PO QHS finasteride 5 mg Tablet 5 mg PO DAILY cholecalciferol (vitamin D3) 25 mcg (1,000 unit) capsule 25 mcg PO DAILY aspirin 81 mg capsule 81 mg PO DAILY metoprolol succinate 25 mg Tablet Extended Release 24 Hr 25 mg PO DAILY 30 Days Qty: 30 2RF isosorbide mononitrate 30 mg Tablet Extended Release 24 Hr 30 mg PO DAILY 30 Days Qty: 30 1RF furosemide 40 mg tablet 40 mg PO DAILY PRN (Reason: edema) Rx Instructions: Take extra 40 mg dose at 5 PM for increased leg swelling or weight gain 5 pounds in 1 week. hydralazine 50 mg tablet 50 mg PO DAILY doxycycline hyclate 100 mg tablet 100 mg PO BID Qty: 10 0RF Primary Care Provider: Jossue Yeboah NP Referrals: Jossue Yeboah NP, [facility] [Primary Care Provider] - Activity Restrictions/Additional Instructions: Your workup today does not show any signs of obvious infection as your white count and neutrophil count are normal and you are afebrile. Your x-ray shows volume overload/pleural effusions which is related to your underlying kidney disease. Please get your dialysis today as directed as this should help remove any of the fluid present and help with your shortness of breath. If you are still having symptoms after dialysis or have any further concerns please return to the ER for repeat evaluation Print Language: Gabonese Disposition Disposition: Home, Self Care Discharge Date/Time: 08/30/24 06:44
== END 2024-08-30 06:44 | disposition home or self-care (01) ==
PROVIDERS: Emergency Provider Emergency Medicine; PCP Nurse Practitioner Family; Visit Provider Emergency Medicine
DX: J90 Pleural effusion, not elsewhere classified (principal); I12.0 Hypertensive chronic kidney disease with stage 5 chronic kidney disease or end stage renal disease; N18.6 End stage renal disease; J44.9 Chronic obstructive pulmonary disease, unspecified; Z99.2 Dependence on renal dialysis; K21.9 Gastro-esophageal reflux disease without esophagitis; E78.00 Pure hypercholesterolemia, unspecified; F17.200 Nicotine dependence, unspecified, uncomplicated; Z79.82 Long term (current) use of aspirin; Z79.899 Other long term (current) drug therapy
CPT/HCPCS: 71045; 80048; 83735; 84100; 85025; 93005; 94640; 94760; 99283; A4216

== ENCOUNTER 2024-12-29 12:32 | Emergency (ER) | payer MEDICARE, OTHER, SELFPAY ==
[2024-12-29 12:32] VITALS: BP 133/53; PULSE 45; RESP 16; TEMP 36.6; O2SAT 99
[2024-12-29 12:43] VITALS: BMI 22.2
[2024-12-29 13:32] VITALS: BP 155/64; PULSE 73; RESP 16; O2SAT 98
[2024-12-29 14:00] VITALS: BP 152/74; PULSE 81; RESP 18
--- NOTE | 2024-12-29 14:14 | EX.ED.DYSGE1 ---
HPI History of Present Illness Chief Complaint: Wound Narrative Narrative: Patient is a 74-year-old male with past medical history of end-stage renal disease on dialysis, marijuana use, GERD, hypertension who presented to the emergency department with concern for bleeding fistula. Patient notes that at the end of his dialysis session today they removed the cannula and notes that he had persistent bleeding therefore they sent him here to be further evaluated. He states that this started around 10:30 AM this morning after his dialysis session. Otherwise he has no complaints and feels well overall. [facility] Medical History Pneumonia ESRD (end stage renal disease) Anemia Hyperkalemia History of Clostridium difficile infection Marijuana use Alcohol use Walker as ambulation aid History of renal dialysis High cholesterol Dietary restriction Chronic constipation Gastric reflux Smoker Leg cramps CPAP (continuous positive airway pressure) dependence Polio CKD (chronic kidney disease), stage IV Hypertension Home Medications Medication Instructions Recorded Last Taken Type finasteride 5 mg tablet 5 mg PO DAILY prostate 05/07/22 06/10/22 History multivitamin 1 tab PO DAILY supplement 05/07/22 Unknown History tamsulosin 0.4 mg capsule (Flomax) 0.4 mg PO QHS prostate 05/07/22 06/10/22 History ascorbate calcium (vitamin C) 500 500 mg PO DAILY supplement 08/28/22 Unknown History mg tablet atorvastatin 80 mg tablet 80 mg PO DAILY hld 08/28/22 Unknown History aspirin 81 mg capsule 81 mg PO DAILY thinner 09/26/22 11/28/22 History cholecalciferol (vitamin D3) 25 25 mcg PO DAILY supplement 09/26/22 Unknown History mcg (1,000 unit) capsule albuterol sulfate 90 mcg/actuation 2 puff inhalation Q4H PRN 10/10/22 Unknown Rx aerosol inhaler (Ventolin HFA) shortness of breath or wheezing #18 grams isosorbide mononitrate 30 mg 30 mg PO DAILY heart 30 days #03/19/24 Unknown Rx tablet,extended release 24 hr tabs metoprolol succinate 25 mg 25 mg PO DAILY heart 30 days #03/19/24 Unknown Rx tablet,extended release 24 hr tabs furosemide 40 mg tablet 40 mg PO DAILY PRN edema 07/19/24 Unknown History hydralazine 50 mg tablet 50 mg PO DAILY bp 07/19/24 Unknown History Allergy/AdvReac Type Severity Reaction Status Date / Time No Known Allergies Allergy Verified 12/29/24 12:34 Family History no significant family his Surgical History S/P arteriovenous (AV) fistula creation Hx of surgical procedure H/O knee surgery Social History Smoking Status: Light Smoker (<10/day) second hand exposure: Yes ROS ROS ED ROS Narrative Constitutional: Denies lightheadedness or dizziness Neurological: Denies any numbness or tingling Skin: Complains of bleeding fistula as noted above EXAM Physical Exam Narrative Exam Narrative: General: Patient lying in bed rest comfortably did not appear to be acute distress Head: Atraumatic, normocephalic Eyes: PERRL bilaterally, EOMI bilateral, no conjunctival injection noted Neck: Soft, supple, trachea midline Cardiovascular: Regular rate Extremities: +5/5 strength in the bilateral lower extremities Neurological: Patient followed commands and that he was at [facility] the year is 2024 Skin: I removed the compression dressing that was on and the patient had no further bleeding noted thrill noted Const Vital Signs: 12/29/24 12:32 12/29/24 13:32 12/29/24 14:00 Temperature 97.8 F Temperature Source Oral Pulse Rate 45 L 73 81 Respiratory Rate 16 16 18 Blood Pressure 133/53 H 155/64 H 152/74 H Blood Pressure Mean 79 94 100 Pulse Ox 99 98 Oxygen Delivery Method Room Air Room Air MDM MDM MDM Narrative Medical decision making narrative: Patient is a 74-year-old male who presented to the emergency department from dialysis with concern for bleeding fistula. On the differential diagnose includes but not limited to bleeding fistula, resolved bleeding. Once again the patient's bleeding has resolved here in the emergency department he will be observed. Patient was observed here in the emergency department and had no further bleeding noted therefore he will be discharged home in stable condition with instructions to follow-up with his doctor in the outpatient setting and return with worsening symptoms or concerns. All question concerns answered is discharged home in stable condition. Discharge Plan Triage Chief Complaint: Wound ED Provider: Edi Armas Dx/Rx/DC Orders Clinical Impression: Hemorrhage of arteriovenous fistula, CKD (chronic kidney disease), stage IV, COPD (chronic obstructive pulmonary disease) Prescriptions: No Action atorvastatin 80 mg tablet 80 mg PO DAILY ascorbate calcium (vitamin C) 500 mg tablet 500 mg PO DAILY albuterol sulfate [Ventolin HFA] 90 mcg/actuation HFA aerosol inhaler 2 puff inhalation Q4H PRN (Reason: shortness of breath or wheezing) Qty: 18 6RF multivitamin Tablet 1 tab PO DAILY tamsulosin [Flomax] 0.4 mg Capsule 0.4 mg PO QHS finasteride 5 mg Tablet 5 mg PO DAILY cholecalciferol (vitamin D3) 25 mcg (1,000 unit) capsule 25 mcg PO DAILY aspirin 81 mg capsule 81 mg PO DAILY metoprolol succinate 25 mg Tablet Extended Release 24 Hr 25 mg PO DAILY 30 Days Qty: 30 2RF isosorbide mononitrate 30 mg Tablet Extended Release 24 Hr 30 mg PO DAILY 30 Days Qty: 30 1RF furosemide 40 mg tablet 40 mg PO DAILY PRN (Reason: edema) Rx Instructions: Take extra 40 mg dose at 5 PM for increased leg swelling or weight gain 5 pounds in 1 week. hydralazine 50 mg tablet 50 mg PO DAILY Primary Care Provider: Jossue Yeboah NP Referrals: Jossue Yeboah NP, [facility] [Primary Care Provider, [facility]] Activity Restrictions/Additional Instructions: Follow-up with your doctor in outpatient setting. Return with worsening symptoms or any concerns Print Language: Slovenian Disposition Disposition: Home, Self Care D/C Safety Score for UGIB Assessment Gigi-Blatchford Bleeding Score (GBS): Stratifies upper GI bleeding patients who are "low-risk" and candidates for outpatient management. Hemoglobin, BUN, Recent Vital Signs: Pulse Rate 81 Blood Pressure 152/74 Score Interpretation: Score of 0: A GBS of 0 is a “Low Risk” GI bleed, and is highly sensitive (99.6% in a 2007 retrospective study) for predicting which patients did not require any “medical intervention”: blood transfusion, endoscopy, or surgery. This was confirmed in a 2009 Lancet study where patients with a score of 0 were actually discharged and had no GI bleeding mortality at 6 month followup Score above 0: A GBS greater than zero suggests a “High Risk” GI bleed that is likely to require “medical intervention”: transfusion, endoscopy, or surgery. A higher GBS also correlated with a higher likelihood of needing intervention Scores >/= 6 are associated with >50% risk of needing intervention D/C Safety Score for LGIB Assessment Assessment Tool: Readmission and adverse event risk in patients with acute lower GI bleeding. Hemoglobin and Recent Vital Signs: Pulse Rate 81 12/29/24 14:00 Blood Pressure 152/74 12/29/24 14:00 Score Interpretation: Probability Percentage of safe discharge (absence of rebleeding, blood transfusion, therapeutic intervention, 28 day readmission, or ) Score of 8 or below: Consider discharge, with appropriate precautions. Score of 9 or above: Discharge NOT recommended. Consider admission with further workup and resuscitation as necessary.
[2024-12-29 14:20] VITALS: BP 152/74; PULSE 74; RESP 13; TEMP 36.6; O2SAT 98
== END 2024-12-29 14:29 | disposition home or self-care (01) ==
PROVIDERS: Emergency Provider Emergency Medicine; PCP Nurse Practitioner Family; Visit Provider Emergency Medicine
DX: T82.838A Hemorrhage due to vascular prosthetic devices, implants and grafts, initial encounter (principal); N18.6 End stage renal disease; I12.0 Hypertensive chronic kidney disease with stage 5 chronic kidney disease or end stage renal disease; J44.9 Chronic obstructive pulmonary disease, unspecified; Y84.1 Kidney dialysis as the cause of abnormal reaction of the patient, or of later complication, without mention of misadventure at the time of the procedure; K21.9 Gastro-esophageal reflux disease without esophagitis; Z99.2 Dependence on renal dialysis; E78.00 Pure hypercholesterolemia, unspecified; Z79.82 Long term (current) use of aspirin; Z79.899 Other long term (current) drug therapy; F17.200 Nicotine dependence, unspecified, uncomplicated
CPT/HCPCS: 99284